=== PATIENT | female | born 1935 | race African-American/Black ===

== ENCOUNTER 2016-06-28 13:00 | Outpatient (RCR) | payer MEDICARE, OTHER ==
[~2016-06-28 13:00] MED LIST: AMOXIL250 MG ORAL; ARICEPT10 MG ORAL; ASPIRIN EC81 MG ORAL; ATORVASTATIN CA10 MG ORAL; CORDARONE200 M1 ORAL; COREG12.5 MG ORAL; COZAAR50 MG PO; GLUCOPHAGE500 MG ORAL; IMODIUM MS REL1 EAC1 PO; LANOXIN125 MCG ORAL; LOSARTAN POTAS100 MG ORAL; METFORMIN HCL1000 M1 ORAL; NORVASC10 MG ORAL; SIMVASTATIN40 MG ORAL
== END 2016-07-20 | disposition home or self-care (01) ==
LOC: WCC 13:00
DX: L89.152 Pressure ulcer of sacral region, stage 2 (principal); L89.312 Pressure ulcer of right buttock, stage 2; G81.00 Flaccid hemiplegia affecting unspecified side; G81.91 Hemiplegia, unspecified affecting right dominant side; E11.9 Type 2 diabetes mellitus without complications; I10 Essential (primary) hypertension; I25.2 Old myocardial infarction
CPT/HCPCS: G0463 ×2

== ENCOUNTER 2016-08-09 12:47 | Outpatient (RCR) | payer MEDICARE, OTHER ==
[~2016-08-09] VITALS: Ht 162.6 cm; Wt 52.6 kg
[2016-08-13] MEDS ORDERED: Neosporin Oint 15gm TOPIC ONE (11:45)
== END 2016-08-17 | disposition home or self-care (01) ==
LOC: WCC 12:47
DX: L89.152 Pressure ulcer of sacral region, stage 2 (principal); G81.00 Flaccid hemiplegia affecting unspecified side; L89.312 Pressure ulcer of right buttock, stage 2; L89.012 Pressure ulcer of right elbow, stage 2; L89.153 Pressure ulcer of sacral region, stage 3; Z86.73 Personal history of transient ischemic attack (TIA), and cerebral infarction without residual deficits; E11.9 Type 2 diabetes mellitus without complications; I25.2 Old myocardial infarction; I10 Essential (primary) hypertension
CPT/HCPCS: G0463

== ENCOUNTER 2016-08-23 11:00 | Outpatient (RCR) | payer MEDICARE, OTHER ==
[~2016-08-23] VITALS: Ht 162.6 cm; Wt 52.6 kg
[2016-09-08] MEDS ORDERED: Lidocaine HCl 2% Jelly 5ml Tube TOPIC ONE (12:30)
== END 2016-09-17 | disposition home or self-care (01) ==
LOC: WCC 11:00
DX: L89.153 Pressure ulcer of sacral region, stage 3 (principal); L89.013 Pressure ulcer of right elbow, stage 3; G81.00 Flaccid hemiplegia affecting unspecified side; E11.9 Type 2 diabetes mellitus without complications; I10 Essential (primary) hypertension; I25.2 Old myocardial infarction
CPT/HCPCS: 11042

== ENCOUNTER 2016-10-04 13:13 | Outpatient (RCR) | payer MEDICARE, OTHER | END 2016-10-17 | disposition home or self-care (01) | LOC: WCC 13:13 | DX: L89.153 Pressure ulcer of sacral region, stage 3 (principal); L89.013 Pressure ulcer of right elbow, stage 3; G81.00 Flaccid hemiplegia affecting unspecified side; L89.211 Pressure ulcer of right hip, stage 1; I10 Essential (primary) hypertension; E11.9 Type 2 diabetes mellitus without complications; I25.2 Old myocardial infarction | CPT/HCPCS: 11042 ==

== ENCOUNTER 2016-10-18 12:33 | Outpatient (RCR) | payer MEDICARE, OTHER ==
[~2016-10-18] VITALS: Ht 162.6 cm; Wt 52.6 kg
[2016-11-05] MEDS ORDERED: Lidocaine HCl 2% Jelly 5ml Tube TOPIC ONE (15:30)
== END 2016-11-17 | disposition home or self-care (01) ==
LOC: WCC 12:33
DX: L89.153 Pressure ulcer of sacral region, stage 3 (principal); L89.013 Pressure ulcer of right elbow, stage 3; G81.00 Flaccid hemiplegia affecting unspecified side; L89.211 Pressure ulcer of right hip, stage 1; E11.9 Type 2 diabetes mellitus without complications; I10 Essential (primary) hypertension; Z86.73 Personal history of transient ischemic attack (TIA), and cerebral infarction without residual deficits; I25.2 Old myocardial infarction
CPT/HCPCS: 11043

== ENCOUNTER 2016-10-18 13:30 | Outpatient (CLI) | payer MEDICARE, OTHER ==
[2016-10-18 14:31] LABS: ALANINE AMINOTRANSFERASE 31 U/L (3-33); ALBUMIN/GLOBULIN RATIO 1.4 (1.0-2.7); ANION GAP 28 (5-15); ASPARTATE AMINO TRANSFERASE 33 U/L (5-40); CALCIUM 9.2 mg/dL (8.6-10.2); CARBON DIOXIDE 11 mEQ/L (20-30); CHLORIDE 102 mEQ/L (98-107); CREATININE 0.8 mg/dL (0.5-0.9); HEMOLYSIS 47; POTASSIUM 4.4 mEQ/L (3.4-4.9); SODIUM 141 mEQ/L (135-145); TOTAL PROTEIN 6.5 g/dL (6.6-8.7)
== END 2016-10-18 15:00 | disposition home or self-care (01) ==
LOC: LAB 13:30
DX: E46 Unspecified protein-calorie malnutrition (principal)
CPT/HCPCS: 36415; 80053

== ENCOUNTER 2016-11-24 13:27 | Outpatient (RCR) | payer MEDICARE, OTHER ==
[~2016-11-24] VITALS: Ht 162.6 cm; Wt 52.6 kg
[2016-11-26] MEDS ORDERED: Lidocaine HCl 2% Jelly 5ml Tube TOPIC ONE (14:45)
[2016-11-26] MEDS ORDERED: MULTIVITAMINS1 EAC2 ORAL (17:23)
[2016-12-01] MEDS ORDERED: LASIX20 M1 ORAL (07:48)
[2016-12-01] MEDS ORDERED: ZITHROMAX250 MG ORAL (07:48)
[2016-12-01] MEDS ORDERED: DUONEB 0.5-3(2.53 ML HHN (07:48)
[2016-12-01] MEDS ORDERED: JANUVIA25 MG ORAL (07:48)
== END 2016-12-17 | disposition home or self-care (01) ==
LOC: WCC 13:27
DX: L89.153 Pressure ulcer of sacral region, stage 3 (principal); G81.00 Flaccid hemiplegia affecting unspecified side; Z87.891 Personal history of nicotine dependence; Z86.73 Personal history of transient ischemic attack (TIA), and cerebral infarction without residual deficits; E11.9 Type 2 diabetes mellitus without complications; I10 Essential (primary) hypertension; I25.2 Old myocardial infarction
CPT/HCPCS: 11043

== ENCOUNTER 2016-11-26 15:38 | Inpatient (IN) | payer MEDICARE, OTHER ==
[~2016-11-26] VITALS: Ht 165.1 cm; Wt 53.5 kg
[2016-11-26] MEDS ORDERED: Solu-MEDROL 125mg Inj IVP ONE (16:00)
[2016-11-26] MEDS ORDERED: Ipratropium 0.02% Inh Soln 2.5ml UD HHN ONE (16:00)
--- NOTE | 2016-11-26 16:00 | Emergency Room Report ---
History of Present Illness General Chief Complaint: To Be Triaged Source: Patient, Caregiver Present Illness HPI The patient presents with wheezing and congestion her lungs. This has gotten worse since Tuesday. She's had episodes in the past and had a nebulizer prescribed in 2012. She has used it less than once a year. Since Tuesday however it's not been helpful. The buncher machine denies any vomiting. She has a recent swallowing studies but the results are not available at this time. She' s had a stroke in the past. The patient also has green diarrhea. She has not had recent antibiotics. The patient denies pain at this time. No documented fevers. She's a very distant history of smoking. 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 She was recently in hospice however the buncher machine discharged her from hospice because they were not helping. No chest pain. No abdominal pain. No rashes. No depression. Allergies: Coded Allergies: No Known Allergies (Verified , 06/03/10) Patient History Past Medical History: see triage record Past Surgical History: pacemaker Social History: Denies: smoking - distant Social History Narrative daughter is buncher machine Reviewed Nursing Documentation: PMH: Agreed, PSxH: Agreed Nursing Documentation-PMH Hx Cardiac Problems: Yes Hx Hypertension: Yes Hx Pacemaker: Yes Hx Asthma: Yes Hx COPD: No Hx Diabetes: Yes Hx Cancer: No Hx Gastrointestinal Problems: Yes - gallstones Hx Dialysis: No Hx Neurological Problems: Yes Hx Cerebrovascular Accident: Yes Hx Dementia: Yes Hx Seizures: No Hx Peripheral Neuropathy: Yes Hx Concentration Difficulty: Yes Hx Speech Problem: Yes - garbled Hx Weakness: Yes - right sided Review of Systems All Other Systems: negative except mentioned in HPI Physical Exam Vital Signs Date Time Temp Pulse Resp B/P Pulse Ox O2 Delivery O2 Flow Rate FiO2 11/26/16 16:08 77 15 Room Air 11/26/16 16:09 99.7 110/63 100 11/26/16 20:00 2.0 11/26/16 21:30 32 Sp02 EP Interpretation: reviewed, normal General Appearance: no apparent distress, GCS 15, Chronically Ill Head: normocephalic Eyes: bilateral eye PERRL, bilateral eye normal inspection ENT: dry mucus membranes Neck: supple Respiratory: no respiratory distress, crackles, rales, wheezing, expiration Cardiovascular #1: regular rate, rhythm Cardiovascular #2: 2+ radial (R) Gastrointestinal: normal inspection, normal bowel sounds, non tender, no mass, non-distended Musculoskeletal: back normal, gait/station normal, normal range of motion Neurologic: alert, DTRs symmetric, motor weakness - R and facial assymmetry, oriented - X2 Psychiatric: mood/affect normal Skin: normal inspection, warm/dry Medical Decision Making Diagnostic Impression: Primary Impression: Pneumonia Qualified Codes: J18.1 - Lobar pneumonia, unspecified organism Additional Impressions: COPD exacerbation Dysphagia Qualified Codes: R13.10 - Dysphagia, unspecified Sepsis Qualified Codes: A41.9 - Sepsis, unspecified organism ER Course The patient presents with wheezing congestion. In addition to that she's had a normal swallowing and has decreased oral intake. Differential includes aspiration pneumonia, COPD exacerbation, acute myocardial infarction, dehydration, congestive heart failure amongst others. Dilation B. was EKG, labs and chest x-ray. In addition to that she will receive breathing treatments and sitting Medrol a. Will be evaluating her for the possibility of pneumonia with blood cultures and lactate. The fact she has problems with swallowing and is not eating is significant and might contribute to the respiratory problem possibly stemming from the prior stroke. White count is normal however lactate is 6. X-ray reveals a left lower lobe infiltrate and COPD. Antibiotics were ordered and also fluid bolus is ordered. She is improved with breathing treatments and fluids. The patient is admitted to medical floor under the care of Dr. Estrella. Laboratory Tests Test 11/26/16 16:36 11/26/16 17:35 White Blood Count 7.6 K/UL (4.8-10.8) Red Blood Count 4.38 M/UL (4.20-5.40) Hemoglobin 10.6 G/DL (12.0-16.0) L Hematocrit 33.7 % (37.0-47.0) L Mean Corpuscular Volume 77 FL (80-99) L Mean Corpuscular Hemoglobin 24.2 PG (27.0-31.0) L Mean Corpuscular Hemoglobin Concent 31.5 G/DL (32.0-36.0) L Red Cell Distribution Width 18.7 % (11.6-14.8) H Platelet Count 200 K/UL (150-450) Mean Platelet Volume 7.8 FL (6.5-10.1) Neutrophils (%) (Auto) 75.1 % (45.0-75.0) H Lymphocytes (%) (Auto) 15.8 % (20.0-45.0) L Monocytes (%) (Auto) 7.9 % (1.0-10.0) Eosinophils (%) (Auto) 0.3 % (0.0-3.0) Basophils (%) (Auto) 0.9 % (0.0-2.0) Prothrombin Time 10.4 SEC (9.30-11.50) Prothrombin Time INR 1.0 (0.9-1.1) PTT 26 SEC (23-33) Sodium Level 138 mEQ/L (135-145) Potassium Level 4.5 mEQ/L (3.4-4.9) Chloride Level 100 mEQ/L (98-107) Carbon Dioxide Level 14 mEQ/L (20-30) L Anion Gap 24 (5-15) H Blood Urea Nitrogen 17 mg/dL (7-23) Creatinine 0.8 mg/dL (0.5-0.9) Estimate Glomerular Filtration Rate mL/min (>60) Glucose Level 130 mg/dL (74-106) H Lactic Acid Level 6.00 mmol/L (0.66-2.22) H Calcium Level 9.0 mg/dL (8.6-10.2) Total Bilirubin 0.3 mg/dL (0.0-1.2) Aspartate Amino Transferase (AST) 101 U/L (5-40) H Alanine Aminotransferase (ALT) 131 U/L (3-33) H Alkaline Phosphatase 76 U/L (35-104) Troponin I < 0.30 ng/mL (<=0.30) Pro-B-Type Natriuretic Peptide 4041 pg/mL (0-450) H Total Protein 6.5 g/dL (6.6-8.7) L Albumin 3.1 g/dL (3.5-5.2) L Globulin 3.4 g/dL Albumin/Globulin Ratio 0.9 (1.0-2.7) L Urine Color Yellow Urine Appearance Clear Urine pH 5 (4.5-8.0) Urine Specific [place] 1.015 (1.005-1.035) Urine Protein 2+ (NEGATIVE) H Urine Glucose (UA) Negative (NEGATIVE) Urine Ketones Negative (NEGATIVE) Urine Occult Blood 4+ (NEGATIVE) H Urine Nitrite Negative (NEGATIVE) Urine Bilirubin Negative (NEGATIVE) Urine Urobilinogen Normal MG/DL (0.0-1.0) Urine Leukocyte Esterase 2+ (NEGATIVE) H Urine RBC Pending Urine WBC Pending Urine Squamous Epithelial Cells Pending Urine Bacteria Pending EKG Diagnostic Results Rate: normal Rhythm: NSR ST Segments: other - RBBB Rhythm Strip Diag. Results EP Interpretation: yes Rhythm: NSR, no PVC's, no ectopy Chest X-Ray Diagnostic Results Chest X-Ray Ordered: Yes # of Views/Limited/Complete: 1 View Interpretation: no effusion, no pneumothorax, other - copd, pacer, LLL infiltrate, possible paratracheal mass R, dilated bowels Indication: Shortness of Breath Impression: Other - see above Date Electronically Signed: Nov 26, 2016 Time Electronically Signed: 16:32 - ewa Last Vital Signs Date Time Temp Pulse Resp B/P Pulse Ox O2 Delivery O2 Flow Rate FiO2 11/26/16 23:47 78 16 99 Nasal Cannula 3.0 32 11/26/16 21:00 120/73 11/26/16 21:00 98.1 Status: improved Disposition: ADMITTED INPATIENT Condition: Serious Robert Singh M.D. Nov 26, 2016 16:00
[2016-11-26] MEDS: Albuterol ud Inhalation HHN SCH ×3 (16:10→16:26)
--- NOTE | 2016-11-26 16:48 | Diagnostic Imaging Report ---
Indication: DYSPNEA Technique: One view of the chest Comparison: 09/19/2015 Findings: Hemidiaphragm remains elevated, more so than on the prior exam. There is some consolidation at the left lung base. The bilateral pleural spaces, right lung are clear. Calcified granuloma remains in the left hilar region Right paratracheal density is unchanged from the previous as well as multiple earlier exams. Left chest AICD remains Impression: Left basilar infiltrate, likely pneumonia Other findings as noted
[2016-11-26 17:09] LABS: BASOPHILS % (AUTO) 0.9 % (0.0-2.0); EOSINOPHILS % (AUTO) 0.3 % (0.0-3.0); LYMPHOCYTES % (AUTO) 15.8 % (20.0-45.0); MEAN CORPUSCULAR HEMOGLOBIN 24.2 PG (27.0-31.0); MEAN CORPUSCULAR HGB CONC 31.5 G/DL (32.0-36.0); MEAN CORPUSCULAR VOLUME 77 FL (80-99); MEAN PLATELET VOLUME 7.8 FL (6.5-10.1); MONOCYTES % (AUTO) 7.9 % (1.0-10.0); NEUTROPHILS % (AUTO) 75.1 % (45.0-75.0); PLATELET COUNT 200 K/UL (150-450); RED BLOOD COUNT 4.38 M/UL (4.20-5.40); RED CELL DISTRIBUTION WIDTH 18.7 % (11.6-14.8); WHITE BLOOD COUNT 7.6 K/UL (4.8-10.8)
[2016-11-26 17:16] LABS: PROTHROMBIN TIME 10.4 SEC (9.30-11.50)
[2016-11-26] MEDS ORDERED: MULTIVITAMINS1 EAC2 ORAL (17:23)
[2016-11-26 17:31] LABS: TROPONIN I < 0.30 ng/mL (<=0.30)
[2016-11-26 17:34] LABS: ALANINE AMINOTRANSFERASE 131 U/L (3-33); ALBUMIN/GLOBULIN RATIO 0.9 (1.0-2.7); ANION GAP 24 (5-15); ASPARTATE AMINO TRANSFERASE 101 U/L (5-40); CARBON DIOXIDE 14 mEQ/L (20-30); CHLORIDE 100 mEQ/L (98-107); CREATININE 0.8 mg/dL (0.5-0.9); HEMOLYSIS 51; POTASSIUM 4.5 mEQ/L (3.4-4.9); SODIUM 138 mEQ/L (135-145); TOTAL PROTEIN 6.5 g/dL (6.6-8.7)
[2016-11-26 18:10] LABS: REFLEX LACTIC ACID YES OR NO YES
[2016-11-26 18:11] VITALS: BP 116/56
[2016-11-26 18:22] LABS: APPEARANCE,URINE CLEAR; KETONES,URINE NEGATIVE (NEGATIVE); LEUKOCYTE ESTERASE ,URINE 2+ (NEGATIVE); NITRITE,URINE NEGATIVE (NEGATIVE); PH,URINE 5 (4.5-8.0); PROTEIN,URINE 2+ (NEGATIVE); UROBILINOGEN,URINE NORMAL MG/DL (0.0-1.0)
[2016-11-26] MEDS ORDERED: cefTRIAXone 1 GM in NS 55 ML IVPB ONE (18:30)
[2016-11-26] MEDS ORDERED: Azithromycin 500 MG in D5W 275 ML IVPB ONE (18:30)
[2016-11-26 18:49] LABS: AMORPHOUS SEDIMENT,UR FEW /LPF; BACTERIA,URINE MANY /HPF; SQUAMOUS EPITHELIAL CELL,UR FEW /LPF (NONE/OCC)
[2016-11-26] MEDS ORDERED: NS 1000ml 1,600 ML IVLG ONE (19:00)
[2016-11-26 19:57] VITALS: BP 121/63
[2016-11-26 20:00] VITALS: BP 125/49
[2016-11-26] MEDS ORDERED: Azithromycin Inj IV ONE (20:16)
[2016-11-26 21:00] VITALS: BP 120/73
[2016-11-26] MEDS ORDERED: D5 1/2NS 1,000 ML IV SCH (22:00)
[2016-11-26] MEDS: DuoNeb 0.5-3(2.5)mg/3ml neb HHN SCH (23:38)
[2016-11-27] MEDS: DuoNeb 0.5-3(2.5)mg/3ml neb HHN SCH ×3 (07:11→19:44)
[2016-11-27 08:03] VITALS: BP 130/82
[2016-11-27] MEDS ORDERED: D5 1/2NS 1000ml IV ONE (09:08)
[2016-11-27 11:14] VITALS: BP 130/76
[2016-11-27 16:08] VITALS: BP 139/67
[2016-11-27 20:00] VITALS: BP 129/73
[2016-11-27] MEDS: cefTRIAXone 1 GM in D5W 55 ML IVPB SCH (20:48)
[2016-11-27] MEDS ORDERED: Solu-MEDROL 40mg Inj IVP STA (21:08)
--- NOTE | 2016-11-27 21:08 | History & Physical ---
History and Physical History & Physicial [id number] pna uti sepsis cva right sided weakness dysphagia expressive aphsia cough nonmabultion, deconditioning dm copd iv abx steroids bs control resume home meds o2 dvt prophylaxis is repeat cxr and labs in ELLIE Greene DO Nov 27, 2016 21:08
[2016-11-27] MEDS: Azithromycin 500 MG in D5W 275 ML IV SCH (21:37)
[2016-11-28] MEDS ORDERED: DuoNeb 0.5-3(2.5)mg/3ml neb HHN SCH (01:00)
--- NOTE | 2016-11-28 03:15 | History and Physical Report ---
DATE OF ADMISSION: 11/26/2016 REASON FOR ADMISSION: Pneumonia. HISTORY OF PRESENT ILLNESS: The patient is an elderly female known with cough, wheezing, and congestion and has been progressively worse over the last week. She says she coughs and she aspirates. She has had no episodes of nausea, vomiting, or diarrhea. She does live in a correction and does have a caregiver. She has had no known fevers or chills. She has lost some weight. She is nonambulatory. Apparently, she did have a recent swallow study, but these results are unavailable and she does have a stroke with significant amount of dysphagia. PAST MEDICAL HISTORY: Includes pacemaker, hypertension, asthma, diabetes, gall stones, CVA, dementia, gait dysfunction, and right-sided weakness. SOCIAL HISTORY: Positive for tobacco in the past. No alcohol or drugs. FAMILY HISTORY: Noncontributory. MEDICATIONS: Pre-hospital and present medications have been reviewed, reconciled and documented in the electronic medical record. PHYSICAL EXAMINATION: GENERAL: At the time of my exam, she is alert. She is oriented to person. She is in no acute respiratory distress. She is afebrile. VITAL SIGNS: Pulse is 82, respirations 18, and blood pressure 129/73. She is 98% on room air. HEENT: She is normocephalic and atraumatic. Neck is supple. Oropharynx is moist. Nasal mucosa is moist. Speech is slurred. LUNGS: Have bilateral rhonchi with scant wheezing. HEART: Regular rate and rhythm without murmur. ABDOMEN: Soft and nontender. Positive bowel sounds. EXTREMITIES: Findings of right-sided upper lower extremity weak and dysphagia. Expressive aphasia is noted. She is dysarthric when she does converse. LABORATORY AND DIAGNOSTIC DATA: Her white count is 7.6, her hemoglobin 10.6, and her platelets are 200,000. Her sodium is 138, potassium 4.5, chloride 100, bicarbonate 24, BUN 17, creatinine 0.8, and glucose is 130. She did have an initial lactic acid of 6, which is down to 5.5 and was not repeated. Her AST is 101. Her ALT is 131. Her MPA is 41. Troponin is negative. Urinalysis is positive for leukocyte esterase. Her chest x-ray shows a left lower lobe pneumonia. ASSESSMENT: 1. Urinary tract infection. 2. Pneumonia. 3. History of cerebrovascular accident with right-sided weakness. 4. Dysphagia and dysarthria, suspect aspiration. 5. Hypertension. 6. Diabetes. 7. Dementia. 8. Congestive heart failure. PLAN: Plan for the patient, we will continue her on intravenous antibiotics. She has been started nebulizer treatments at bedside swallow. We will also initiate intravenous steroids as she is needing. O2 to maintain sats greater than 90%. DVT prophylaxis. Wound care. Glycemic control. Resume her pre-hospital medications and we will repeat her laboratories, replace her lytes and consideration for a 2D echo and monitor her BNP. She is currently not receiving intravenous fluids and may actually benefit from mild diuresis as well. Alisia Farooq D.O. DR: OSCAR JOB#: [id number] CC:
[2016-11-28] MEDS: NovoLOG Insulin Flexpen SUBQ SCH ×4 (06:15→20:35)
[2016-11-28 07:46] LABS: REFLEX LACTIC ACID YES OR NO YES
[2016-11-28 07:50] LABS: MEAN CORPUSCULAR HEMOGLOBIN 22.8 PG (27.0-31.0); MEAN CORPUSCULAR HGB CONC 30.2 G/DL (32.0-36.0); MEAN CORPUSCULAR VOLUME 76 FL (80-99); MEAN PLATELET VOLUME 7.9 FL (6.5-10.1); PLATELET COUNT 253 K/UL (150-450); RED BLOOD COUNT 4.32 M/UL (4.20-5.40); RED CELL DISTRIBUTION WIDTH 18.3 % (11.6-14.8); WHITE BLOOD COUNT 7.9 K/UL (4.8-10.8)
[2016-11-28 07:51] LABS: ALANINE AMINOTRANSFERASE 85 U/L (3-33); ANION GAP 21 (5-15); ASPARTATE AMINO TRANSFERASE 41 U/L (5-40); BILIRUBIN,DIRECT 0.1 mg/dL (0.1-0.3); CALCIUM 8.4 mg/dL (8.6-10.2); CARBON DIOXIDE 19 mEQ/L (20-30); CHLORIDE 92 mEQ/L (98-107); CREATININE 0.6 mg/dL (0.5-0.9); HEMOLYSIS 2; LIPASE 12 U/L (< 60); POTASSIUM 3.8 mEQ/L (3.4-4.9); SODIUM 132 mEQ/L (135-145); TOTAL PROTEIN 6.1 g/dL (6.6-8.7)
[2016-11-28 08:00] VITALS: BP 134/54
[2016-11-28 08:06] LABS: TROPONIN I < 0.30 ng/mL (<=0.30)
[2016-11-28] MEDS: Carvedilol 12.5mg tab ORAL SCH ×2 (08:15→20:30)
[2016-11-28] MEDS: Amiodarone 200mg tab ORAL SCH (08:15)
[2016-11-28] MEDS: metFORMIN 500mg tab ORAL SCH ×2 (08:15→20:31)
[2016-11-28] MEDS: Aspirin EC 81mg tab ORAL SCH (08:15)
[2016-11-28 08:35] LABS: ANISOCYTOSIS 1+; BAND NEUTROPHILS % (MANUAL) 3 % (0-8); BASOPHILS % (MANUAL) 0 % (0-2); BURR CELLS OCCASIONAL; EOSINOPHILS % (MANUAL) 0 % (0-3); HYPOCHROMASIA 1+; LYMPHOCYTES % (MANUAL) 9 % (20-45); NEUTROPHILS % (MANUAL) 87 % (45-75); PLATELET ESTIMATE ADEQUATE; PLATELET MORPHOLOGY NORMAL; TOTAL CELLS COUNTED 100
--- NOTE | 2016-11-28 11:05 | Diagnostic Imaging Report ---
Indication: Dyspnea Comparison: 11/26/16 A single view chest radiograph was obtained. Findings: Interstitial opacities and prominent vascularity are noted. The heart is enlarged. Left hemidiaphragm is elevated. Pacemaker again noted. Impression: Interstitial edema/CHF suspected. Findings appear slightly worse compared to the last study. Please correlate clinically.
[2016-11-28] MEDS: DuoNeb 0.5-3(2.5)mg/3ml neb HHN SCH ×4 (11:16→23:14)
[2016-11-28 12:00] VITALS: BP 112/67
[2016-11-28 16:00] VITALS: BP 115/64
[2016-11-28] MEDS: Azithromycin 500 MG in D5W 275 ML IV SCH (18:20)
[2016-11-28] MEDS ORDERED: 1/2 NS 1000ml IV ONE (18:48)
[2016-11-28] MEDS ORDERED: Tubing IV Secondary IV ONE (18:48)
[2016-11-28] MEDS ORDERED: NS 550ML IV ONE (18:48)
--- NOTE | 2016-11-28 19:47 | Pulmonology Progress Note ---
Assessment/Plan Assessment/Plan 1. Urinary tract infection. 2. Pneumonia. 3. History of cerebrovascular accident with right-sided weakness. 4. Dysphagia and dysarthria, suspect aspiration. 5. Hypertension. 6. Diabetes. 7. Dementia. 8. Congestive heart failure. 9. bronchospasm Plan resume steroids 40 mg iv daily nebs supple o2 check echo continue abx fu swallow recommendations may need diuresis Subjective Respiratory: Reports: productive cough, wheezing Cardiovascular: Reports: no symptoms Gastrointestinal/Abdominal: Reports: no symptoms Genitourinary: Reports: no symptoms Allergies: Coded Allergies: No Known Allergies (Verified , 06/03/10) Subjective feeling better bur still wheezing steroids helped but only 1 dose given nebs helpful as well no cp nv or bleeding swallow eval is pending Objective Last 24 Hour Vital Signs Date Time Temp Pulse Resp B/P Pulse Ox O2 Delivery O2 Flow Rate FiO2 11/28/16 19:25 78 16 99 Room Air 11/28/16 19:07 88 16 99 Room Air 11/28/16 19:07 Room Air 11/28/16 19:07 99 Room Air 11/28/16 16:00 98.1 72 18 115/64 Room Air 11/28/16 14:37 76 16 99 Room Air 11/28/16 14:31 76 16 99 Room Air 11/28/16 12:00 96.1 73 19 112/67 90 Room Air 11/28/16 11:17 69 16 99 Room Air 11/28/16 11:13 60 16 99 Room Air 11/28/16 08:15 82 118/73 11/28/16 08:00 97.0 75 19 134/54 100 Room Air 11/28/16 07:05 74 16 99 Room Air 11/28/16 07:05 Room Air 11/28/16 07:05 99 Room Air 11/28/16 07:00 71 16 99 Room Air 11/28/16 01:50 75 16 99 Room Air 11/28/16 01:43 74 16 99 Room Air 21 11/27/16 20:00 97.9 78 20 129/73 97 Room Air 11/27/16 20:00 82 18 98 Room Air 21 11/27/16 19:47 Room Air 11/27/16 19:47 97 Room Air 11/27/16 19:47 80 18 97 Room Air 21 Intake and Output 11/27/16 11/28/16 19:00 07:00 Intake Total 1475 ml 330 ml Output Total 900 ml Balance 1475 ml -570 ml Intake Oral 1100 ml IV Total 375 ml 330 ml Output Urine Total 900 ml # Voids 3 # Bowel Movements 1 General Appearance: cachetic HEENT: atraumatic Respiratory/Chest: crackles/rales, rhonchi Cardiovascular: normal rate, regular rhythm, murmur systolic Abdomen: soft, non tender Extremities: no cyanosis Skin: no rash Neurologic/Psychiatric: alert Lymphatic: no neck adenopathy Musculoskeletal: normal muscle bulk Microbiology Date/Time Source Procedure Growth Status 11/26/16 16:39 Blood Blood Culture - Preliminary NO GROWTH AFTER 24 HOURS Resulted 11/26/16 16:26 Blood Blood Culture - Preliminary NO GROWTH AFTER 24 HOURS Resulted 11/26/16 17:35 Urine,Clean Catch Urine Culture - Preliminary Gram Negative Johny Resulted Laboratory Tests 11/28/16 04:50: White Blood Count 7.9, Red Blood Count 4.32, Hemoglobin 9.8L, Hematocrit 32.7L, Mean Corpuscular Volume 76L, Mean Corpuscular Hemoglobin 22.8L, Mean Corpuscular Hemoglobin Concent 30.2L, Red Cell Distribution Width 18.3H, Platelet Count 253, Mean Platelet Volume 7.9, Neutrophils (%) (Auto) , Lymphocytes (%) (Auto) , Monocytes (%) (Auto) , Eosinophils (%) (Auto) , Basophils (%) (Auto) , Differential Total Cells Counted 100, Neutrophils % ( Manual) 87H, Lymphocytes % (Manual) 9L, Monocytes % (Manual) 1, Eosinophils % ( Manual) 0, Basophils % (Manual) 0, Band Neutrophils 3, Platelet Estimate Adequate, Platelet Morphology Normal, Hypochromasia 1+, Anisocytosis 1+, Mary Cells Occasional, Sodium Level 132L, Potassium Level 3.8, Chloride Level 92L, Carbon Dioxide Level 19L, Anion Gap 21H, Blood Urea Nitrogen 7, Creatinine 0.6, Estimat Glomerular Filtration Rate , Glucose Level 222H, Lactic Acid Level 3.70H , Calcium Level 8.4L, Total Bilirubin 0.4, Direct Bilirubin 0.1, Aspartate Amino Transf (AST/SGOT) 41H, Alanine Aminotransferase (ALT/SGPT) 85H, Alkaline Phosphatase 73, Troponin I < 0.30, Pro-B-Type Natriuretic Peptide 5928H, Total Protein 6.1L, Albumin 3.0L, Lipase 12 11/28/16 12:35: Lactic Acid Level 6.10H Current Medications Medications (Trade) Dose Ordered Sig/Sam Route PRN Reason Start Time Stop Time Status Last Admin Dose Admin Albuterol/ Ipratropium (DuoNeb 0.5-3(2.5)mg/3ml) 3 ml Q4HRT HHN 11/28/16 08:00 12/03/16 00:59 11/28/16 19:07 Amiodarone HCl (Cordarone) 200 mg DAILY ORAL 11/28/16 09:00 12/28/16 08:59 11/28/16 08:15 Aspirin (Ecotrin) 81 mg DAILY ORAL 11/28/16 09:00 12/28/16 08:59 11/28/16 08:15 Atorvastatin Calcium (Lipitor) 10 mg DAILY ORAL 11/28/16 09:00 12/28/16 08:59 11/28/16 08:16 Azithromycin 500 mg/Dextrose 275 ml @ 275 mls/hr Q24HRS IV 11/27/16 19:00 12/03/16 19:59 11/28/16 18:20 Carvedilol (Coreg) 12.5 mg EVERY 12 HOURS ORAL 11/28/16 09:00 12/28/16 08:59 11/28/16 08:15 Ceftriaxone Sodium/Dextrose (Rocephin/D5W) 55 ml @ 110 mls/hr Q24H IVPB 11/27/16 21:00 12/04/16 20:59 11/27/16 20:48 Dextrose (Dextrose 50%) STAT PRN IV Hypoglycemia 11/27/16 21:15 12/27/16 21:14 Insulin Aspart (NovoLOG) BEFORE MEALS AND HS SUBQ 11/28/16 06:30 12/28/16 06:29 11/28/16 16:15 Metformin HCl (Glucophage) 1,000 mg Q12HR ORAL 11/28/16 09:00 12/28/16 08:59 11/28/16 08:15 ELLIE CORREA DO Nov 28, 2016 19:47
[2016-11-28 20:00] VITALS: BP 100/57
[2016-11-28] MEDS ORDERED: Solu-MEDROL 40mg Inj IVP ONE (20:00)
[2016-11-28] MEDS: cefTRIAXone 1 GM in D5W 55 ML IVPB SCH (20:32)
[2016-11-29] VITALS: BP 154/78
[2016-11-29 04:00] VITALS: BP 117/65
[2016-11-29] MEDS: NovoLOG Insulin Flexpen SUBQ SCH ×4 (06:02→21:41)
[2016-11-29 07:17] LABS: TROPONIN I < 0.30 ng/mL (<=0.30)
[2016-11-29 07:19] LABS: ANION GAP 21 (5-15); CALCIUM 8.4 mg/dL (8.6-10.2); CARBON DIOXIDE 20 mEQ/L (20-30); CHLORIDE 96 mEQ/L (98-107); CREATININE 0.7 mg/dL (0.5-0.9); HEMOLYSIS 6; POTASSIUM 4.1 mEQ/L (3.4-4.9); SODIUM 137 mEQ/L (135-145)
[2016-11-29 07:26] LABS: MEAN CORPUSCULAR HGB CONC 32.1 G/DL (32.0-36.0); MEAN CORPUSCULAR VOLUME 78 FL (80-99); MEAN PLATELET VOLUME 7.1 FL (6.5-10.1); PLATELET COUNT 220 K/UL (150-450); RED BLOOD COUNT 3.81 M/UL (4.20-5.40); RED CELL DISTRIBUTION WIDTH 18.2 % (11.6-14.8); WHITE BLOOD COUNT 6.1 K/UL (4.8-10.8)
[2016-11-29] MEDS: DuoNeb 0.5-3(2.5)mg/3ml neb HHN SCH ×6 (07:33→23:17)
[2016-11-29 08:03] VITALS: BP 127/66
[2016-11-29] MEDS ORDERED: Tubing IV Secondary IV ONE (08:18)
[2016-11-29] MEDS ORDERED: D5 1/2NS 1000ml IV ONE (08:18)
[2016-11-29] MEDS: Carvedilol 12.5mg tab ORAL SCH ×2 (08:45→21:30)
[2016-11-29] MEDS: metFORMIN 500mg tab ORAL SCH ×2 (08:45→21:00)
[2016-11-29] MEDS: Aspirin EC 81mg tab ORAL SCH (08:45)
[2016-11-29] MEDS: Amiodarone 200mg tab ORAL SCH (08:45)
[2016-11-29] MEDS ORDERED: Solu-MEDROL 40mg Inj IVP SCH (09:00)
[2016-11-29 10:08] LABS: ANISOCYTOSIS 1+; BAND NEUTROPHILS % (MANUAL) 0 % (0-8); BASOPHILS % (MANUAL) 0 % (0-2); BURR CELLS OCCASIONAL; EOSINOPHILS % (MANUAL) 0 % (0-3); HYPOCHROMASIA 1+; LYMPHOCYTES % (MANUAL) 10 % (20-45); MICROCYTES 1+; NEUTROPHILS % (MANUAL) 87 % (45-75); PLATELET ESTIMATE ADEQUATE; PLATELET MORPHOLOGY NORMAL; TOTAL CELLS COUNTED 100
--- NOTE | 2016-11-29 10:13 | Pulmonology Progress Note ---
Assessment/Plan Assessment/Plan 1. Urinary tract infection. 2. Pneumonia. 3. History of cerebrovascular accident with right-sided weakness. 4. Dysphagia and dysarthria, suspect aspiration. 5. Hypertension. 6. Diabetes. 7. Dementia. 8. Congestive heart failure. cont abx, O2, steriods, HHN called dtr Subjective Constitutional: Denies: fever Respiratory: Reports: dry cough, Denies: shortness of breath Cardiovascular: Denies: chest pain Allergies: Coded Allergies: No Known Allergies (Verified , 06/03/10) Objective Last 24 Hour Vital Signs Date Time Temp Pulse Resp B/P Pulse Ox O2 Delivery O2 Flow Rate FiO2 11/29/16 08:45 72 127/66 11/29/16 08:03 96.9 72 19 127/66 100 Room Air 11/29/16 07:42 74 16 99 Room Air 11/29/16 07:34 79 14 99 Room Air 11/29/16 07:34 Room Air 11/29/16 07:34 99 Room Air 11/29/16 04:00 97.2 74 18 117/65 97 Room Air 11/29/16 00:00 97.2 74 18 154/78 100 Room Air 11/28/16 23:31 77 16 99 Room Air 11/28/16 23:14 77 14 99 Room Air 11/28/16 20:30 78 100/57 11/28/16 20:00 97.5 18 100/57 97 Room Air 11/28/16 19:25 78 16 99 Room Air 11/28/16 19:07 88 16 99 Room Air 11/28/16 19:07 Room Air 11/28/16 19:07 99 Room Air 11/28/16 16:00 98.1 72 18 115/64 Room Air 11/28/16 14:37 76 16 99 Room Air 11/28/16 14:31 76 16 99 Room Air 11/28/16 12:00 96.1 73 19 112/67 90 Room Air 11/28/16 11:17 69 16 99 Room Air 11/28/16 11:13 60 16 99 Room Air 21 Intake and Output 11/28/16 11/29/16 19:00 07:00 Intake Total 330 ml Balance 330 ml IV Total 330 ml # Voids 3 General Appearance: no acute distress Respiratory/Chest: crackles/rales Cardiovascular: normal rate Abdomen: soft, non tender Microbiology Date/Time Source Procedure Growth Status 11/26/16 16:39 Blood Blood Culture - Preliminary NO GROWTH AFTER 24 HOURS Resulted 11/26/16 16:26 Blood Blood Culture - Preliminary NO GROWTH AFTER 24 HOURS Resulted 11/26/16 17:35 Urine,Clean Catch Urine Culture - Final Klebsiella Pneumoniae Complete Laboratory Tests 11/28/16 12:35: Lactic Acid Level 6.10H 11/29/16 05:05: White Blood Count 6.1, Red Blood Count 3.81L, Hemoglobin 9.5L, Hematocrit 29.6L , Mean Corpuscular Volume 78L, Mean Corpuscular Hemoglobin 25.0L, Mean Corpuscular Hemoglobin Concent 32.1, Red Cell Distribution Width 18.2H, Platelet Count 220, Mean Platelet Volume 7.1, Neutrophils (%) (Auto) , Lymphocytes (%) (Auto) , Monocytes (%) (Auto) , Eosinophils (%) (Auto) , Basophils (%) (Auto) , Differential Total Cells Counted 100, Neutrophils % ( Manual) 87H, Lymphocytes % (Manual) 10L, Monocytes % (Manual) 3, Eosinophils % ( Manual) 0, Basophils % (Manual) 0, Band Neutrophils 0, Platelet Estimate Adequate, Platelet Morphology Normal, Hypochromasia 1+, Anisocytosis 1+, Microcytosis 1+, Mary Cells Occasional, Sodium Level 137, Potassium Level 4.1, Chloride Level 96L, Carbon Dioxide Level 20, Anion Gap 21H, Blood Urea Nitrogen 8, Creatinine 0.7, Estimat Glomerular Filtration Rate , Glucose Level 200H, Calcium Level 8.4L, Troponin I < 0.30, Pro-B-Type Natriuretic Peptide 5202H Current Medications Medications (Trade) Dose Ordered Sig/Sam Route PRN Reason Start Time Stop Time Status Last Admin Dose Admin Albuterol/ Ipratropium (DuoNeb 0.5-3(2.5)mg/3ml) 3 ml Q4HRT HHN 11/28/16 08:00 12/03/16 00:59 11/29/16 07:34 Amiodarone HCl (Cordarone) 200 mg DAILY ORAL 11/28/16 09:00 12/28/16 08:59 11/29/16 08:45 Aspirin (Ecotrin) 81 mg DAILY ORAL 11/28/16 09:00 12/28/16 08:59 11/29/16 08:45 Atorvastatin Calcium (Lipitor) 10 mg DAILY ORAL 11/28/16 09:00 12/28/16 08:59 11/29/16 08:45 Azithromycin 500 mg/Dextrose 275 ml @ 275 mls/hr Q24HRS IV 11/27/16 19:00 12/03/16 19:59 11/28/16 18:20 Carvedilol (Coreg) 12.5 mg EVERY 12 HOURS ORAL 11/28/16 09:00 12/28/16 08:59 11/29/16 08:45 Ceftriaxone Sodium/Dextrose (Rocephin/D5W) 55 ml @ 110 mls/hr Q24H IVPB 11/27/16 21:00 12/04/16 20:59 11/28/16 20:32 Dextrose (Dextrose 50%) STAT PRN IV Hypoglycemia 11/27/16 21:15 12/27/16 21:14 Insulin Aspart (NovoLOG) BEFORE MEALS AND HS SUBQ 11/28/16 06:30 12/28/16 06:29 11/29/16 06:02 Metformin HCl (Glucophage) 1,000 mg Q12HR ORAL 11/28/16 09:00 12/28/16 08:59 11/29/16 08:45 Methylprednisolone Sodium Succinate (Solu-MEDROL) 40 mg DAILY IVP 11/29/16 09:00 12/29/16 08:59 11/29/16 09:37 EDWARDO HOOKS 12, 2017 10:13
--- NOTE | 2016-11-29 10:14 | Wound Care Consultation ---
Wound Assessment Wound Assessment #1: Wound Present on Admission: Yes New Wound: No Status Change of Wound: No Wound Location Body Site Modif: right Wound Location Body Site: elbow Wound Type: scar Bryce Test: Does not Bryce Wound Thickness: Full Thickness Wound Length: 1.0 Wound Width: 2.0 Wound Depth: utd Percent of Wound [place]/Red: 100 Wound Drainage Amount: None Wound Drainage Odor: None/Absent Tissue Surrounding Wound: Intact Wound General Appearance: Asymptomatic, Clean/Dry Wound Assessment #2: Wound Number: #2 Wound Present on Admission: Yes New Wound: No Status Change of Wound: No Wound Location Body Site Modif: right Wound Location Body Site: heel Wound Type: pressure ulcer Bryce Test: Does not Bryce Pressure Ulcer Stage: deep tissue injury Wound Thickness: Full Thickness Wound Length: 4.0 Wound Width: 2.0 Wound Depth: utd Percent of Wound Purple/Maroon: 50 Other Colors Identified: 50 gomez color Wound Drainage Amount: None Wound Drainage Odor: None/Absent Tissue Surrounding Wound: Intact Wound General Appearance: Reddened - maroon,gomez color Wound Assessment #3: Wound Number: #3 Wound Present on Admission: Yes New Wound: No Status Change of Wound: No Wound Location Body Site Modif: mid Wound Location Body Site: sacral Wound Type: pressure ulcer Bryce Test: Does not Bryce Pressure Ulcer Stage: IV/unstageable Wound Thickness: Full Thickness Wound Length: 4.0 Wound Width: 3.0 Wound Depth: utd Percent of Wound [place]/Red: 50 Percent of Wound Bed Yellow/Wh: 50 Wound Drainage Description: Serosanguineous Wound Drainage Amount: Moderate Wound Drainage Odor: None/Absent Tissue Surrounding Wound: Macerated Wound General Appearance: Reddened, Draining, Necrotic Wound Assessment #4: Wound Number: #4 Wound Present on Admission: Yes New Wound: No Status Change of Wound: No Wound Location Body Site Modif: left Wound Location Body Site: buttocks Wound Type: scar Bryce Test: Does not Bryce Wound Thickness: Full Thickness Wound Length: 3.0 Wound Width: 2.0 Wound Depth: utd Percent of Wound [place]/Red: 100 Wound Drainage Amount: None Wound Drainage Odor: None/Absent Tissue Surrounding Wound: Intact Wound General Appearance: Asymptomatic, Open to air, Clean/Dry Wound Assessment #5: Wound Number: #5 Wound Present on Admission: Yes New Wound: No Status Change of Wound: No Wound Location Body Site Modif: right Wound Location Body Site: buttocks Wound Type: scar Bryce Test: Does not Bryce Wound Thickness: Full Thickness Wound Length: 3.0 Wound Width: 2.0 Wound Depth: utd Percent of Wound [place]/Red: 100 Wound Drainage Amount: None Wound Drainage Odor: None/Absent Tissue Surrounding Wound: Intact Wound General Appearance: Asymptomatic, Open to air, Clean/Dry Wound Assessment #6: Wound Number: #6 Wound Present on Admission: Yes New Wound: No Status Change of Wound: No Wound Location Body Site Modif: right Wound Location Body Site: ischial tuberosity Wound Type: scar Bryce Test: Does not Bryce Wound Thickness: Full Thickness Wound Length: 3.0 Wound Width: 3.0 Wound Depth: utd Percent of Wound [place]/Red: 100 Wound Drainage Amount: None Wound Drainage Odor: None/Absent Tissue Surrounding Wound: Intact Wound General Appearance: Asymptomatic, Open to air, Clean/Dry Wound Assessment #7: Wound Number: #7 Wound Present on Admission: Yes New Wound: No Status Change of Wound: No Wound Location Body Site Modif: right, lateral Wound Location Body Site: knee Wound Type: scar Bryce Test: Does not Bryce Wound Thickness: Full Thickness Wound Length: 1.0 Wound Width: 1.0 Wound Depth: utd Percent of Wound [place]/Red: 100 Wound Drainage Amount: None Wound Drainage Odor: None/Absent Tissue Surrounding Wound: Intact Wound General Appearance: Asymptomatic, Open to air, Clean/Dry Wound Comment #1 right elbow full thickness scar tissue. #2 left buttocks full thickness scar tissue. #3 right buttocks full thickness scar tissue. #4 right ischial tuberosity full thickness scar tissue. #5 right lateral knee full thickness scar tissue. #6 right heel deep tisssue injury. #7 sacral pressure ulcer stage IV/Unstageable. Recommendation. -Local wound care as ordered. -Apply pressure reducing mattress SPR. -keep clean and dry. -Turn and reposition. -Optimize nutrition. -Avoid shear and friction. -Heel protectors. -Offload both heels and feet. -Assess and notify MD for any changes of condition noted to skin. DION GROVER Nov 29, 2016 10:14
[2016-11-29 11:52] VITALS: BP 123/73
[2016-11-29 15:41] VITALS: BP 126/68
--- NOTE | 2016-11-29 17:59 | Consultation ---
History of Present Illness General Date patient seen: Nov 29, 2016 Time patient seen: 17:52 Chief Complaint: Upper Respiratory Illness Referring physician: Dr. Estrella Reason for Consultation: Pressure ulcer coccyx Present Illness HPI Patient is an 81 yof known to me from the wound care center. She was admitted on 11/26/16 for wheezing and pulmonary congestion. She was being seen at the wound center for a stage 3 pressure ulcer of the coccyx. She has a h/o CVA with right sided weakness. She has had this wound 2 separate times in the last year which have been healed. Allergies: Coded Allergies: No Known Allergies (Verified , 06/03/10) Medication History Scheduled Amiodarone Hcl* (Cordarone*), 200 MG ORAL DAILY, (Reported) Aspirin Ec* (Aspirin Ec*), 81 MG ORAL DAILY, (Reported) Atorvastatin Calcium* (Lipitor*), 10 MG ORAL DAILY, (Reported) Carvedilol (Coreg), 12.5 MG ORAL EVERY 12 HOURS, (Reported) Digoxin* (Lanoxin*), 125 MCG ORAL DAILY, (Reported) Donepezil Hcl* (Aricept*), 10 MG ORAL DAILY, (Reported) Losartan Potassium (Losartan Potassium), 100 MG ORAL DAILY, (Reported) Metformin Hcl* (Metformin Hcl*), 1,000 MG ORAL BIDAC, (Reported) Multivitamins* (Multivitamins*), 1 TAB ORAL DAILY, (Reported) Discontinued Medications Amlodipine Besylate (Norvasc), 10 MG ORAL DAILY, (Reported) Discontinued Reason: MD discontinued med Amoxicillin* (Amoxil*), 250 MG ORAL EVERY 8 HOURS Discontinued Reason: Therapy completed Patient History Limited by: medical condition History Provided By: Medical Record Healthcare decision maker Resuscitation status Advanced Directive on File Review of Systems Constitutional: Reports: no symptoms Eye: Reports: no symptoms Skin: Reports: see HPI Physical Exam General Appearance: no apparent distress, alert Lines, tubes and drains: peripheral Skin Exam: other - Pressure ulcer of the coccyx with clean base and evidence of sherwin-epithelial tissue in periphery. No maceration present. Periskin with no erythema or warmth. Musculoskeletal: atrophy Last 24 Hour Vital Signs Date Time Temp Pulse Resp B/P Pulse Ox O2 Delivery O2 Flow Rate FiO2 11/29/16 15:41 98.1 66 19 126/68 100 Room Air 11/29/16 15:19 77 16 100 Room Air 11/29/16 11:52 97.2 65 19 123/73 99 Room Air 11/29/16 11:15 76 16 99 Room Air 21 11/29/16 11:07 76 16 100 Room Air 21 11/29/16 08:45 72 127/66 11/29/16 08:03 96.9 72 19 127/66 100 Room Air 11/29/16 07:42 74 16 99 Room Air 21 11/29/16 07:34 79 14 99 Room Air 21 11/29/16 07:34 Room Air 11/29/16 07:34 99 Room Air 21 11/29/16 04:00 97.2 74 18 117/65 97 Room Air 11/29/16 00:00 97.2 74 18 154/78 100 Room Air 11/28/16 23:31 77 16 99 Room Air 21 11/28/16 23:14 77 14 99 Room Air 21 11/28/16 20:30 78 100/57 11/28/16 20:00 97.5 18 100/57 97 Room Air 11/28/16 19:25 78 16 99 Room Air 21 11/28/16 19:07 88 16 99 Room Air 21 11/28/16 19:07 Room Air 11/28/16 19:07 99 Room Air 21 Intake and Output 11/28/16 11/29/16 19:00 07:00 Intake Total 330 ml Balance 330 ml IV Total 330 ml # Voids 3 Laboratory Tests Test 11/29/16 05:05 White Blood Count 6.1 K/UL (4.8-10.8) Red Blood Count 3.81 M/UL (4.20-5.40) L Hemoglobin 9.5 G/DL (12.0-16.0) L Hematocrit 29.6 % (37.0-47.0) L Mean Corpuscular Volume 78 FL (80-99) L Mean Corpuscular Hemoglobin 25.0 PG (27.0-31.0) L Mean Corpuscular Hemoglobin Concent 32.1 G/DL (32.0-36.0) Red Cell Distribution Width 18.2 % (11.6-14.8) H Platelet Count 220 K/UL (150-450) Mean Platelet Volume 7.1 FL (6.5-10.1) Neutrophils (%) (Auto) % (45.0-75.0) Lymphocytes (%) (Auto) % (20.0-45.0) Monocytes (%) (Auto) % (1.0-10.0) Eosinophils (%) (Auto) % (0.0-3.0) Basophils (%) (Auto) % (0.0-2.0) Differential Total Cells Counted 100 Neutrophils % (Manual) 87 % (45-75) H Lymphocytes % (Manual) 10 % (20-45) L Monocytes % (Manual) 3 % (1-10) Eosinophils % (Manual) 0 % (0-3) Basophils % (Manual) 0 % (0-2) Band Neutrophils 0 % (0-8) Platelet Estimate Adequate Platelet Morphology Normal Hypochromasia 1+ Anisocytosis 1+ Microcytosis 1+ Lancing Cells Occasional Sodium Level 137 mEQ/L (135-145) Potassium Level 4.1 mEQ/L (3.4-4.9) Chloride Level 96 mEQ/L (98-107) L Carbon Dioxide Level 20 mEQ/L (20-30) Anion Gap 21 (5-15) H Blood Urea Nitrogen 8 mg/dL (7-23) Creatinine 0.7 mg/dL (0.5-0.9) Estimat Glomerular Filtration Rate mL/min (>60) Glucose Level 200 mg/dL (74-106) H Calcium Level 8.4 mg/dL (8.6-10.2) L Troponin I < 0.30 ng/mL (<=0.30) Pro-B-Type Natriuretic Peptide 5202 pg/mL (0-450) H Height (Feet): 5 Height (Inches): 5.00 Weight (Pounds): 118 Medications Current Medications Medications (Trade) Dose Ordered Sig/Sam Route PRN Reason Start Time Stop Time Status Last Admin Dose Admin Albuterol/ Ipratropium (DuoNeb 0.5-3(2.5)mg/3ml) 3 ml Q4HRT HHN 11/28/16 08:00 12/03/16 00:59 11/29/16 15:19 Amiodarone HCl (Cordarone) 200 mg DAILY ORAL 11/28/16 09:00 12/28/16 08:59 11/29/16 08:45 Aspirin (Ecotrin) 81 mg DAILY ORAL 11/28/16 09:00 12/28/16 08:59 11/29/16 08:45 Atorvastatin Calcium (Lipitor) 10 mg DAILY ORAL 11/28/16 09:00 12/28/16 08:59 11/29/16 08:45 Azithromycin 500 mg/Dextrose 275 ml @ 275 mls/hr Q24HRS IV 11/27/16 19:00 12/03/16 19:59 11/28/16 18:20 Carvedilol (Coreg) 12.5 mg EVERY 12 HOURS ORAL 11/28/16 09:00 12/28/16 08:59 11/29/16 08:45 Ceftriaxone Sodium/Dextrose (Rocephin/D5W) 55 ml @ 110 mls/hr Q24H IVPB 11/27/16 21:00 12/04/16 20:59 11/28/16 20:32 Dextrose (Dextrose 50%) STAT PRN IV Hypoglycemia 11/27/16 21:15 12/27/16 21:14 Insulin Aspart (NovoLOG) BEFORE MEALS AND HS SUBQ 11/28/16 06:30 12/28/16 06:29 11/29/16 17:03 Metformin HCl (Glucophage) 1,000 mg Q12HR ORAL 11/28/16 09:00 12/28/16 08:59 11/29/16 08:45 Methylprednisolone Sodium Succinate (Solu-MEDROL) 40 mg DAILY IVP 11/29/16 09:00 12/29/16 08:59 11/29/16 09:37 Vitamin A/Vitamin D (A & D Oint) 1 applic EVERY 12 HOURS TOPIC 11/29/16 21:00 12/29/16 20:59 Assessment/Plan Status: stable Assessment/Plan Patient with pressure ulcer of coccyx. Recommend the followin) offload by keeping her more on her sides and changing position every several hours. 2) Apply silvadene to the wound base and change daily, 3) Ensure that the area of the wound is kept as moisture free as possible. No surgical intervention needed at this time. Will coordinate follow up at wound center if she is discharged to home. Thank you. STEFANY HEATON Nov 29, 2016 17:59
[2016-11-29] MEDS: Azithromycin 500 MG in D5W 275 ML IV SCH (18:50)
[2016-11-29 20:00] VITALS: BP 106/73
[2016-11-29] MEDS: Vitamin A&D Oint 2oz Tube TOPIC SCH (21:33)
[2016-11-29] MEDS: cefTRIAXone 1 GM in D5W 55 ML IVPB SCH (21:33)
[2016-11-30] VITALS: BP 118/67
[2016-11-30] MEDS: DuoNeb 0.5-3(2.5)mg/3ml neb HHN SCH ×6 (02:05→23:00)
[2016-11-30 04:00] VITALS: BP 109/62
[2016-11-30] MEDS: NovoLOG Insulin Flexpen SUBQ SCH ×4 (06:18→21:41)
[2016-11-30 06:58] LABS: BASOPHILS % (AUTO) 0.9 % (0.0-2.0); LYMPHOCYTES % (AUTO) 17.1 % (20.0-45.0); MEAN CORPUSCULAR HEMOGLOBIN 23.8 PG (27.0-31.0); MEAN CORPUSCULAR HGB CONC 31.7 G/DL (32.0-36.0); MEAN CORPUSCULAR VOLUME 75 FL (80-99); MEAN PLATELET VOLUME 7.9 FL (6.5-10.1); MONOCYTES % (AUTO) 4.4 % (1.0-10.0); NEUTROPHILS % (AUTO) 77.6 % (45.0-75.0); PLATELET COUNT 292 K/UL (150-450); RED CELL DISTRIBUTION WIDTH 18.6 % (11.6-14.8); WHITE BLOOD COUNT 8.3 K/UL (4.8-10.8)
[2016-11-30 07:30] VITALS: BP 133/69
--- NOTE | 2016-11-30 08:13 | Cardiology Report ---
APPROVED REPORT EXAM: Two-dimensional and M-mode echocardiogram with Doppler and color Doppler. INDICATION Atherosclerosis M-Mode DIMENSIONS IVSd1.7 (0.7-1.1cm)Left Atrium (MM)5.2 (1.6-4.0cm) LVDd3.9 (3.5-5.6cm)Aortic Root2.8 (2.0-3.7cm) PWd0.9 (0.7-1.1cm)Aortic Cusp Exc.1.9 (1.5-2.0cm) LVDs2.9 (2.5-4.0cm) PWs1.0 cm Normal left ventricular chamber size, systolic function and wall motion. Left ventricular ejection fraction estimated to be 45%. There is basal to mid lateral wall and septal wall, mid inferior wall and posterior wall hypokinesia. Ischemic cardiomyopathy cannot be excluded. Mild left ventricular hypertrophy. No evidence of pericardial fat or effusion. Mild left atrial enlargement. Right cardiac chamber sizes are within normal limits. Mild focal aortic valve sclerosis with adequate cusp excursion. Mildly thickened mitral valve leaflets with normal excursion. Mild mitral annulus and aortic root calcification. Normal pulmonic valve structure. Normal tricuspid valve structure. IVC dilated at 2.2 cm with physiologic collapse. Pacemaker presented in right cardic chambers. A color flow and spectral Doppler study was performed and revealed: Mild aortic regurgitation. Mild mitral regurgitation. Mitral inflow indicat increased left atrial pressure, suggestive restrictive pattern (Grade III). Mild to moderate tricuspid regurgitation. Tricuspid systolic velocities suggests peak right ventricular systolic pressure of 74 mmHg, consistent with severe pulmonary hypertension. No pulmonic regurgitation present.
--- NOTE | 2016-11-30 08:55 | Pulmonology Progress Note ---
Assessment/Plan Assessment/Plan 1. Urinary tract infection. 2. Pneumonia. 3. History of cerebrovascular accident with right-sided weakness. 4. Dysphagia and dysarthria, suspect aspiration. 5. Hypertension. 6. Diabetes. 7. Dementia. 8. Congestive heart failure, EF 45%, LVH, systolic and diastolic 9. Severe pulmonary hypertension cont abx, O2 dc steroids lasix prob snf tomorrow Subjective Constitutional: Denies: fever Respiratory: Reports: productive cough, Denies: shortness of breath Allergies: Coded Allergies: No Known Allergies (Verified , 06/03/10) Objective Last 24 Hour Vital Signs Date Time Temp Pulse Resp B/P Pulse Ox O2 Delivery O2 Flow Rate FiO2 11/30/16 07:33 69 16 98 Room Air 11/30/16 07:33 98 Room Air 11/30/16 07:33 Room Air 11/30/16 07:30 97.7 76 16 133/69 94 Room Air 11/30/16 04:00 97.7 70 20 109/62 94 Room Air 11/30/16 02:07 69 16 98 Room Air 11/30/16 02:07 69 16 99 Room Air 21 11/30/16 00:00 97.7 64 20 118/67 99 Room Air 11/29/16 23:18 65 16 95 Room Air 11/29/16 23:18 66 16 99 Room Air 21 11/29/16 21:30 75 106/73 11/29/16 20:00 98.4 75 20 106/73 98 Room Air 11/29/16 19:33 71 16 99 Room Air 21 11/29/16 19:32 72 16 98 Room Air 11/29/16 19:31 Room Air 11/29/16 19:31 98 Room Air 21 11/29/16 15:41 98.1 66 19 126/68 100 Room Air 11/29/16 15:19 77 16 100 Room Air 11/29/16 11:52 97.2 65 19 123/73 99 Room Air 11/29/16 11:15 76 16 99 Room Air 21 11/29/16 11:07 76 16 100 Room Air 21 Intake and Output 11/29/16 11/30/16 19:00 07:00 Intake Total 480 ml 330 ml Balance 480 ml 330 ml Intake Oral 480 ml IV Total 330 ml # Voids 2 6 General Appearance: no acute distress Respiratory/Chest: rhonchi Cardiovascular: normal rate Abdomen: soft, non tender Laboratory Tests 11/30/16 05:40: White Blood Count 8.3, Red Blood Count 4.60, Hemoglobin 11.0L, Hematocrit 34.6L , Mean Corpuscular Volume 75L, Mean Corpuscular Hemoglobin 23.8L, Mean Corpuscular Hemoglobin Concent 31.7L, Red Cell Distribution Width 18.6H, Platelet Count 292, Mean Platelet Volume 7.9, Neutrophils (%) (Auto) 77.6H, Lymphocytes (%) (Auto) 17.1L, Monocytes (%) (Auto) 4.4, Eosinophils (%) (Auto) 0.0, Basophils (%) (Auto) 0.9 Current Medications Medications (Trade) Dose Ordered Sig/Sam Route PRN Reason Start Time Stop Time Status Last Admin Dose Admin Albuterol/ Ipratropium (DuoNeb 0.5-3(2.5)mg/3ml) 3 ml Q4HRT HHN 11/28/16 08:00 12/03/16 00:59 11/30/16 07:33 Amiodarone HCl (Cordarone) 200 mg DAILY ORAL 11/28/16 09:00 12/28/16 08:59 11/29/16 08:45 Aspirin (Ecotrin) 81 mg DAILY ORAL 11/28/16 09:00 12/28/16 08:59 11/29/16 08:45 Atorvastatin Calcium (Lipitor) 10 mg DAILY ORAL 11/28/16 09:00 12/28/16 08:59 11/29/16 08:45 Azithromycin 500 mg/Dextrose 275 ml @ 275 mls/hr Q24HRS IV 11/27/16 19:00 12/03/16 19:59 11/29/16 18:50 Carvedilol (Coreg) 12.5 mg EVERY 12 HOURS ORAL 11/28/16 09:00 12/28/16 08:59 11/29/16 21:30 Ceftriaxone Sodium/Dextrose (Rocephin/D5W) 55 ml @ 110 mls/hr Q24H IVPB 11/27/16 21:00 12/04/16 20:59 11/29/16 21:33 Dextrose (Dextrose 50%) STAT PRN IV Hypoglycemia 11/27/16 21:15 12/27/16 21:14 Insulin Aspart (NovoLOG) BEFORE MEALS AND HS SUBQ 11/28/16 06:30 12/28/16 06:29 11/29/16 21:41 Metformin HCl (Glucophage) 1,000 mg Q12HR ORAL 11/28/16 09:00 12/28/16 08:59 11/29/16 08:45 Methylprednisolone Sodium Succinate (Solu-MEDROL) 40 mg DAILY IVP 11/29/16 09:00 12/29/16 08:59 11/29/16 09:37 Vitamin A/Vitamin D (A & D Oint) 1 applic EVERY 12 HOURS TOPIC 11/29/16 21:00 12/29/16 20:59 11/29/16 21:33 EDWARDO HOOKS Nov 30, 2016 08:55
[2016-11-30 09:47] LABS: REFLEX LACTIC ACID YES OR NO YES
[2016-11-30] MEDS: Amiodarone 200mg tab ORAL SCH (10:14)
[2016-11-30] MEDS: Carvedilol 12.5mg tab ORAL SCH ×2 (10:14→21:00)
[2016-11-30] MEDS: Aspirin EC 81mg tab ORAL SCH (10:14)
[2016-11-30] MEDS: Azithromycin 250mg tab ORAL SCH (10:15)
[2016-11-30] MEDS: metFORMIN 500mg tab ORAL SCH ×2 (10:15→21:36)
[2016-11-30] MEDS: Vitamin A&D Oint 2oz Tube TOPIC SCH ×2 (10:17→21:36)
--- NOTE | 2016-11-30 11:08 | Diagnostic Imaging Report ---
Indication: COPD shortness of breath Technique: One view of the chest Comparison: 11/28/2016 Findings: Left chest AICD remains. Persistent elevation left hemidiaphragm. Granulomatous calcifications in the left pulmonary hilum persist. Diffuse bilateral interstitial disease is unchanged. Right paratracheal opacity persists. Impression: Unchanged, over one day, findings as above.
[2016-11-30 11:34] VITALS: BP 131/77
[2016-11-30 15:40] VITALS: BP 102/55
--- NOTE | 2016-11-30 18:24 | Cardiology Report ---
APPROVED REPORT EKG Measurement Heart [id number] Normal sinus rhythm Right bundle branch block Abnormal ECG
[2016-11-30 20:00] VITALS: BP 103/63
[2016-11-30] MEDS: cefTRIAXone 1 GM in D5W 55 ML IVPB SCH (21:37)
[2016-12-01] VITALS: BP 102/74
[2016-12-01] MEDS: DuoNeb 0.5-3(2.5)mg/3ml neb HHN SCH ×2 (03:19→08:09)
[2016-12-01 04:00] VITALS: BP 102/67
[2016-12-01] MEDS: NovoLOG Insulin Flexpen SUBQ SCH (06:30)
[2016-12-01 06:39] LABS: BASOPHILS % (AUTO) 1.3 % (0.0-2.0); EOSINOPHILS % (AUTO) 0.7 % (0.0-3.0); LYMPHOCYTES % (AUTO) 19.9 % (20.0-45.0); MEAN CORPUSCULAR HGB CONC 31.9 G/DL (32.0-36.0); MEAN CORPUSCULAR VOLUME 75 FL (80-99); MONOCYTES % (AUTO) 5.3 % (1.0-10.0); NEUTROPHILS % (AUTO) 72.8 % (45.0-75.0); PLATELET COUNT 240 K/UL (150-450); RED BLOOD COUNT 4.16 M/UL (4.20-5.40); RED CELL DISTRIBUTION WIDTH 17.2 % (11.6-14.8)
[2016-12-01 06:47] LABS: ANION GAP 13 (5-15); CARBON DIOXIDE 25 mEQ/L (20-30); CHLORIDE 98 mEQ/L (98-107); CREATININE 0.8 mg/dL (0.5-0.9); HEMOLYSIS 1; POTASSIUM 3.6 mEQ/L (3.4-4.9); SODIUM 136 mEQ/L (135-145)
[2016-12-01] MEDS ORDERED: JANUVIA25 MG ORAL (07:48)
[2016-12-01] MEDS ORDERED: LASIX20 M1 ORAL (07:48)
[2016-12-01] MEDS ORDERED: DUONEB 0.5-3(2.53 ML HHN (07:48)
[2016-12-01] MEDS ORDERED: ZITHROMAX250 MG ORAL (07:48)
[2016-12-01 08:00] VITALS: BP 101/36
[2016-12-01 09:00] VITALS: BP 101/50
[2016-12-01] MEDS: metFORMIN 500mg tab ORAL SCH (09:00)
[2016-12-01] MEDS: Carvedilol 12.5mg tab ORAL SCH (09:00)
[2016-12-01] MEDS: Azithromycin 250mg tab ORAL SCH (09:03)
[2016-12-01] MEDS: Vitamin A&D Oint 2oz Tube TOPIC SCH (09:03)
[2016-12-01] MEDS: Amiodarone 200mg tab ORAL SCH (09:03)
[2016-12-01] MEDS: Aspirin EC 81mg tab ORAL SCH (09:03)
--- NOTE | 2016-12-01 10:55 | Diagnostic Imaging Report ---
Indication: SOB Technique: One view of the chest Comparison: 11/29/2016 Findings: Granulomatous ossifications are seen in the left aorta pulmonary window and in the left upper lobe. There is persistent marked elevation of left hemidiaphragm with basilar atelectatic change. Lungs and pleural spaces are otherwise grossly clear. Left chest AICD remains. Contrast is seen this in the colon, probably related to earlier video swallowing study Impression: New finding of colon contrast. Otherwise unchanged, over one day, findings as above.
--- NOTE | 2016-12-02 09:20 | Discharge Summary ---
Discharge Summary Hospital Course Date of Admission Nov 26, 2016 at 16:40 Date of Discharge Dec 01, 2016 at 11:30 Admitting Diagnosis copd exacebration HPI Liya Zuluaga is a 81 year old female who was admitted on Nov 26, 2016 at 16:40 for Chronic Obstructive Pulmonary Disease Exacerbation Hospital Course [id number] Discharge Discharge Disposition Patient was discharged to SNF/Subacute Facility(03) Discharge Diagnoses: Jaylin Mann NP Dec 02, 2016 09:20
--- NOTE | 2016-12-02 16:12 | Diagnostic Imaging Report ---
Indications: Dysphagia Technique: Multiphasic barium dysphagia study was performed under fluoroscopic control with Elsa Lau speech pathologist. Cinegraphic images were obtained. Total fluoroscopy time: 318.4 sec Dose-area product: 0.31 mGy-m2 Findings: Comparison: None Oral and pharyngeal phases of swallowing demonstrate multiple mechanical abnormalities, as enumerated on speech pathology evaluation form. The patient demonstrates superficial laryngeal penetration of thin and nectar thickness barium without aspiration, ejected. There is moderate barium coating of pharyngeal structures after swallowing.. Esophageal phase of swallowing demonstrates no barium pooling. IMPRESSION: Abnormal oropharyngeal mechanics with laryngeal penetration of thin and nectar thickness barium, no aspiration Moderate post swallow pharyngeal residue No obvious esophageal dysmotility. Recommendation per speech pathology evaluation form.
--- NOTE | 2016-12-02 22:15 | Discharge Summary 2 SIG ---
DATE OF ADMISSION: 11/26/2016 DATE OF DISCHARGE: 12/01/2016 CONSULTANTS: Antwan Goode M.D. HOSPITAL COURSE: The patient is an 81-year-old female, with cough, wheezing, and congestion that has been progressively worsen over the past week. She presented to ED. On evaluation, was wheezing and had congestion. White count was normal, however, lactate was elevated. Chest x-ray showed left lower lobe infiltrate and chronic obstructive pulmonary disease. She was admitted to medical floor. Urinalysis showed infection. She was admitted to medical floor and was given nebulizer treatments and was started on steroid. Echocardiogram done showed normal left ventricular size, function, and wall motion. Estimated ejection fraction of 45% and severe pulmonary hypertension. She was started on IV ceftriaxone. Urine culture showed growth of Klebsiella. She underwent video fluoroscopic swallow evaluation and showed risk for chronic aspiration secondary to poor pharyngeal sensation. She was recommended pureed with nectar thick liquids and strict aspiration precaution. She was also evaluated by Dr. Goode. The patient was being seen at the wound center for her stage III pressure ulcer at the coccyx. Wound care was done. No surgical intervention needed. Steroids was discontinued. She underwent physical therapy evaluation. She was eventually discharged to a SNF. DISCHARGE DISPOSITION: The patient was discharged to SNF to continue Zithromax for six more days. Continue furosemide, Januvia, and DuoNeb. FINAL DIAGNOSES: 1. Urinary tract infection with Klebsiella. 2. Pneumonia. 3. 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 4. Dysphagia and dysarthria, suspect aspiration. 5. Hypertension. 6. Diabetes mellitus type 2. 7. Dementia. 8. Acute on chronic diastolic and systolic heart failure. 9. Severe pulmonary hypertension. 10. Stage III pressure ulcer on coccyx present on admission. Oswald Estrella M.D. I have been assigned to dictate discharge summary on this account and I was not involved in the patient's management. Jaylin Mann N.P. DR: LATIA JOB#: [id number] CC: ILANA
== END 2016-12-01 11:30 | DRG 193 ==
LOC: EMR 16:30 → 4E 16:40 → EDBEDREQ 17:23
DX: J18.9 Pneumonia, unspecified organism (principal); L89.153 Pressure ulcer of sacral region, stage 3; I50.43 Acute on chronic combined systolic (congestive) and diastolic (congestive) heart failure; R13.10 Dysphagia, unspecified; F03.90 Unspecified dementia, unspecified severity, without behavioral disturbance, psychotic disturbance, mood disturbance, and anxiety; I69.351 Hemiplegia and hemiparesis following cerebral infarction affecting right dominant side; I27.2 Other secondary pulmonary hypertension; N39.0 Urinary tract infection, site not specified; I10 Essential (primary) hypertension; J45.909 Unspecified asthma, uncomplicated; Z95.0 Presence of cardiac pacemaker; E11.9 Type 2 diabetes mellitus without complications; R47.1 Dysarthria and anarthria; B96.1 Klebsiella pneumoniae [K. pneumoniae] as the cause of diseases classified elsewhere; Z87.891 Personal history of nicotine dependence; J44.9 Chronic obstructive pulmonary disease, unspecified
CPT/HCPCS: 36415; 71010; 74230; 80048; 80053; 80076; 81003; 82962; 83605; 83690; 83880; 84484; 85007; 85025; 85610; 85730; 87040; 87086; 87181; 93005; 93306; 94640; 94664; 94760; J1815; J7620

== ENCOUNTER 2016-12-29 13:10 | Outpatient (RCR) | payer MEDICARE, OTHER ==
[~2016-12-29] VITALS: Ht 162.6 cm; Wt 52.6 kg
[~2016-12-29 13:10] MED LIST changes: +DUONEB 0.5-3(2.53 ML HHN; +JANUVIA25 MG ORAL; +LASIX20 M1 ORAL; +MULTIVITAMINS1 EAC2 ORAL; +ZITHROMAX250 MG ORAL
[2016-12-31] MEDS ORDERED: Lidocaine HCl 2% Jelly 5ml Tube TOPIC ONE (09:45)
== END 2017-01-17 | disposition home or self-care (01) ==
LOC: WCC 13:10
DX: L89.153 Pressure ulcer of sacral region, stage 3 (principal); G81.00 Flaccid hemiplegia affecting unspecified side
CPT/HCPCS: 11043; G0463

== ENCOUNTER 2017-02-14 15:36 | Inpatient (IN) | payer MEDICARE, OTHER ==
[~2017-02-14] VITALS: Ht 157.5 cm; Wt 45.4 kg
--- NOTE | 2017-02-14 16:18 | Emergency Room Report ---
History of Present Illness General Chief Complaint: Diarrhea Present Illness HPI 81-year-old female presents to the emergency department brought by daughter for profuse watery diarrhea times one week denies abdominal pain denies nausea or vomiting denies fevers or chills. Daughter states that mother was recently treated with antibiotics for pneumonia was hospitalized in addition to senior care care facility. Reports recent travel to [place] but did not get off the boat. Denies ill contacts. She has cardiac history, history of diabetes and history of defibrillator placement. Denies CP, Palpitations, LOC, AMS, dizziness , Changes in Vision, Sensation, paresthesias, or a sudden severe headache. Allergies: Coded Allergies: No Known Allergies (Verified , 06/03/10) Patient History Past Medical History: see triage record Past Surgical History: none Pertinent Family History: none Now: No Reviewed Nursing Documentation: PMH: Agreed, PSxH: Agreed Nursing Documentation-PMH Hx Cardiac Problems: Yes - Cardiac arrest Hx Hypertension: Yes Hx Pacemaker: No - Defubrillator Hx Asthma: Yes Hx COPD: No Hx Diabetes: Yes Hx Cancer: No Hx Gastrointestinal Problems: Yes - gallstones Hx Dialysis: No Hx Neurological Problems: Yes Hx Cerebrovascular Accident: Yes Hx Dementia: Yes Hx Seizures: No Hx Peripheral Neuropathy: Yes Hx Concentration Difficulty: Yes Hx Speech Problem: Yes - garbled Hx Weakness: Yes Review of Systems All Other Systems: negative except mentioned in HPI Physical Exam Vital Signs Date Time Temp Pulse Resp B/P (MAP) Pulse Ox O2 Delivery O2 Flow Rate FiO2 02/14/17 15:38 97.3 70 18 95/51 99 Room Air Sp02 EP Interpretation: reviewed, normal General Appearance: no apparent distress, alert, GCS 15, non-toxic, thin Head: normocephalic, atraumatic Eyes: bilateral eye normal inspection, bilateral eye PERRL ENT: hearing grossly normal, normal voice Neck: full range of motion Respiratory: lungs clear, normal breath sounds, speaking full sentences Cardiovascular #1: regular rate, rhythm, no edema Gastrointestinal: normal bowel sounds - hyperactive bowelsounds in all 4 quadrants, non tender, soft, non-distended, no guarding, no rebound Rectal: deferred Genitourinary: normal inspection Musculoskeletal: back normal, gait/station normal, normal range of motion, non- tender Neurologic: alert, oriented x3, responsive, motor strength/tone normal, sensory intact, speech normal Psychiatric: judgement/insight normal, memory normal, mood/affect normal Skin: normal color, no rash, warm/dry, other - delayed skin turgor response Medical Decision Making PA Attestation Dr. Ahmadi is my supervising Physician whom patient management has been discussed with. Diagnostic Impression: Primary Impression: Dehydration Additional Impressions: Hypokalemia, gastrointestinal losses Yeast UTI ER Course 81-year-old female presents to the emergency department brought by daughter for profuse watery diarrhea times one week denies abdominal pain denies nausea or vomiting denies fevers or chills. Daughter states that mother was recently treated with antibiotics for pneumonia was hospitalized in addition to senior care care facility. Reports recent travel to [place] but did not get off the boat. denies blood in the stool or dark tarry stools. Denies ill contacts. She has cardiac history, history of diabetes and history of defibrillator placement. Denies CP, Palpitations, LOC, AMS, dizziness, Changes in Vision, Sensation, paresthesias, or a sudden severe headache. Ddx considered but are not limited to GE, colitis, C.Diff, Gi bleed just to name a few. Vital signs: pt. is afebrile, BP is Low however has hx of diastolic HF, non tachycardic. NAD. H&PE are most consistent with Dehydration and possible C.diff or infectious diarrhea. ORDERS: -CBC: unremarkable -CMP: elevated Cr 1.3, Hypokalemia potassium is 2.7 -Lactic Acid: elevated 5.7 -Blood Cultures: Pending -C-Diff Toxin: Pending -UA : few yeast - CT Abdomen and Pelvis with Contrast: diverticulosis, bibasilar pulmonary atelectasis, left lower lobe infiltrate, cholecystolithiasis, no hydronephrosis , 2.2 cm right adrenal mass which is of indeterminate etiology. no evidence of bowel obstruction or pneumoperitoneum. mild apparent rectal wall thickening which may due to incomplete distention or possible proctitis. --PER OFFICIAL RADIOLOGY REPORT> ED INTERVENTIONS: -1000cc NS Bolus -40Meq KCl- for low potassium DISPOSITION: at this time pt. will be admitted to Dr. Estrella for Dehydration and hypokalemia. Dr. Estrella agreed to admit the pt. and to continue pt. care management. Labs Test 02/14/17 16:10 02/14/17 17:30 White Blood Count 5.6 K/UL (4.8-10.8) Red Blood Count 4.23 M/UL (4.20-5.40) Hemoglobin 10.3 G/DL (12.0-16.0) Hematocrit 34.4 % (37.0-47.0) Mean Corpuscular Volume 81 FL (80-99) Mean Corpuscular Hemoglobin 24.4 PG (27.0-31.0) Mean Corpuscular Hemoglobin Concent 30.1 G/DL (32.0-36.0) Red Cell Distribution Width 15.1 % (11.6-14.8) Platelet Count 145 K/UL (150-450) Mean Platelet Volume 6.8 FL (6.5-10.1) Neutrophils (%) (Auto) 69.1 % (45.0-75.0) Lymphocytes (%) (Auto) 24.0 % (20.0-45.0) Monocytes (%) (Auto) 5.3 % (1.0-10.0) Eosinophils (%) (Auto) 0.6 % (0.0-3.0) Basophils (%) (Auto) 0.9 % (0.0-2.0) Urine Color Pale yellow Urine Appearance Clear Urine pH 5 (4.5-8.0) Urine Specific [place] 1.010 (1.005-1.035) Urine Protein Negative (NEGATIVE) Urine Glucose (UA) Negative (NEGATIVE) Urine Ketones Negative (NEGATIVE) Urine Occult Blood Negative (NEGATIVE) Urine Nitrite Negative (NEGATIVE) Urine Bilirubin Negative (NEGATIVE) Urine Urobilinogen Normal MG/DL (0.0-1.0) Urine Leukocyte Esterase 1+ (NEGATIVE) Urine RBC 0-2 /HPF (0 - 2) Urine WBC 2-4 /HPF (0 - 2) Urine Squamous Epithelial Cells Few /LPF (NONE/OCC) Urine Amorphous Sediment Few /LPF (NONE) Urine Bacteria Few /HPF (NONE) Urine Yeast Few /HPF (NONE) Sodium Level 149 mEQ/L (135-145) Potassium Level 2.5 mEQ/L (3.4-4.9) Chloride Level 110 mEQ/L (98-107) Carbon Dioxide Level 19 mEQ/L (20-30) Anion Gap 20 (5-15) Blood Urea Nitrogen 22 mg/dL (7-23) Creatinine 1.3 mg/dL (0.5-0.9) Estimat Glomerular Filtration Rate mL/min (>60) Glucose Level 127 mg/dL (74-106) Calcium Level 8.6 mg/dL (8.6-10.2) Total Bilirubin 0.2 mg/dL (0.0-1.2) Aspartate Amino Transf (AST/SGOT) 16 U/L (5-40) Alanine Aminotransferase (ALT/SGPT) 14 U/L (3-33) Alkaline Phosphatase 63 U/L (35-104) Total Protein 6.1 g/dL (6.6-8.7) Albumin 3.3 g/dL (3.5-5.2) Globulin 2.8 g/dL Albumin/Globulin Ratio 1.1 (1.0-2.7) Lipase 26 U/L (< 60) Lactic Acid Level 4.80 mmol/L (0.66-2.22) Last Vital Signs Date Time Temp Pulse Resp B/P (MAP) Pulse Ox O2 Delivery O2 Flow Rate FiO2 02/14/17 15:38 97.3 70 18 95/51 99 Room Air Disposition: ADMITTED INPATIENT Condition: Serious Beti Solorzano Feb 14, 2017 16:18
[2017-02-14 16:24] VITALS: BP 95/51
[2017-02-14 16:28] LABS: APPEARANCE,URINE CLEAR; KETONES,URINE NEGATIVE (NEGATIVE); LEUKOCYTE ESTERASE ,URINE 1+ (NEGATIVE); NITRITE,URINE NEGATIVE (NEGATIVE); PH,URINE 5 (4.5-8.0); PROTEIN,URINE NEGATIVE (NEGATIVE); UROBILINOGEN,URINE NORMAL MG/DL (0.0-1.0)
[2017-02-14 16:31] LABS: BASOPHILS % (AUTO) 0.9 % (0.0-2.0); EOSINOPHILS % (AUTO) 0.6 % (0.0-3.0); MEAN CORPUSCULAR HEMOGLOBIN 24.4 PG (27.0-31.0); MEAN CORPUSCULAR HGB CONC 30.1 G/DL (32.0-36.0); MEAN CORPUSCULAR VOLUME 81 FL (80-99); MEAN PLATELET VOLUME 6.8 FL (6.5-10.1); MONOCYTES % (AUTO) 5.3 % (1.0-10.0); NEUTROPHILS % (AUTO) 69.1 % (45.0-75.0); PLATELET COUNT 145 K/UL (150-450); RED BLOOD COUNT 4.23 M/UL (4.20-5.40); RED CELL DISTRIBUTION WIDTH 15.1 % (11.6-14.8); WHITE BLOOD COUNT 5.6 K/UL (4.8-10.8)
[2017-02-14 16:40] LABS: ALANINE AMINOTRANSFERASE 14 U/L (3-33); ALBUMIN/GLOBULIN RATIO 1.1 (1.0-2.7); ASPARTATE AMINO TRANSFERASE 16 U/L (5-40); CALCIUM 8.6 mg/dL (8.6-10.2); CARBON DIOXIDE 19 mEQ/L (20-30); CHLORIDE 110 mEQ/L (98-107); CREATININE 1.3 mg/dL (0.5-0.9); HEMOLYSIS 8; LIPASE 26 U/L (< 60); SODIUM 149 mEQ/L (135-145); TOTAL PROTEIN 6.1 g/dL (6.6-8.7)
[2017-02-14 16:41] VITALS: BP 95/46
[2017-02-14 16:45] LABS: ANION GAP 20 (5-15)
[2017-02-14 17:03] LABS: REFLEX LACTIC ACID YES OR NO YES
[2017-02-14 17:06] LABS: AMORPHOUS SEDIMENT,UR FEW /LPF; BACTERIA,URINE FEW /HPF; RBC,URINE 0-2 /HPF (0 - 2); SQUAMOUS EPITHELIAL CELL,UR FEW /LPF (NONE/OCC); YEAST,URINE FEW /HPF
[2017-02-14 17:11] LABS: POTASSIUM 2.5 mEQ/L (3.4-4.9)
[2017-02-14] MEDS ORDERED: KCl 10% 40mEq/30ml liquid ORAL ONE (17:15)
[2017-02-14 17:30] VITALS: BP 104/61
[2017-02-14 18:27] VITALS: BP 103/56
[2017-02-14] MEDS: D5NS 1,000 ML IV SCH (18:27)
[2017-02-14 20:00] VITALS: BP 105/59
[2017-02-14] MEDS ORDERED: metroNIDAZOLE 500mg 100 ML IVPB SCH (22:00)
[2017-02-14] MEDS: metroNIDAZOLE 500mg 100 ML IVPB SCH (22:05)
[2017-02-14] MEDS: NovoLOG Insulin Flexpen SUBQ SCH (22:29)
[2017-02-15] MEDS: D5NS 1,000 ML IV SCH (03:43)
[2017-02-15 04:00] VITALS: BP 109/60
[2017-02-15] MEDS: metroNIDAZOLE 500mg 100 ML IVPB SCH ×3 (05:35→23:59)
[2017-02-15] MEDS: NovoLOG Insulin Flexpen SUBQ SCH ×4 (05:37→21:42)
[2017-02-15] MEDS ORDERED: sitaGLIPtin 50mg tab ORAL SCH (06:30)
[2017-02-15 08:39] VITALS: BP 103/62
[2017-02-15] MEDS ORDERED: Amiodarone 200mg tab ORAL SCH (09:00)
[2017-02-15] MEDS: sitaGLIPtin 50mg tab ORAL SCH (09:05)
[2017-02-15] MEDS: Amiodarone 200mg tab ORAL SCH (09:05)
--- NOTE | 2017-02-15 09:25 | Diagnostic Imaging Report ---
Indication: Abdominal pain Technique: Continuous helical transaxial imaging of the abdomen and pelvis was obtained from the lung bases to the pubic symphysis during intravenous contrast administration. Coronal 2-D reformats were also obtained. Study obtained in a Siemens sensation [address] Total Dose length Product (DLP): [address] Dose Index Volume (CTDIvol): 14.12, 0.15 mGy Comparison: None Findings: Patchy basilar reticular densities are present. Some ground glass aspiration also noted. The heart is enlarged. Aorta is calcified. Pacemaker noted. Trace pericardial fluid is present. Gallstone noted. Suspected cyst in the lower pole the left kidney. No bowel obstruction or evidence of free fluid or free air. Diverticula noted in the colon. Calcified uterine fibroids are present. Bladder is mildly distended. Bones are osteopenic. There is loss of subcutaneous fatty tissue on the right side [place] to the right hip with some subcutaneous reticulation. Findings probably represent some degree of decubitus pressure injury. Please correlate clinically. Impression: Cholelithiasis. Basilar reticular densities likely atelectasis. Cardiomegaly and atherosclerotic disease. Trace pericardial effusion Suspected left renal cyst Osteoporosis Calcified uterine fibroids Extensive diverticulosis of the colon. Decubitus changes in the right side. The CT scanner at [facility] is accredited by the [employer] and the scans are performed using dose optimization techniques as appropriate to a performed exam including Automatic Exposure control.
--- NOTE | 2017-02-15 09:44 | History & Physical ---
History and Physical History & Physicial History & Physicial DATE OF ADMISSION: 02/14/2017 HISTORY OF PRESENT ILLNESS: This elderly woman was admitted from home due to weakness and diarrhea. She had a normal WBC but low K (I was not informed) and elevated lactate. Admission was arranged. PAST MEDICAL HISTORY: Cardiac arrest in April 2012 with placement of a defibrillator and pacemaker. 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 Admitted for pneumonia recently. She has dysphagia. ALLERGIES: NESHA INHIBITOR CAUSES COUGH. VACCINES. SHE HAD PNEUMOCOCCAL VACCINE IN 2008 AND FLU VACCINE ANNUALLY. MEDICATIONS: Reviewed and reconciled. PAST SURGICAL HISTORY: Pacemaker, defibrillator and cholecystectomy. SOCIAL HISTORY: She lives at home with the daughter. She does not smoke. She has a high school education and is retired. REVIEW OF SYSTEMS: Cannot be obtained. The patient is aphasic. PHYSICAL EXAMINATION: GENERAL: The patient is alert and responsive. VITAL SIGNS: The vital signs are stable. There is no high fever. HEENT: The head is normocephalic. NECK: No jugular vein distention or lymphadenopathy. CHEST: Clear. CARDIAC: Rhythm is regular. ABDOMEN: Soft and nontender. Liver and spleen are not enlarged. EXTREMITIES: No clubbing, cyanosis, or edema. CHEST: An implanted defibrillator is noted in the left anterior axillary region. LABORATORY DATA: Reviewed. K 2.7 CT w sigmoid inflammation IMPRESSIONS: 1. Diarrhea w severe hypokalemia 2. Hypertensive heart disease with chronic systolic and diastolic heart failure. 3. Hyperlipidemia 4. History of stroke with right hemiparesis and aphasia. 5. Diabetes. PLAN: The patient will be admitted to inpatient. She will be given Flagyl and IVF. We await the results of c diff toxin. EDWARDO HOOKS Feb 15, 2017 09:44
[2017-02-15 11:31] LABS: MEAN CORPUSCULAR HEMOGLOBIN 24.1 PG (27.0-31.0); MEAN CORPUSCULAR HGB CONC 29.7 G/DL (32.0-36.0); MEAN CORPUSCULAR VOLUME 81 FL (80-99); PLATELET COUNT 89 K/UL (150-450); RED BLOOD COUNT 4.92 M/UL (4.20-5.40); RED CELL DISTRIBUTION WIDTH 15.3 % (11.6-14.8); WHITE BLOOD COUNT 6.6 K/UL (4.8-10.8)
[2017-02-15 11:50] LABS: ALANINE AMINOTRANSFERASE 16 U/L (3-33); ALBUMIN/GLOBULIN RATIO 1.2 (1.0-2.7); ANION GAP 17 (5-15); ASPARTATE AMINO TRANSFERASE 19 U/L (5-40); CALCIUM 8.9 mg/dL (8.6-10.2); CARBON DIOXIDE 22 mEQ/L (20-30); CHLORIDE 111 mEQ/L (98-107); CREATININE 0.9 mg/dL (0.5-0.9); HEMOLYSIS 18; POTASSIUM 2.8 mEQ/L (3.4-4.9); SODIUM 150 mEQ/L (135-145); TOTAL PROTEIN 6.6 g/dL (6.6-8.7)
[2017-02-15 11:56] LABS: BAND NEUTROPHILS % (MANUAL) 3 % (0-8); BASOPHILS % (MANUAL) 0 % (0-2); EOSINOPHILS % (MANUAL) 0 % (0-3); LYMPHOCYTES % (MANUAL) 16 % (20-45); NEUTROPHILS % (MANUAL) 74 % (45-75); PLATELET ESTIMATE DECREASED; TOTAL CELLS COUNTED 100
[2017-02-15 11:57] LABS: ANISOCYTOSIS 1+; HYPOCHROMASIA 2+; PLATELET MORPHOLOGY NORMAL
[2017-02-15 12:59] VITALS: BP 109/54
[2017-02-15 16:51] VITALS: BP 116/64
[2017-02-15 20:00] VITALS: BP 117/75
[2017-02-16 00:05] VITALS: BP 117/51
[2017-02-16 04:00] VITALS: BP 114/62
[2017-02-16] MEDS: metroNIDAZOLE 500mg 100 ML IVPB SCH ×3 (05:40→21:21)
[2017-02-16] MEDS: sitaGLIPtin 50mg tab ORAL SCH (05:59)
[2017-02-16] MEDS: NovoLOG Insulin Flexpen SUBQ SCH ×4 (05:59→21:21)
[2017-02-16 07:04] LABS: EOSINOPHILS % (AUTO) 0.9 % (0.0-3.0); LYMPHOCYTES % (AUTO) 33.3 % (20.0-45.0); MEAN CORPUSCULAR HEMOGLOBIN 24.9 PG (27.0-31.0); MEAN CORPUSCULAR VOLUME 80 FL (80-99); MEAN PLATELET VOLUME 8.7 FL (6.5-10.1); NEUTROPHILS % (AUTO) 58.8 % (45.0-75.0); PLATELET COUNT 157 K/UL (150-450); RED BLOOD COUNT 4.43 M/UL (4.20-5.40); RED CELL DISTRIBUTION WIDTH 15.7 % (11.6-14.8); WHITE BLOOD COUNT 6.8 K/UL (4.8-10.8)
[2017-02-16 07:16] LABS: ANION GAP 16 (5-15); CALCIUM 8.6 mg/dL (8.6-10.2); CARBON DIOXIDE 21 mEQ/L (20-30); CHLORIDE 110 mEQ/L (98-107); CREATININE 0.8 mg/dL (0.5-0.9); HEMOLYSIS 13; POTASSIUM 3.2 mEQ/L (3.4-4.9); SODIUM 147 mEQ/L (135-145)
[2017-02-16 07:58] VITALS: BP 115/56
[2017-02-16] MEDS: Amiodarone 200mg tab ORAL SCH (09:12)
[2017-02-16] MEDS: 1/2NS w/KCl 20mEq 1000ml 1,000 ML IV SCH ×2 (09:16→21:21)
[2017-02-16 12:00] VITALS: BP 117/55
[2017-02-16 16:03] VITALS: BP 113/66
[2017-02-16] MEDS ORDERED: Tubing IV Secondary IV ONE (16:59)
[2017-02-16] MEDS ORDERED: Sodium Chloride 10ml vial INJ ONE (16:59)
[2017-02-16 20:00] VITALS: BP 112/66
[2017-02-16] MEDS: DuoNeb 0.5-3(2.5)mg/3ml neb HHN SCH ×2 (20:00→23:38)
[2017-02-17] VITALS: BP 116/68
[2017-02-17] MEDS: DuoNeb 0.5-3(2.5)mg/3ml neb HHN SCH ×6 (03:44→23:51)
[2017-02-17 05:03] VITALS: BP 110/65
[2017-02-17] MEDS: 1/2NS w/KCl 20mEq 1000ml 1,000 ML IV SCH (06:03)
[2017-02-17] MEDS: metroNIDAZOLE 500mg 100 ML IVPB SCH ×2 (06:03→14:06)
[2017-02-17] MEDS: NovoLOG Insulin Flexpen SUBQ SCH ×4 (06:03→21:52)
[2017-02-17] MEDS: sitaGLIPtin 50mg tab ORAL SCH (06:03)
[2017-02-17 06:30] LABS: EOSINOPHILS % (AUTO) 1.2 % (0.0-3.0); LYMPHOCYTES % (AUTO) 28.9 % (20.0-45.0); MEAN CORPUSCULAR HEMOGLOBIN 24.7 PG (27.0-31.0); MEAN CORPUSCULAR VOLUME 80 FL (80-99); MONOCYTES % (AUTO) 5.4 % (1.0-10.0); NEUTROPHILS % (AUTO) 63.5 % (45.0-75.0); PLATELET COUNT 146 K/UL (150-450); RED CELL DISTRIBUTION WIDTH 15.3 % (11.6-14.8); WHITE BLOOD COUNT 6.1 K/UL (4.8-10.8)
[2017-02-17 06:45] LABS: ANION GAP 12 (5-15); CALCIUM 8.1 mg/dL (8.6-10.2); CARBON DIOXIDE 18 mEQ/L (20-30); CHLORIDE 112 mEQ/L (98-107); CREATININE 0.7 mg/dL (0.5-0.9); HEMOLYSIS 0; SODIUM 142 mEQ/L (135-145)
[2017-02-17 08:00] VITALS: BP 101/54
--- NOTE | 2017-02-17 08:29 | Wound Care Consultation ---
Wound Assessment Wound Assessment #1: Wound Number: 1 Wound Present on Admission: Yes New Wound: No Status Change of Wound: No Wound Location Body Site Modif: right, medial Wound Location Body Site: malleolus/ankle Wound Type: scab Bryce Test: Does not Bryce Wound Thickness: Full Thickness Wound Length: 1.0 Wound Width: 1.0 Wound Depth: utd Percent of Wound Vanduser/Red: 20 Percent of Wound Bed Yellow/Wh: 80 - dry scab Wound Drainage Amount: None Wound Drainage Odor: None/Absent Tissue Surrounding Wound: Intact Wound General Appearance: Clean/Dry Wound Assessment #2: Wound Number: 2 Wound Present on Admission: Yes New Wound: No Status Change of Wound: No Wound Location Body Site Modif: mid Wound Location Body Site: sacral Wound Type: scar Bryce Test: Does not Bryce Wound Thickness: Full Thickness Wound Length: 3.0 Wound Width: 3.0 Wound Depth: utd Percent of Wound Vanduser/Red: 100 Other Colors Identified: noted hyperpigmentation color surrounding scar tissue brown/gomez color Wound Drainage Amount: None Wound Drainage Odor: None/Absent Tissue Surrounding Wound: Intact Wound Assessment #3: Wound Number: 3 Wound Present on Admission: Yes New Wound: No Status Change of Wound: No Wound Location Body Site Modif: left Wound Location Body Site: sacral Wound Type: scar Bryce Test: Does not Bryce Wound Thickness: Full Thickness Wound Length: 3.0 Wound Width: 3.0 Wound Depth: utd Percent of Wound Vanduser/Red: 100 Wound Drainage Amount: None Wound Drainage Odor: None/Absent Tissue Surrounding Wound: Intact Wound Assessment #4: Wound Number: 4 Wound Present on Admission: Yes New Wound: No Status Change of Wound: No Wound Location Body Site Modif: right Wound Location Body Site: sacral Wound Type: scar Bryce Test: Does not Bryce Wound Thickness: Full Thickness Wound Length: 3.0 Wound Width: 3.0 Wound Depth: utd Percent of Wound Vanduser/Red: 100 Wound Drainage Amount: None Wound Drainage Odor: None/Absent Tissue Surrounding Wound: Intact Wound Assessment #5: Wound Number: 5 Wound Present on Admission: Yes New Wound: No Status Change of Wound: No Wound Location Body Site Modif: right Wound Location Body Site: ischial tuberosity Wound Type: scar Bryce Test: Does not Bryce Wound Thickness: Full Thickness Wound Length: 3.0 Wound Width: 3.0 Wound Depth: utd Percent of Wound Vanduser/Red: 100 Wound Drainage Amount: None Wound Drainage Odor: None/Absent Tissue Surrounding Wound: Intact Wound Assessment #6: Wound Number: 6 Wound Present on Admission: Yes New Wound: No Status Change of Wound: No Wound Location Body Site Modif: left Wound Location Body Site: ischial tuberosity Wound Type: scar Bryce Test: Does not Bryce Wound Thickness: Full Thickness Wound Length: 3.0 Wound Width: 3.0 Wound Depth: utd Percent of Wound Vanduser/Red: 100 Wound Drainage Amount: None Wound Drainage Odor: None/Absent Tissue Surrounding Wound: Intact Wound Assessment #7: Wound Number: 7 Wound Present on Admission: Yes New Wound: No Status Change of Wound: No Wound Location Body Site Modif: left Wound Location Body Site: toe - 2nd toe Wound Type: other - callous Bryce Test: Does not Bryce Wound Length: 1.0 Wound Width: 1.0 Wound Depth: utd Percent of Wound Black/Brown: 100 - dry callus Wound Drainage Amount: None Wound Drainage Odor: None/Absent Tissue Surrounding Wound: Intact Wound General Appearance: Asymptomatic Wound Assessment #8: Wound Number: 8 Wound Present on Admission: Yes New Wound: No Status Change of Wound: No Wound Location Body Site Modif: right Wound Location Body Site: elbow Wound Type: scar Bryce Test: Does not Bryce Wound Thickness: Full Thickness Wound Length: 3.0 Wound Width: 3.0 Wound Depth: utd Percent of Wound Vanduser/Red: 100 Wound Drainage Amount: None Wound Drainage Odor: None/Absent Tissue Surrounding Wound: Intact Wound Comment #1 Right medial malleolus thick dry scab noted scar tissue to surrounding skin. #2 Mid sacral full thickness scar tissue. #3 left aspect of sacral full thickness scar tissue. #4 right aspect of sacral full thickness scar tissue. #5 left ischial tuberosity full thickness scar tissue. #6 right ischial tuberosity full thickness scar tissue. #7 right elbow full thick ness scar tissue. #8 left 2nd toe callus. Recommendation. -Local wound care as ordered. -Apply SPR mattress for skin management. -Turn and reposition. -Keep clean and dry. -Optimize nutrition. -Heel protectors. -Avoid shear and friction. - Monitor scar tissue notify MD for any changes of condition to skin. -Assess and notify MD for any changes of condition to skin. DION GROVER Feb 17, 2017 08:29
[2017-02-17] MEDS: Amiodarone 200mg tab ORAL SCH (08:42)
[2017-02-17 11:53] VITALS: BP 104/55
[2017-02-17 16:00] VITALS: BP 116/62
[2017-02-17] MEDS ORDERED: FLAGYL500 MG ORAL (16:27)
--- NOTE | 2017-02-17 16:29 | General Progress Note ---
Assessment/Plan Assessment/Plan 1. Diarrhea w severe hypokalemia 2. Hypertensive heart disease with chronic systolic and diastolic heart failure. 3. Hyperlipidemia 4. History of stroke with right hemiparesis and aphasia. 5. Diabetes. no diarrhea c diff neg K rx dc home in AM Subjective ROS Limited/Unobtainable: Yes Gastrointestinal/Abdominal: Denies: diarrhea Allergies: Coded Allergies: No Known Allergies (Verified , 06/03/10) Objective Last 24 Hour Vital Signs Date Time Temp Pulse Resp B/P (MAP) Pulse Ox O2 Delivery O2 Flow Rate FiO2 02/17/17 15:35 72 18 100 Room Air 21 02/17/17 15:27 21 02/17/17 15:26 90 18 100 Room Air 02/17/17 11:53 97.7 66 20 104/55 97 Room Air 02/17/17 11:40 62 16 100 Room Air 02/17/17 11:31 67 16 100 Room Air 02/17/17 11:31 21 02/17/17 08:00 97.2 70 18 101/54 99 Room Air 02/17/17 07:50 69 18 99 Room Air 02/17/17 07:42 21 02/17/17 07:39 69 16 99 Room Air 02/17/17 05:03 97.2 68 19 110/65 99 Room Air 02/17/17 03:54 70 18 99 Room Air 2.0 02/17/17 03:46 21 02/17/17 03:45 67 18 98 Room Air 02/17/17 00:00 97.1 72 18 116/68 98 Room Air 02/16/17 23:50 68 18 98 Room Air 02/16/17 23:40 21 02/16/17 23:40 66 18 96 Room Air 02/16/17 20:00 97.6 65 16 112/66 99 Nasal Cannula 2.0 02/16/17 19:59 82 18 98 Room Air 02/16/17 19:59 86 20 Room Air 02/16/17 19:48 21 02/16/17 19:48 86 20 96 Room Air 21 Intake and Output 02/17/17 02/18/17 19:00 07:00 Intake Total 500 ml Balance 500 ml IV Total 500 ml Laboratory Tests 02/17/17 05:10: White Blood Count 6.1, Red Blood Count 3.80L, Hemoglobin 9.4L, Hematocrit 30.3L , Mean Corpuscular Volume 80, Mean Corpuscular Hemoglobin 24.7L, Mean Corpuscular Hemoglobin Concent 31.0L, Red Cell Distribution Width 15.3H, Platelet Count 146L, Mean Platelet Volume 9.0, Neutrophils (%) (Auto) 63.5, Lymphocytes (%) (Auto) 28.9, Monocytes (%) (Auto) 5.4, Eosinophils (%) (Auto) 1.2, Basophils (%) (Auto) 1.0, Sodium Level 142, Potassium Level 4.0, Chloride Level 112H, Carbon Dioxide Level 18L, Anion Gap 12, Blood Urea Nitrogen 11, Creatinine 0.7, Estimat Glomerular Filtration Rate , Glucose Level 94, Lactic Acid Level 1.10, Calcium Level 8.1L Height (Feet): 5 Height (Inches): 2.00 Weight (Pounds): 100 General Appearance: no apparent distress Neck: supple Cardiovascular: regular rhythm Respiratory/Chest: lungs clear Abdomen: non tender, soft EDWARDO HOOKS Feb 17, 2017 16:29
[2017-02-17 20:00] VITALS: BP 123/62
[2017-02-17] MEDS: metroNIDAZOLE 500mg tab ORAL SCH (21:47)
[2017-02-18] VITALS: BP 106/58
[2017-02-18] MEDS: DuoNeb 0.5-3(2.5)mg/3ml neb HHN SCH ×2 (03:10→07:42)
[2017-02-18 04:00] VITALS: BP 124/74
[2017-02-18 05:36] LABS: BASOPHILS % (AUTO) 0.9 % (0.0-2.0); EOSINOPHILS % (AUTO) 0.9 % (0.0-3.0); LYMPHOCYTES % (AUTO) 37.5 % (20.0-45.0); MEAN CORPUSCULAR HEMOGLOBIN 24.9 PG (27.0-31.0); MEAN CORPUSCULAR HGB CONC 31.7 G/DL (32.0-36.0); MEAN CORPUSCULAR VOLUME 79 FL (80-99); MEAN PLATELET VOLUME 7.3 FL (6.5-10.1); MONOCYTES % (AUTO) 5.8 % (1.0-10.0); NEUTROPHILS % (AUTO) 54.8 % (45.0-75.0); PLATELET COUNT 129 K/UL (150-450); RED BLOOD COUNT 3.81 M/UL (4.20-5.40); RED CELL DISTRIBUTION WIDTH 15.6 % (11.6-14.8); WHITE BLOOD COUNT 5.7 K/UL (4.8-10.8)
[2017-02-18 05:49] LABS: ANION GAP 10 (5-15); CALCIUM 8.5 mg/dL (8.6-10.2); CARBON DIOXIDE 21 mEQ/L (20-30); CHLORIDE 110 mEQ/L (98-107); CREATININE 0.9 mg/dL (0.5-0.9); HEMOLYSIS 2; POTASSIUM 4.9 mEQ/L (3.4-4.9); SODIUM 141 mEQ/L (135-145)
[2017-02-18] MEDS: metroNIDAZOLE 500mg tab ORAL SCH (06:14)
[2017-02-18] MEDS: NovoLOG Insulin Flexpen SUBQ SCH (06:15)
[2017-02-18] MEDS: sitaGLIPtin 50mg tab ORAL SCH (06:16)
[2017-02-18 08:00] VITALS: BP 123/65
[2017-02-18] MEDS: Amiodarone 200mg tab ORAL SCH (08:29)
--- NOTE | 2017-02-21 19:59 | Discharge Summary ---
Discharge Summary Hospital Course Date of Admission Feb 14, 2017 at 17:07 Date of Discharge Feb 18, 2017 at 11:07 Admitting Diagnosis Dehydration and possible C.Diff HPI Liya Zuluaga is a 82 year old female who was admitted on Feb 14, 2017 at 17:07 for Dehydration And Possible C-Diff Hospital Course dc summary #[id number] Discharge Medications New Medications: Metronidazole* (Flagyl*) 500 Mg Tablet 500 MG ORAL Q8HR, #12 TAB Continued Medications: Amiodarone Hcl* (Cordarone*) 200 Mg Tablet 200 MG ORAL DAILY Aspirin Ec* (Aspirin Ec*) 81 Mg Tablet.dr 81 MG ORAL DAILY, TAB Atorvastatin Calcium* (Lipitor*) 10 Mg Tablet 10 MG ORAL DAILY, TAB Carvedilol (Coreg) 12.5 Mg Tab 12.5 MG ORAL EVERY 12 HOURS, TAB Donepezil Hcl* (Aricept*) 10 Mg Tablet 10 MG ORAL DAILY, TAB Ipratropium/Albuterol Sulfate (DuoNeb 0.5-3(2.5)mg/3ml) 3 Ml Ampul.neb 3 ML HHN Q4HRT, #1 EA Losartan Potassium (Losartan Potassium) 100 Mg Tablet 100 MG ORAL DAILY, TAB Multivitamins* (Multivitamins*) 1 Each Tablet 1 TAB ORAL DAILY, TAB 0 Refills Sitagliptin* (Januvia*) 25 Mg Tablet 50 MG ORAL DAILY, #30 TAB Discontinued Medications: Azithromycin* (Zithromax*) 250 Mg Tablet 500 MG ORAL DAILY, #6 TAB Furosemide* (Lasix*) 20 Mg Tablet 20 MG ORAL DAILY, #30 TAB Discharge Condition Upon Discharge: stable Discharge Disposition Patient was discharged to Home with home health services Discharge Diagnoses: Discharge Instructions Discharge Instructions Special Instructions I have been assigned to complete a D/C Summary on this account. I was not involved in the patient management Hiwot Goldberg NP (Vanchtein) Feb 21, 2017 19:59
--- NOTE | 2017-02-22 10:31 | Discharge Summary 2 SIG ---
DATE OF ADMISSION: 02/14/2017 DATE OF DISCHARGE: 02/18/2017 The patient is admitted under Dr. Estrella. REASON FOR ADMISSION: An 82-year-old female who presented to the emergency room from home with weakness and diarrhea. Upon presentation, potassium was 2.8, no leukocytosis, and elevated lipase. The patient with a past medical history of cardiac arrest with placement of defibrillator and history of CHF. The patient has a history of diabetes, neuropathy, hyperlipidemia, chronic anemia, dementia, stroke with right hemiparesis and aphasia, depression, hypertension, congestive heart failure with escalating heart dysfunction, gallstone pancreatitis, and recent admission for pneumonia. The patient also had dysphagia. ADMITTING DIAGNOSES: 1. Severe hypokalemia. 2. Diarrhea. 3. Hypertensive heart disease with chronic systolic and diastolic heart failure. 4. Hyperlipidemia 5. History of cerebrovascular accident with right hemiparesis and aphasia. 6. Diabetes mellitus. HOSPITAL STAY: The patient was admitted. The patient was started on IV fluids. Potassium was replaced. The patient was started on empiric Flagyl. Stool for C. difficile was negative. Blood culture was negative. The patient had no leukocytosis and no fever. CT of the abdomen and pelvis revealed evidence of cholelithiasis, atelectasis, cardiomegaly, atherosclerotic disease, trace pericardial effusion, osteoporosis, suspected left renal cyst with diverticulosis of the colon. Diarrhea resolved. Potassium prior to discharge was 4.9. The patient was afebrile. The patient was stable for discharge home. Continue home medications. DISCHARGE DIAGNOSES: 1. Hypokalemia, resolved. 2. Diarrhea. 3. Hypertensive heart disease with chronic systolic and diastolic heart failure. 4. Hyperlipidemia. 5. History of cerebrovascular accident with right hemiparesis. 6. Diabetes mellitus. . DISCHARGE MEDICATIONS: See medication reconciliation list. DISCHARGE INSTRUCTIONS: The patient is discharged home with home health services and follow up with primary medical doctor. Oswald Estrella M.D. I have been assigned to dictate discharge summary on this account and I was not involved in the patient's management. Hiwot Goldberg N.P. (vanchtein) DR: MARLY JOB#: [id number] CC:
== END 2017-02-18 11:07 | disposition home or self-care (01) | DRG 641 ==
LOC: EMR 17:05 → 4E 17:07 → EDBEDREQ 17:34 → 4E 22:38 → 4W 02-15 18:44
DX: E87.6 Hypokalemia (principal); E86.0 Dehydration; E11.40 Type 2 diabetes mellitus with diabetic neuropathy, unspecified; I11.0 Hypertensive heart disease with heart failure; I50.42 Chronic combined systolic (congestive) and diastolic (congestive) heart failure; R13.10 Dysphagia, unspecified; B37.49 Other urogenital candidiasis; I69.351 Hemiplegia and hemiparesis following cerebral infarction affecting right dominant side; I50.32 Chronic diastolic (congestive) heart failure; E11.9 Type 2 diabetes mellitus without complications; R19.7 Diarrhea, unspecified; I69.320 Aphasia following cerebral infarction; Z86.74 Personal history of sudden cardiac arrest; Z95.0 Presence of cardiac pacemaker; E78.5 Hyperlipidemia, unspecified; Z88.8 Allergy status to other drugs, medicaments and biological substances; Z95.810 Presence of automatic (implantable) cardiac defibrillator
CPT/HCPCS: 36415; 74177; 80048; 80053; 81003; 82962; 83605; 83690; 84443; 85007; 85025; 87040; 87086; 87181; 87324; 94640; 94664; 99285; J1815; J7620; J8499

== ENCOUNTER 2017-02-28 10:00 | Outpatient (RCR) | payer MEDICARE, OTHER ==
[~2017-02-28] VITALS: Ht 157.5 cm; Wt 52.2 kg
[~2017-02-28 10:00] MED LIST changes: +FLAGYL500 MG ORAL
[2017-03-04] MEDS ORDERED: Lidocaine HCl 2% Jelly 5ml Tube TOPIC ONE (14:30)
== END 2017-03-19 | disposition home or self-care (01) ==
LOC: WCC 10:00
DX: L89.152 Pressure ulcer of sacral region, stage 2 (principal); L89.892 Pressure ulcer of other site, stage 2; I10 Essential (primary) hypertension; E11.9 Type 2 diabetes mellitus without complications; Z86.73 Personal history of transient ischemic attack (TIA), and cerebral infarction without residual deficits; Z85.9 Personal history of malignant neoplasm, unspecified; Z79.84 Long term (current) use of oral hypoglycemic drugs
CPT/HCPCS: 11042; 11043; G0463

== ENCOUNTER 2017-03-30 13:13 | Inpatient (IN) | payer MEDICARE, OTHER ==
[~2017-03-30] VITALS: Ht 160 cm; Wt 47.6 kg
[2017-03-30 13:25] VITALS: BP 96/48
--- NOTE | 2017-03-30 13:41 | Emergency Room Report ---
History of Present Illness General Chief Complaint: Generalized Weakness Source: Family Member, Medical Record (Zaira Rangel M.D.) Present Illness HPI 82-year-old female history of diabetes, CHF, cardiac arrest with defibrillator, CVA with right-sided hemiparesis, mostly bedbound, presenting with generalized weakness and decreased by mouth intake for 3 days. Patient lives at home and is being taken care of by her daughter. Daughter states that her baseline mental status is confused however can say certain phrases like "I love you", however patient has been more confused than her normal, also has not been able to eat or drink much for 3 days. Also has had dry cough and shortness of breath. Daughter also reports that patient cannot walk however can usually stand up however patient has been too weak to even stand Patient was last admitted to the hospital for hypokalemia and diarrhea one month ago (Zaira Rangel M.D.) Allergies: Coded Allergies: No Known Allergies (Verified , 06/03/10) Patient History Past Medical History: see triage record Past Surgical History: none Pertinent Family History: none Reviewed Nursing Documentation: PMH: Agreed, PSxH: Agreed (Zaira Rangel M.D. ) Nursing Documentation-PMH Past Medical History: No History, Except For Hx Cardiac Problems: Yes - Cardiac arrest Hx Hypertension: Yes Hx Pacemaker: No - Defubrillator Hx Asthma: Yes Hx COPD: No Hx Diabetes: Yes Hx Cancer: No Hx Gastrointestinal Problems: Yes - gallstones Hx Dialysis: No Hx Neurological Problems: Yes Hx Cerebrovascular Accident: Yes Hx Dementia: Yes Hx Seizures: No Hx Peripheral Neuropathy: Yes Hx Concentration Difficulty: Yes Hx Speech Problem: Yes - garbled Hx Weakness: Yes (Zaira Rangel M.D.) Review of Systems All Other Systems: negative except mentioned in HPI (Zaira Rangel M.D.) Physical Exam Vital Signs Date Time Temp Pulse Resp B/P (MAP) Pulse Ox O2 Delivery O2 Flow Rate FiO2 03/30/17 13:29 99.3 83 26 96/48 93 Room Air Sp02 EP Interpretation: reviewed, abnormal - Satting 90-93 on room air General Appearance: other - Very thin, fragile, chronically ill-appearing elderly female, awake however very confused mumbling words Head: normocephalic, atraumatic Eyes: bilateral eye normal inspection, bilateral eye PERRL, bilateral eye EOMI ENT: normal ENT inspection, normal pharynx, dry mucus membranes Neck: normal inspection, full range of motion, supple Respiratory: other - poor inspiratory effort however no crackles auscultated, chest symmetrical Cardiovascular #1: normal inspection, regular rate, rhythm, normal capillary refill Cardiovascular #2: 2+ radial (R), 2+ radial (L) Gastrointestinal: normal inspection, non tender, soft, non-distended, no guarding Musculoskeletal: other - R hemiparesis/contracted, nontender Neurologic: other - mumbled speech, follows commands with L side, R hemiparesis Psychiatric: other - confused Skin: normal inspection, normal color, no rash, warm/dry, well hydrated, normal turgor (Zaira Rangel M.D.) Procedures Critical Care Time Critical Care Time 40 minutes of CC time 82-year-old female with generalized weakness VS: Hypoxic, borderline hypotensive Airway patent. PLAN: IV access, labs, lactate, Blood/Urine Cx, Abx Anticipate admission to Tele vs. GUNNAR CC time also includes review of labs, review of EMR, discussion with family and paperwork from SNF, d/w hospitalist CC could include dosing of pressors, additional Abx CC time does not include procedures (Zaira Rangel M.D.) Medical Decision Making Diagnostic Impression: Primary Impression: Hypoxia Additional Impressions: Weakness Decreased oral intake Hypernatremia Renal insufficiency ER Course 82-year-old female with generalized weakness DDX: Dehydration, electrolyte disturbance Sepsis 2/2 UTI, PNA, bacteremia Plan: O2 via nasal cannula Will hold IV fluids for now as patient has CHF Obtain labs including cbc, bmp, blood culture, blood gas, lactate, ua, ucx CXR EKG Broad spectrum ABX ER course: Pt's airway remains patent, supplemental O2 provided by NC Given broad spectrum abx - vancomycin and zosyn Disposition: Patient will admitted to telemetry Signed out patient to Dr. Montgomery 82-year-old female with generalized weakness Pending remaining labs Pending x-ray Admit to telemetry Please note that this Emergency Department Report was dictated using [employer] pathologist technology software, occasionally this can lead to erroneous entry secondary to interpretation by the dictation equipment. (Zaira Rangel M.D.) ER Course Patient was discussed with Dr. Oswald Estrella for inpatient management due to primary care physician. The patient was noted to be hypernatremic. Labs Test 03/30/17 13:54 03/30/17 14:30 03/30/17 18:25 White Blood Count 11.1 K/UL (4.8-10.8) Red Blood Count 4.15 M/UL (4.20-5.40) Hemoglobin 10.1 G/DL (12.0-16.0) Hematocrit 33.2 % (37.0-47.0) Mean Corpuscular Volume 80 FL (80-99) Mean Corpuscular Hemoglobin 24.3 PG (27.0-31.0) Mean Corpuscular Hemoglobin Concent 30.4 G/DL (32.0-36.0) Red Cell Distribution Width 17.1 % (11.6-14.8) Platelet Count 82 K/UL (150-450) Mean Platelet Volume 10.6 FL (6.5-10.1) Neutrophils (%) (Auto) % (45.0-75.0) Lymphocytes (%) (Auto) % (20.0-45.0) Monocytes (%) (Auto) % (1.0-10.0) Eosinophils (%) (Auto) % (0.0-3.0) Basophils (%) (Auto) % (0.0-2.0) Differential Total Cells Counted 100 Neutrophils % (Manual) 93 % (45-75) Lymphocytes % (Manual) 6 % (20-45) Monocytes % (Manual) 1 % (1-10) Eosinophils % (Manual) 0 % (0-3) Basophils % (Manual) 0 % (0-2) Band Neutrophils 0 % (0-8) Platelet Estimate Decreased Platelet Morphology Normal Polychromasia 1+ Hypochromasia 1+ Anisocytosis 1+ Microcytosis 1+ Sodium Level 164 MMOL/L (136-145) Potassium Level 3.4 MMOL/L (3.5-5.1) Chloride Level 132 MMOL/L (98-107) Carbon Dioxide Level 18 MMOL/L (21-32) Anion Gap 14 (5-15) Blood Urea Nitrogen 32 mg/dL (7-18) Creatinine 1.6 MG/DL (0.55-1.30) Estimat Glomerular Filtration Rate mL/min (>60) Glucose Level 331 MG/DL (74-106) Calcium Level 9.3 MG/DL (8.5-10.1) Total Bilirubin 0.3 MG/DL (0.2-1.0) Aspartate Amino Transf (AST/SGOT) 26 U/L (15-37) Alanine Aminotransferase (ALT/SGPT) 19 U/L (12-78) Alkaline Phosphatase 82 U/L (46-116) Total Creatine Kinase 352 U/L (26-308) Creatine Kinase MB 1.0 NG/ML (0.0-3.6) Creatine Kinase MB Relative Index 0.2 Troponin I 0.050 ng/mL (0.000-0.056) Pro-B-Type Natriuretic Peptide 6660 (0-125) Total Protein 6.3 G/DL (6.4-8.2) Albumin 2.1 G/DL (3.4-5.0) Globulin 4.2 g/dL Albumin/Globulin Ratio 0.5 (1.0-2.7) Urine Color Yellow Urine Appearance Slightly cloudy Urine pH 5 (4.5-8.0) Urine Specific [place] 1.015 (1.005-1.035) Urine Protein 2+ (NEGATIVE) Urine Glucose (UA) Negative (NEGATIVE) Urine Ketones Negative (NEGATIVE) Urine Occult Blood Negative (NEGATIVE) Urine Nitrite Negative (NEGATIVE) Urine Bilirubin Negative (NEGATIVE) Urine Urobilinogen Normal MG/DL (0.0-1.0) Urine Leukocyte Esterase 1+ (NEGATIVE) Urine RBC 2-4 /HPF (0 - 2) Urine WBC 2-4 /HPF (0 - 2) Urine Squamous Epithelial Cells Occasional /LPF Urine Amorphous Sediment Moderate /LPF (NONE) Urine Bacteria Many /HPF (NONE) Urine Yeast Moderate /HPF (NONE) (Nestor Montgomery) EKG Diagnostic Results Rate: normal Rhythm: NSR ST Segments: other - RBBB (present on previous EKGs), T wave flattening lateral leads ASA given to the pt in ED: No (Zaira Rangel M.D.) Rhythm Strip Diag. Results EP Interpretation: yes Rate: 74 Rhythm: NSR, no PVC's, no ectopy (Zaira Rangel M.D.) Chest X-Ray Diagnostic Results Chest X-Ray Diagnostic Results : Chest X-Ray Ordered: Yes # of Views/Limited/Complete: 1 View Indication: Shortness of Breath EP Interpretation: Yes Interpretation: other - b/l pulm vasc congestion, defib on L chest, possible L sided infitlrate Impression: Other - chf, possible L sided pneumonia Electronically Signed by: Electronically signed by Zaira Rangel MD (Zaira Rangel M.D.) Last Vital Signs Date Time Temp Pulse Resp B/P (MAP) Pulse Ox O2 Delivery O2 Flow Rate FiO2 03/30/17 13:29 99.3 83 26 96/48 93 Room Air (Zaira Rangel M.D.) Status: unchanged (Nestor Montgomery) Disposition: ADMITTED INPATIENT Condition: Serious Referrals: OSWALD ESTRELLA (PCP) Zaira Rangel M.D. Mar 30, 2017 13:41 Nestor Montgomery Mar 30, 2017 17:52
[2017-03-30] MEDS ORDERED: Vancomycin 1 GM in NS 275 ML IVPB ONE (14:00)
[2017-03-30] MEDS ORDERED: Piperacillin/Tazobactam 3.375 GM in NS 110 ML IVPB ONE (14:00)
[2017-03-30 14:09] LABS: MEAN CORPUSCULAR HEMOGLOBIN 24.3 PG (27.0-31.0); MEAN CORPUSCULAR HGB CONC 30.4 G/DL (32.0-36.0); MEAN CORPUSCULAR VOLUME 80 FL (80-99); MEAN PLATELET VOLUME 10.6 FL (6.5-10.1); PLATELET COUNT 82 K/UL (150-450); RED BLOOD COUNT 4.15 M/UL (4.20-5.40); RED CELL DISTRIBUTION WIDTH 17.1 % (11.6-14.8); WHITE BLOOD COUNT 11.1 K/UL (4.8-10.8)
--- NOTE | 2017-03-30 14:26 | Diagnostic Imaging Report ---
Indication: Shortness of breath Technique: One view of the chest Comparison: 12/01/2016 Findings: Left chest bifocal AICD is again demonstrated. There is elevation left hemidiaphragm. Granulomatous calcifications are again demonstrated in the left aortopulmonary window and left upper lobe. Atelectatic changes are seen at the left lung base, decreased from the previous study. The lungs and pleural spaces otherwise clear. Heart size is probably upper limits of normal. Previously demonstrated colonic contrast is no longer evident. Otherwise, no significant interim change Impression: Elevated left hemidiaphragm with resultant basilar atelectatic change No definite acute process Evidence of old granulomatous disease Other findings as noted
[2017-03-30 14:41] LABS: ALANINE AMINOTRANSFERASE 19 U/L (12-78); ALBUMIN/GLOBULIN RATIO 0.5 (1.0-2.7); ANION GAP 14 (5-15); ASPARTATE AMINO TRANSFERASE 26 U/L (15-37); CALCIUM 9.3 MG/DL (8.5-10.1); CARBON DIOXIDE 18 MMOL/L (21-32); CHLORIDE 132 MMOL/L (98-107); CREATININE 1.6 MG/DL (0.55-1.30); POTASSIUM 3.4 MMOL/L (3.5-5.1); TOTAL PROTEIN 6.3 G/DL (6.4-8.2)
[2017-03-30] MEDS ORDERED: Zosyn 3.375gm inj ONE (14:41)
[2017-03-30 14:46] LABS: SODIUM 164 MMOL/L (136-145)
[2017-03-30 14:46] LABS: APPEARANCE,URINE SLIGHTLY CLOUDY; KETONES,URINE NEGATIVE (NEGATIVE); LEUKOCYTE ESTERASE ,URINE 1+ (NEGATIVE); NITRITE,URINE NEGATIVE (NEGATIVE); PH,URINE 5 (4.5-8.0); PROTEIN,URINE 2+ (NEGATIVE); UROBILINOGEN,URINE NORMAL MG/DL (0.0-1.0)
[2017-03-30 15:02] LABS: BACTERIA,URINE MANY /HPF; SQUAMOUS EPITHELIAL CELL,UR OCCASIONAL /LPF (NONE/OCC)
[2017-03-30 15:03] LABS: AMORPHOUS SEDIMENT,UR MODERATE /LPF; YEAST,URINE MODERATE /HPF
[2017-03-30] MEDS ORDERED: Vancomycin 1gm inj IVPB ONE (15:26)
[2017-03-30 16:22] LABS: REFLEX LACTIC ACID YES OR NO YES
[2017-03-30] MEDS ORDERED: POTASSIUM20 MEQ/15 PO (16:24)
[2017-03-30] MEDS ORDERED: LIPITOR10 MG ORAL (16:24)
[2017-03-30] MEDS ORDERED: METFORMIN HCL500 M1 ORAL (16:26)
[2017-03-30] MEDS ORDERED: METFORMIN HCL850 M1 ORAL (16:27)
[2017-03-30] MEDS ORDERED: JANUVIA50 MG ORAL (16:27)
[2017-03-30 16:35] VITALS: BP 149/37
[2017-03-30 16:37] VITALS: BP 149/37
[2017-03-30 17:02] LABS: BAND NEUTROPHILS % (MANUAL) 0 % (0-8); BASOPHILS % (MANUAL) 0 % (0-2); EOSINOPHILS % (MANUAL) 0 % (0-3); LYMPHOCYTES % (MANUAL) 6 % (20-45); NEUTROPHILS % (MANUAL) 93 % (45-75); PLATELET ESTIMATE DECREASED; TOTAL CELLS COUNTED 100
[2017-03-30 17:03] LABS: ANISOCYTOSIS 1+; HYPOCHROMASIA 1+; MICROCYTES 1+; PLATELET MORPHOLOGY NORMAL; POLYCHROMASIA 1+
[2017-03-30 17:38] VITALS: BP 139/58
[2017-03-30] MEDS: D5W w/KCl 20mEq 1,000 ML IV SCH (18:15)
--- NOTE | 2017-03-30 18:24 | History & Physical ---
History and Physical History & Physicial HISTORY OF PRESENT ILLNESS: This elderly woman was admitted from home due to weakness and poor intake. he has pulmonary infiltrate and high Na with elevated lactate. Admission was arranged. PAST MEDICAL HISTORY: Cardiac arrest in April 2012 with placement of a defibrillator and pacemaker. 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 Admitted for pneumonia recently. She has dysphagia. ALLERGIES: NESHA INHIBITOR CAUSES COUGH. VACCINES. SHE HAD PNEUMOCOCCAL VACCINE IN 2008 AND FLU VACCINE ANNUALLY. MEDICATIONS: Reviewed and reconciled. PAST SURGICAL HISTORY: Pacemaker, defibrillator and cholecystectomy. SOCIAL HISTORY: She lives at home with the daughter. She does not smoke. She has a high school education and is retired. REVIEW OF SYSTEMS: Cannot be obtained. The patient is aphasic. PHYSICAL EXAMINATION: GENERAL: The patient is alert and responsive, smiling at me VITAL SIGNS: The vital signs are stable. There is no high fever. HEENT: The head is normocephalic. NECK: No jugular vein distention or lymphadenopathy. CHEST: Few rales CARDIAC: Rhythm is regular. ABDOMEN: Soft and nontender. Liver and spleen are not enlarged. EXTREMITIES: No clubbing, cyanosis, or edema. CHEST: An implanted defibrillator is noted in the left anterior axillary region. LABORATORY DATA: Reviewed. Na 164 IMPRESSIONS: 1. Dehydration w severe hypernatremia 2. Pneumonia w sepsis 3. Hyperlipidemia 4. History of stroke with right hemiparesis and aphasia. 5. Diabetes. 6. Hypertensive heart disease with chronic systolic and diastolic heart failure. PLAN: The patient will be admitted to inpatient. We will give abx and IVF. Nephrology was notified. She will be DNR per discussion with the daughter at the bedside. EDWARDO HOOKS Mar 30, 2017 18:24
[2017-03-30] MEDS: Albuterol/Ipratropium 3ml neb HHN SCH ×2 (19:00→23:31)
[2017-03-30 20:18] VITALS: BP 86/52
[2017-03-30 20:25] VITALS: BP 102/61
[2017-03-30] MEDS: Carvedilol 12.5mg tab ORAL SCH (21:00)
[2017-03-30] MEDS: NovoLOG Insulin Flexpen SUBQ SCH (21:32)
[2017-03-31 00:29] VITALS: BP 129/84
[2017-03-31] MEDS: Albuterol/Ipratropium 3ml neb HHN SCH ×6 (03:00→22:58)
[2017-03-31 04:16] VITALS: BP 97/55
[2017-03-31] MEDS: D5W w/KCl 20mEq 1,000 ML IV SCH ×2 (04:40→14:00)
[2017-03-31] MEDS: NovoLOG Insulin Flexpen SUBQ SCH ×4 (06:26→22:09)
[2017-03-31 07:14] LABS: MEAN CORPUSCULAR HEMOGLOBIN 23.7 PG (27.0-31.0); MEAN CORPUSCULAR HGB CONC 29.6 G/DL (32.0-36.0); MEAN CORPUSCULAR VOLUME 80 FL (80-99); MEAN PLATELET VOLUME 14.3 FL (6.5-10.1); PLATELET COUNT 89 K/UL (150-450); RED CELL DISTRIBUTION WIDTH 16.8 % (11.6-14.8); WHITE BLOOD COUNT 11.3 K/UL (4.8-10.8)
[2017-03-31 07:50] LABS: REFLEX LACTIC ACID YES OR NO YES
[2017-03-31 08:00] VITALS: BP 97/58
[2017-03-31] MEDS ORDERED: Azithromycin 250 MG in D5W 275 ML IV SCH (09:00)
[2017-03-31] MEDS ORDERED: Amiodarone 200mg tab ORAL SCH (09:00)
[2017-03-31] MEDS ORDERED: Losartan 50mg tab ORAL SCH (09:00)
[2017-03-31] MEDS ORDERED: sitaGLIPtin 25mg tab ORAL SCH (09:00)
[2017-03-31] MEDS ORDERED: Aspirin EC 81mg tab ORAL SCH (09:00)
[2017-03-31] MEDS ORDERED: Donepezil 10mg tab ORAL SCH (09:00)
[2017-03-31] MEDS: Carvedilol 12.5mg tab ORAL SCH ×2 (09:56→21:00)
[2017-03-31] MEDS: cefTRIAXone 1 GM in NS 55 ML IVPB SCH (09:58)
[2017-03-31 10:02] LABS: ANISOCYTOSIS 1+; BAND NEUTROPHILS % (MANUAL) 0 % (0-8); BASOPHILS % (MANUAL) 0 % (0-2); EOSINOPHILS % (MANUAL) 1 % (0-3); HYPOCHROMASIA 1+; LYMPHOCYTES % (MANUAL) 8 % (20-45); MICROCYTES 1+; NEUTROPHILS % (MANUAL) 87 % (45-75); PLATELET ESTIMATE DECREASED; PLATELET MORPHOLOGY NORMAL; TOTAL CELLS COUNTED 100
[2017-03-31 10:03] LABS: SCHISTOCYTES OCCASIONAL; TARGET CELLS OCCASIONAL
[2017-03-31 12:00] VITALS: BP 105/54
--- NOTE | 2017-03-31 12:46 | Wound Care Consultation ---
Wound Assessment Wound Assessment #1: Wound Number: 1 Wound Present on Admission: Yes New Wound: No Status Change of Wound: No Wound Location Body Site Modif: left Wound Location Body Site: ear Wound Type: pressure ulcer Bryce Test: Does not Bryce Pressure Ulcer Stage: Unstageable - dry yellowish Wound Thickness: Full Thickness Wound Length: 2.0 Wound Width: 1.8 Wound Depth: utd Percent of Wound Bed Yellow/Wh: 100 Wound Drainage Amount: None Wound Drainage Odor: None/Absent Tissue Surrounding Wound: Intact Wound Assessment #2: Wound Number: 2 Wound Present on Admission: Yes New Wound: No Status Change of Wound: No Wound Location Body Site Modif: mid Wound Location Body Site: sacral Wound Type: pressure ulcer Bryce Test: Does not Bryce Pressure Ulcer Stage: III Wound Thickness: Full Thickness Wound Length: 2.5 Wound Width: 2.5 Wound Depth: 0.2 Percent of Wound Kappa/Red: 100 Wound Drainage Description: Serosanguineous Wound Drainage Amount: Scant Wound Drainage Odor: None/Absent Tissue Surrounding Wound: scattered scar tissue Wound General Appearance: Reddened, Draining Wound Assessment #3: Wound Number: 3 Wound Present on Admission: Yes New Wound: No Status Change of Wound: No Wound Location Body Site Modif: right, lateral Wound Location Body Site: malleolus/ankle Wound Type: pressure ulcer Bryce Test: Does not Bryce Pressure Ulcer Stage: Unstageable Wound Thickness: Full Thickness Wound Length: 1.8 Wound Width: 1.0 Wound Depth: utd Percent of Wound Bed Yellow/Wh: 100 - dry Wound Drainage Amount: None Wound Drainage Odor: None/Absent Tissue Surrounding Wound: Intact Wound Comment #1 Mid sacral stage III pressure ulcer #2 Right lateral malleolus unstageable pressure ulcer with yellowish dry scab adhered to the wound bed #3 Left ear unstageable pressure ulcer with yellowish dry scab adhered to the wound bed #4 Left and right ischial tuberosity noted with scar tissue Recommendation -Local wound care per protocol -Keep clean and dry -Turn and reposition -Optimize nutrition -Heel protector on both heels -Offload both heels -Low air loss mattress -Assess and f/u accordingly for any changes CHRISTINE RDZ RN Mar 31, 2017 12:46
--- NOTE | 2017-03-31 14:44 | Consultation ---
Consult Note Consult Note Full nephrology consult to follow #[id number] ERLIN SANCHES Mar 31, 2017 14:43
--- NOTE | 2017-03-31 15:27 | Pulmonology Progress Note ---
Assessment/Plan Assessment/Plan 1. Dehydration w severe hypernatremia 2. Pneumonia w sepsis 3. Hyperlipidemia 4. History of stroke with right hemiparesis and aphasia. 5. Diabetes. 6. Hypertensive heart disease with chronic systolic and diastolic heart failure. labs pdg cont D5W cont abx disc w dtr, RN nephrology following Subjective ROS Limited/Unobtainable: Yes Allergies: Coded Allergies: No Known Allergies (Verified , 06/03/10) Objective Last 24 Hour Vital Signs Date Time Temp Pulse Resp B/P (MAP) Pulse Ox O2 Delivery O2 Flow Rate FiO2 03/31/17 15:22 70 16 99 Room Air 03/31/17 14:48 75 17 96 Room Air 03/31/17 12:00 97.7 68 20 105/54 98 Room Air 03/31/17 11:55 71 16 99 Room Air 03/31/17 11:45 65 17 97 Room Air 03/31/17 09:56 71 97/58 03/31/17 09:55 97/58 03/31/17 09:00 73 03/31/17 08:00 97.0 71 21 97/58 97 Room Air 03/31/17 07:39 69 16 99 Room Air 03/31/17 07:32 71 17 Room Air 03/31/17 07:32 71 17 97 Room Air 03/31/17 04:16 97.9 69 20 97/55 99 Room Air 03/31/17 04:00 61 03/31/17 03:00 Room Air 21 03/31/17 03:00 Room Air 21 03/31/17 00:29 96.8 65 16 129/84 95 Room Air 03/31/17 00:00 63 03/30/17 23:27 86 16 99 Room Air 21 03/30/17 23:20 87 16 97 Room Air 21 03/30/17 23:20 35 03/30/17 21:00 66 102/61 03/30/17 20:25 66 102/61 03/30/17 20:18 96.6 71 16 86/52 94 Room Air 03/30/17 20:00 72 03/30/17 19:05 84 18 Room Air 21 03/30/17 19:05 21 03/30/17 19:05 86 16 96 Room Air 21 03/30/17 17:38 97.7 66 139/58 94 Room Air 03/30/17 17:04 99.3 65 22 149/37 99 Room Air 03/30/17 16:37 65 22 149/37 99 Room Air 03/30/17 16:35 66 21 149/37 94 Room Air Intake and Output 03/31/17 04/01/17 19:00 07:00 Intake Total 350 ml Balance 350 ml Intake IV Total 350 ml General Appearance: no acute distress Respiratory/Chest: lungs clear Cardiovascular: normal rate Abdomen: soft, non tender Microbiology Date/Time Source Procedure Growth Status 03/30/17 14:30 Urine,Clean Catch Urine Culture - Preliminary Resulted 03/30/17 23:30 Sacral Wound Gram Stain - Final Resulted 03/30/17 23:30 Sacral Wound Wound Culture Pending Resulted Laboratory Tests 03/30/17 18:25: Lactic Acid Level 4.50H 03/31/17 06:50: Lactic Acid Level 2.40H, White Blood Count 11.3H, Red Blood Count 4.10L, Hemoglobin 9.7L, Hematocrit 32.9L, Mean Corpuscular Volume 80, Mean Corpuscular Hemoglobin 23.7L, Mean Corpuscular Hemoglobin Concent 29.6L, Red Cell Distribution Width 16.8H, Platelet Count 89L, Mean Platelet Volume 14.3H, Neutrophils (%) (Auto) , Lymphocytes (%) (Auto) , Monocytes (%) (Auto) , Eosinophils (%) (Auto) , Basophils (%) (Auto) , Differential Total Cells Counted 100, Neutrophils % (Manual) 87H, Lymphocytes % (Manual) 8L, Monocytes % (Manual) 4, Eosinophils % (Manual) 1, Basophils % (Manual) 0, Band Neutrophils 0 , Platelet Estimate DecreasedL, Platelet Morphology Normal, Hypochromasia 1+, Anisocytosis 1+, Microcytosis 1+, Target Cells Occasional, Schistocytes Occasional 03/31/17 09:00: Lactic Acid Level 3.10H Current Medications Medications (Trade) Dose Ordered Sig/Sam Route PRN Reason Start Time Stop Time Status Last Admin Dose Admin Albuterol/ Ipratropium (DuoNeb 0.5-3(2.5)mg/3ml) 3 ml Q4HRT HHN 03/30/17 19:00 04/04/17 18:59 03/31/17 14:48 Amiodarone HCl (Cordarone) 200 mg DAILY ORAL 03/31/17 09:00 04/30/17 08:59 03/31/17 09:55 Aspirin (Ecotrin) 81 mg DAILY ORAL 03/31/17 09:00 04/30/17 08:59 03/31/17 09:56 Atorvastatin Calcium (Lipitor) 10 mg QHS ORAL 03/30/17 21:00 04/29/17 20:59 03/30/17 21:30 Azithromycin 250 mg/Dextrose 275 ml @ 275 mls/hr DAILY IV 03/31/17 09:00 04/06/17 09:59 03/31/17 09:57 Carvedilol (Coreg) 12.5 mg EVERY 12 HOURS ORAL 03/30/17 21:00 04/29/17 20:59 03/31/17 09:56 Ceftriaxone Sodium 1 gm/ Sodium Chloride 55 ml @ 110 mls/hr DAILY IVPB 03/31/17 09:00 04/07/17 08:59 03/31/17 09:58 Dextrose (Dextrose 50%) STAT PRN IV Hypoglycemia 03/30/17 20:30 04/29/17 20:29 Dextrose/ Electrolytes 1,000 ml @ 100 mls/hr Q10H IV 03/30/17 18:00 04/29/17 17:59 03/31/17 14:00 Donepezil HCl (Aricept) 10 mg DAILY ORAL 03/31/17 09:00 04/30/17 08:59 03/31/17 09:57 Insulin Aspart (NovoLOG) BEFORE MEALS AND HS SUBQ 03/30/17 21:00 04/29/17 20:59 03/31/17 12:58 Sitagliptin Phosphate (Januvia) 25 mg DAILY ORAL 03/31/17 09:00 04/30/17 08:59 03/31/17 09:56 EDWARDO HOOKS Mar 31, 2017 15:27
[2017-03-31 16:00] VITALS: BP 96/58
[2017-03-31 20:00] VITALS: BP 105/48
--- NOTE | 2017-03-31 21:00 | Consultation ---
DATE OF CONSULTATION: 03/31/2017 NEPHROLOGY CONSULTATION REFERRING PHYSICIAN: Oswald Estrella M.D. REASON FOR CONSULTATION: Hyponatremia and acute kidney injury. HISTORY OF PRESENT ILLNESS: This is a very pleasant 82-year-old female, who apparently has been brought from home due to weakness and poor p.o. intake. She was found to have some pulmonary infiltrates and has been started on IV antibiotics. She is found to have a serum sodium of 164 and serum creatinine 1.6. Her baseline serum creatinine being in the range of 0.7 to 0.9 milligram/deciliter. She also has had some elevated lactate. She has had previous strokes and has some aphasia, is not able to give me a very fruitful history. PAST MEDICAL HISTORY: Significant for cardiac arrest in 04/2012 with the placement of the defibrillator and a pacemaker, has had longstanding diabetes mellitus, neuropathy hyperlipidemia, chronic anemia, dementia, has had multiple strokes in the past with right hemiparesis and aphasia, depression, congestive heart failure with diastolic dysfunction and gallstone pancreatitis. PAST SURGICAL HISTORY: Status post pacemaker and defibrillator placement as well as cholecystectomy. MEDICATIONS: Prior to admission has been amiodarone 200 mg p.o. daily, aspirin 81 mg p.o. daily, Atorvastatin 10 mg p.o. daily, Carvedilol 12.5 mg p.o. b.i.d., Aricept 10 mg p.o. daily, losartan 100 mg p.o. daily, metformin 500 mg p.o. b.i.d., metronidazole 500 mg p.o. b.i.d., potassium chloride 20 mEq p.o. daily as well as Januvia 50 mg p.o. daily. SOCIAL HISTORY: She lives at home with her daughter. Does not smoke. Does not drink alcohol. She has retired and has a high school diploma. REVIEW OF SYSTEMS: Impossible since she is not able to give me much history. PHYSICAL EXAMINATION: GENERAL: She is a very cachectic-looking lady, does not seem to be in much acute distress, lying down in bed. VITAL SIGNS: Blood pressure is 105/54, pulse 68, respirations 18, and temperature 97.7 degrees. HEENT: Head is atraumatic. Eyes, pupils reactive to light. No evidence of papilledema. Ears canals are clear. Tympanic membranes are intact. Nose, nares are patent without any nasal discharge. Throat without inflammation or exudate. NECK: Supple. Jugular venous distention is somewhat low. No cervical adenopathies. No thyromegaly. HEART: Regular rhythm. Distant sounds. LUNGS: Few rhonchi in both bases. ABDOMEN: Supple. Bowel sounds positive. No hepatosplenomegaly. EXTREMITIES: Lower extremity shows no cyanosis or clubbing. No pedal edema. NEUROLOGICAL: She has a right-sided hemiparesis and she has some degree of aphasia. LABORATORY AND DIAGNOSTIC DATA: Laboratory data shows a sodium 164, potassium 3.4, chloride 132, BUN is 32, and creatinine 1.6, and glucose 331. Calcium is 9.3. ProBNP 6660. Albumin is 2.1. WBC of 11.3, hemoglobin is 9.7, hematocrit 32.9, and platelets of 89. Urinalysis is showing 2 to 4 RBCs, 2 to 4 WBCs, and 2+ protein. IMPRESSION: 1. She has evidence of hypernatremia with water deficit calculated at about 4.88 liter. 2. Acute kidney injury due to prerenal state, caused by dehydration. 3. Underlying pneumonia and possible sepsis with elevated lactate. PLAN: She has been admitted. I agree with D5W starting at 100 mL/hour. I agree with IV antibiotics. She has been started on vancomycin and in the presence of acute kidney injury, I would stop her losartan. At the end, I would like to thank you, Dr. Estrella for letting me be involved in the care of this very nice lady and please do not hesitate to contact me if you have any question. Alin James M.D. DR: TJ JOB#: [id number] CC:
--- NOTE | 2017-03-31 23:03 | Cardiology Report ---
APPROVED REPORT EKG Measurement Heart [id number] Sinus rhythm with occasional premature ventricular complexes Right bundle branch block Possible Lateral infarct, age undetermined Abnormal ECG
[2017-03-31 23:20] LABS: ANION GAP 12 (5-15); CALCIUM 8.6 MG/DL (8.5-10.1); CARBON DIOXIDE 19 MMOL/L (21-32); CHLORIDE 123 MMOL/L (98-107); CREATININE 1.3 MG/DL (0.55-1.30); POTASSIUM 3.5 MMOL/L (3.5-5.1); SODIUM 154 MMOL/L (136-145)
[2017-04-01] VITALS (8 sets, daily range): BP systolic 82–129; BP diastolic 46–79
[2017-04-01] MEDS: D5W w/KCl 20mEq 1,000 ML IV SCH ×2 (01:40→11:02)
[2017-04-01] MEDS: Albuterol/Ipratropium 3ml neb HHN SCH ×6 (02:40→23:00)
[2017-04-01] MEDS: NovoLOG Insulin Flexpen SUBQ SCH ×4 (06:14→21:16)
[2017-04-01 07:55] LABS: MEAN CORPUSCULAR HEMOGLOBIN 23.8 PG (27.0-31.0); MEAN CORPUSCULAR VOLUME 79 FL (80-99); MEAN PLATELET VOLUME 13.9 FL (6.5-10.1); PLATELET COUNT 84 K/UL (150-450); RED BLOOD COUNT 3.74 M/UL (4.20-5.40)
[2017-04-01 08:07] LABS: ANION GAP 9 (5-15); CALCIUM 8.4 MG/DL (8.5-10.1); CARBON DIOXIDE 20 MMOL/L (21-32); CHLORIDE 116 MMOL/L (98-107); CREATININE 1.1 MG/DL (0.55-1.30); POTASSIUM 3.3 MMOL/L (3.5-5.1); SODIUM 145 MMOL/L (136-145)
[2017-04-01] MEDS: cefTRIAXone 1 GM in NS 55 ML IVPB SCH ×2 (09:00→09:58)
[2017-04-01] MEDS: Amiodarone 200mg tab ORAL SCH (09:57)
[2017-04-01] MEDS: Aspirin EC 81mg tab ORAL SCH (09:57)
[2017-04-01] MEDS: Carvedilol 12.5mg tab ORAL SCH ×2 (09:57→21:00)
[2017-04-01] MEDS: Donepezil 10mg tab ORAL SCH (09:57)
[2017-04-01] MEDS ORDERED: D5W w/KCl 20mEq 1,000 ML IV SCH (10:00)
[2017-04-01 10:21] LABS: BAND NEUTROPHILS % (MANUAL) 0 % (0-8); BASOPHILS % (MANUAL) 0 % (0-2); BURR CELLS 1+; EOSINOPHILS % (MANUAL) 2 % (0-3); HYPOCHROMASIA 1+; LYMPHOCYTES % (MANUAL) 14 % (20-45); NEUTROPHILS % (MANUAL) 83 % (45-75); PLATELET ESTIMATE DECREASED; PLATELET MORPHOLOGY NORMAL; TARGET CELLS 1+; TOTAL CELLS COUNTED 100
[2017-04-01 10:22] LABS: ANISOCYTOSIS 1+; SCHISTOCYTES 1+; TEAR DROP CELLS 1+
[2017-04-01] MEDS: Azithromycin 250 MG in D5W 275 ML IV SCH (11:01)
--- NOTE | 2017-04-01 11:50 | Pulmonology Progress Note ---
Assessment/Plan Assessment/Plan Assessment/Plan 1. Dehydration w severe hypernatremia 2. Pneumonia w sepsis 3. Hyperlipidemia 4. History of stroke with right hemiparesis and aphasia. 5. Diabetes. 6. Hypertensive heart disease with chronic systolic and diastolic heart failure. labs pdg cont D5W cont abx disc w dtr, RN nephrology following Subjective Interval Events: none Constitutional: Reports: no symptoms HEENT: Repors: no symptoms Respiratory: Reports: no symptoms Cardiovascular: Reports: no symptoms Allergies: Coded Allergies: No Known Allergies (Verified , 06/03/10) Objective Last 24 Hour Vital Signs Date Time Temp Pulse Resp B/P (MAP) Pulse Ox O2 Delivery O2 Flow Rate FiO2 04/01/17 09:57 75 125/79 04/01/17 08:00 97.8 75 19 125/79 97 Nasal Cannula 2.0 04/01/17 07:46 65 20 100 Nasal Cannula 2.0 28 04/01/17 07:36 66 20 100 Nasal Cannula 2.0 28 04/01/17 07:35 66 20 Nasal Cannula 2.0 04/01/17 07:34 Nasal Cannula 2.0 04/01/17 07:33 98 Nasal Cannula 2.0 04/01/17 04:00 98.6 71 18 117/71 97 Nasal Cannula 2.0 04/01/17 04:00 60 04/01/17 02:40 Nasal Cannula 2.0 28 04/01/17 02:40 Nasal Cannula 2.0 28 04/01/17 00:00 97.5 70 106/46 Room Air 04/01/17 00:00 66 03/31/17 23:06 71 16 98 Room Air 21 03/31/17 22:58 71 16 96 Room Air 21 03/31/17 22:58 21 03/31/17 21:00 69 105/48 03/31/17 20:00 71 03/31/17 20:00 97.7 69 20 105/48 91 Room Air 03/31/17 19:00 66 16 98 Room Air 21 03/31/17 18:53 64 16 Room Air 03/31/17 18:53 21 03/31/17 18:53 64 16 95 Room Air 21 03/31/17 16:00 97.0 70 20 96/58 95 Room Air 03/31/17 16:00 68 03/31/17 15:22 70 16 99 Room Air 03/31/17 14:48 75 17 96 Room Air 03/31/17 12:00 97.7 68 20 105/54 98 Room Air 03/31/17 12:00 61 03/31/17 11:55 71 16 99 Room Air Intake and Output 04/01/17 04/02/17 19:00 07:00 Intake Total 155 ml Balance 155 ml Intake IV Total 155 ml General Appearance: no acute distress HEENT: normocephalic Respiratory/Chest: chest wall non-tender, lungs clear Cardiovascular: normal peripheral pulses Microbiology Date/Time Source Procedure Growth Status 03/30/17 13:54 Blood Blood Culture - Preliminary NO GROWTH AFTER 24 HOURS Resulted 03/30/17 13:44 Blood Blood Culture - Preliminary NO GROWTH AFTER 24 HOURS Resulted 03/30/17 14:30 Urine,Clean Catch Urine Culture - Preliminary Streptococcus Species Resulted 03/30/17 23:30 Sacral Wound Gram Stain - Final Resulted 03/30/17 23:30 Wound Culture - Preliminary Gram Negative Bacillus 1 Gram Negative Bacillus 2 Resulted Laboratory Tests 03/31/17 21:50: Sodium Level 154H, Potassium Level 3.5, Chloride Level 123H, Carbon Dioxide Level 19L, Anion Gap 12, Blood Urea Nitrogen 27H, Creatinine 1.3, Estimat Glomerular Filtration Rate , Glucose Level 205#H, Calcium Level 8.6 04/01/17 07:00: Sodium Level 145, Potassium Level 3.3L, Chloride Level 116H, Carbon Dioxide Level 20L, Anion Gap 9, Blood Urea Nitrogen 20H, Creatinine 1.1, Estimat Glomerular Filtration Rate , Glucose Level 180H, Calcium Level 8.4L, White Blood Count 10.0, Red Blood Count 3.74L, Hemoglobin 8.9L, Hematocrit 29.7L, Mean Corpuscular Volume 79L, Mean Corpuscular Hemoglobin 23.8L, Mean Corpuscular Hemoglobin Concent 30.0L, Red Cell Distribution Width 16.0H, Platelet Count 84L, Mean Platelet Volume 13.9H, Neutrophils (%) (Auto) , Lymphocytes (%) (Auto) , Monocytes (%) (Auto) , Eosinophils (%) (Auto) , Basophils (%) (Auto) , Differential Total Cells Counted 100, Neutrophils % ( Manual) 83H, Lymphocytes % (Manual) 14L, Monocytes % (Manual) 1, Eosinophils % ( Manual) 2, Basophils % (Manual) 0, Band Neutrophils 0, Platelet Estimate DecreasedL, Platelet Morphology Normal, Hypochromasia 1+, Anisocytosis 1+, Target Cells 1+, Tear Drop Cells 1+, [place] Cells 1+, Schistocytes 1+ Current Medications Medications (Trade) Dose Ordered Sig/Sam Route PRN Reason Start Time Stop Time Status Last Admin Dose Admin Albuterol/ Ipratropium (DuoNeb 0.5-3(2.5)mg/3ml) 3 ml Q4HRT HHN 04/01/17 11:00 04/04/17 18:59 04/01/17 11:27 Amiodarone HCl (Cordarone) 200 mg DAILY ORAL 04/01/17 10:00 04/30/17 09:59 04/01/17 09:57 Aspirin (Ecotrin) 81 mg DAILY ORAL 04/01/17 10:00 04/30/17 09:59 04/01/17 09:57 Atorvastatin Calcium (Lipitor) 10 mg QHS ORAL 04/01/17 21:00 04/29/17 20:59 Azithromycin 250 mg/Dextrose 275 ml @ 275 mls/hr Q24H IV 04/01/17 10:00 04/06/17 10:01 04/01/17 11:01 Carvedilol (Coreg) 12.5 mg EVERY 12 HOURS ORAL 04/01/17 10:00 04/29/17 09:59 04/01/17 09:57 Ceftriaxone Sodium 1 gm/ Sodium Chloride 55 ml @ 110 mls/hr DAILY IVPB 04/01/17 09:30 04/07/17 08:59 04/01/17 09:58 Dextrose (Dextrose 50%) STAT PRN IV Hypoglycemia 04/01/17 09:30 05/01/17 09:29 Dextrose/ Electrolytes 1,000 ml @ 100 mls/hr Q10H IV 04/01/17 10:00 04/29/17 09:59 04/01/17 11:00 Donepezil HCl (Aricept) 10 mg DAILY ORAL 04/01/17 10:00 04/30/17 09:59 04/01/17 09:57 Insulin Aspart (NovoLOG) BEFORE MEALS AND HS SUBQ 04/01/17 11:30 04/29/17 20:59 Sitagliptin Phosphate (Januvia) 25 mg DAILY ORAL 04/01/17 10:00 04/30/17 09:59 Quinten Kent MD Apr 01, 2017 11:50
[2017-04-01] MEDS: sitaGLIPtin 25mg tab ORAL SCH (12:15)
--- NOTE | 2017-04-01 14:09 | Diagnostic Imaging Report ---
Indication: Dyspnea Comparison: 03/30/17 A single view chest radiograph was obtained. Findings: Patchy infiltrates suspected at the left lung base with silhouetting of the left hemidiaphragm. In addition pulmonary vascularity and interstitium appear diffusely increased in prominent. The heart is mildly enlarged. Impression: No significant change. CHF. Suspected pneumonia left lung base
--- NOTE | 2017-04-01 19:20 | Nephrology Progress Note ---
Assessment/Plan Assessment 1) MARÍA better 2) hypernatremia recovered Plan: Stop IV fluid Subjective Subjective She is looking more perky, creat is down to 1.1, NA is down to 145 Objective Objective Last 24 Hour Vital Signs Date Time Temp Pulse Resp B/P (MAP) Pulse Ox O2 Delivery O2 Flow Rate FiO2 04/01/17 16:05 77 20 98 Nasal Cannula 2.0 28 04/01/17 16:00 97.6 66 20 111/59 95 Nasal Cannula 2.0 04/01/17 15:55 68 20 98 Nasal Cannula 2.0 28 04/01/17 12:15 98/61 04/01/17 12:00 97.7 61 19 82/50 90 Nasal Cannula 2.0 04/01/17 11:38 68 20 100 Nasal Cannula 2.0 28 04/01/17 11:27 72 18 100 Nasal Cannula 2.0 28 04/01/17 09:57 75 125/79 04/01/17 08:00 97.8 75 19 125/79 97 Nasal Cannula 2.0 04/01/17 07:46 65 20 100 Nasal Cannula 2.0 28 04/01/17 07:36 66 20 100 Nasal Cannula 2.0 28 04/01/17 07:35 66 20 Nasal Cannula 2.0 04/01/17 07:34 Nasal Cannula 2.0 04/01/17 07:33 98 Nasal Cannula 2.0 04/01/17 04:00 98.6 71 18 117/71 97 Nasal Cannula 2.0 04/01/17 04:00 60 04/01/17 02:40 Nasal Cannula 2.0 28 04/01/17 02:40 Nasal Cannula 2.0 28 04/01/17 00:00 97.5 70 106/46 Room Air 04/01/17 00:00 66 03/31/17 23:06 71 16 98 Room Air 21 03/31/17 22:58 71 16 96 Room Air 21 03/31/17 22:58 21 03/31/17 21:00 69 105/48 03/31/17 20:00 71 03/31/17 20:00 97.7 69 20 105/48 91 Room Air Intake and Output 04/01/17 04/02/17 18:59 06:59 Intake Total 1720 ml 100 ml Balance 1720 ml 100 ml Intake Oral 590 ml IV Total 1130 ml 100 ml # Voids 3 # Bowel Movements 3 Laboratory Tests 03/31/17 21:50: Sodium Level 154H, Potassium Level 3.5, Chloride Level 123H, Carbon Dioxide Level 19L, Anion Gap 12, Blood Urea Nitrogen 27H, Creatinine 1.3, Estimat Glomerular Filtration Rate , Glucose Level 205#H, Calcium Level 8.6 04/01/17 07:00: Sodium Level 145, Potassium Level 3.3L, Chloride Level 116H, Carbon Dioxide Level 20L, Anion Gap 9, Blood Urea Nitrogen 20H, Creatinine 1.1, Estimat Glomerular Filtration Rate , Glucose Level 180H, Calcium Level 8.4L, White Blood Count 10.0, Red Blood Count 3.74L, Hemoglobin 8.9L, Hematocrit 29.7L, Mean Corpuscular Volume 79L, Mean Corpuscular Hemoglobin 23.8L, Mean Corpuscular Hemoglobin Concent 30.0L, Red Cell Distribution Width 16.0H, Platelet Count 84L, Mean Platelet Volume 13.9H, Neutrophils (%) (Auto) , Lymphocytes (%) (Auto) , Monocytes (%) (Auto) , Eosinophils (%) (Auto) , Basophils (%) (Auto) , Differential Total Cells Counted 100, Neutrophils % ( Manual) 83H, Lymphocytes % (Manual) 14L, Monocytes % (Manual) 1, Eosinophils % ( Manual) 2, Basophils % (Manual) 0, Band Neutrophils 0, Platelet Estimate DecreasedL, Platelet Morphology Normal, Hypochromasia 1+, Anisocytosis 1+, Target Cells 1+, Tear Drop Cells 1+, Mary Cells 1+, Schistocytes 1+ Height (Feet): 5 Height (Inches): 3.00 Weight (Pounds): 105 General Appearance: WD/WN, no apparent distress EENT: PERRL/EOMI Neck: non-tender, normal alignment Cardiovascular: normal rate, regular rhythm, no JVD Respiratory/Chest: lungs clear Abdomen: non tender 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
[2017-04-02] MEDS: Albuterol/Ipratropium 3ml neb HHN SCH ×6 (03:00→23:24)
[2017-04-02 03:44] VITALS: BP_SYST 133; BP_SYST 94; BP_DIAS 53; BP_DIAS 59
[2017-04-02] MEDS: NovoLOG Insulin Flexpen SUBQ SCH ×4 (06:10→21:00)
[2017-04-02 08:00] VITALS: BP 114/57
[2017-04-02] MEDS: Amiodarone 200mg tab ORAL SCH (08:30)
[2017-04-02] MEDS: sitaGLIPtin 25mg tab ORAL SCH (08:31)
[2017-04-02] MEDS: Carvedilol 12.5mg tab ORAL SCH ×2 (08:31→21:35)
[2017-04-02] MEDS: Donepezil 10mg tab ORAL SCH (08:31)
[2017-04-02] MEDS: Aspirin EC 81mg tab ORAL SCH (08:31)
[2017-04-02] MEDS: cefTRIAXone 1 GM in NS 55 ML IVPB SCH (08:32)
[2017-04-02 08:46] LABS: MEAN CORPUSCULAR HEMOGLOBIN 23.6 PG (27.0-31.0); MEAN CORPUSCULAR HGB CONC 29.7 G/DL (32.0-36.0); MEAN CORPUSCULAR VOLUME 79 FL (80-99); MEAN PLATELET VOLUME 10.8 FL (6.5-10.1); PLATELET COUNT 89 K/UL (150-450); RED BLOOD COUNT 4.12 M/UL (4.20-5.40); RED CELL DISTRIBUTION WIDTH 16.5 % (11.6-14.8); WHITE BLOOD COUNT 12.8 K/UL (4.8-10.8)
[2017-04-02 09:02] LABS: ANION GAP 10 (5-15); CALCIUM 8.7 MG/DL (8.5-10.1); CARBON DIOXIDE 20 MMOL/L (21-32); CHLORIDE 111 MMOL/L (98-107); POTASSIUM 4.5 MMOL/L (3.5-5.1); SODIUM 140 MMOL/L (136-145)
[2017-04-02 09:32] LABS: LYMPHOCYTES % (MANUAL) 21 % (20-45); NEUTROPHILS % (MANUAL) 75 % (45-75); PLATELET MORPHOLOGY NORMAL; TOTAL CELLS COUNTED 100
[2017-04-02 09:33] LABS: ACANTHOCYTES 1+; ANISOCYTOSIS 1+; BAND NEUTROPHILS % (MANUAL) 0 % (0-8); BASOPHILS % (MANUAL) 0 % (0-2); BURR CELLS 1+; EOSINOPHILS % (MANUAL) 0 % (0-3); HYPOCHROMASIA 1+; PLATELET ESTIMATE DECREASED; SCHISTOCYTES 1+; TEAR DROP CELLS 1+
--- NOTE | 2017-04-02 10:38 | Nephrology Progress Note ---
Assessment/Plan Assessment 1) MARÍA better 2) hyperatremia recovered Plan: continue current measures Subjective Subjective She is looking more perky, creat is down to 1.1, NA is down to 140 Objective Objective Last 24 Hour Vital Signs Date Time Temp Pulse Resp B/P (MAP) Pulse Ox O2 Delivery O2 Flow Rate FiO2 04/02/17 08:31 75 114/57 04/02/17 08:16 69 18 93 Nasal Cannula 2.0 28 04/02/17 08:07 64 16 92 Nasal Cannula 2.0 04/02/17 08:07 Nasal Cannula 2.0 28 04/02/17 08:07 92 Nasal Cannula 2.0 04/02/17 08:00 97.9 75 18 114/57 100 Nasal Cannula 2.0 04/02/17 03:44 99.7 67 20 94/53 92 Nasal Cannula 04/02/17 03:08 Nasal Cannula 2.0 04/02/17 03:08 Nasal Cannula 2.0 04/01/17 23:45 99.3 78 18 129/49 93 Nasal Cannula 5.0 04/01/17 23:12 Nasal Cannula 2.0 04/01/17 23:12 Nasal Cannula 2.0 04/01/17 21:00 71 110/56 04/01/17 19:35 71 20 96 Nasal Cannula 2.0 04/01/17 19:29 Nasal Cannula 2.0 04/01/17 19:29 95 Nasal Cannula 2.0 04/01/17 19:29 67 20 95 Nasal Cannula 2.0 04/01/17 19:28 98.2 79 18 110/56 94 Nasal Cannula 5.0 04/01/17 16:05 77 20 98 Nasal Cannula 2.0 04/01/17 16:00 97.6 66 20 111/59 95 Nasal Cannula 2.0 04/01/17 15:55 68 20 98 Nasal Cannula 2.0 28 04/01/17 12:15 98/61 04/01/17 12:00 97.7 61 19 82/50 90 Nasal Cannula 2.0 04/01/17 11:38 68 20 100 Nasal Cannula 2.0 28 04/01/17 11:27 72 18 100 Nasal Cannula 2.0 28 Laboratory Tests 04/02/17 07:00: White Blood Count 12.8H, Red Blood Count 4.12L, Hemoglobin 9.7L, Hematocrit 32.8L, Mean Corpuscular Volume 79L, Mean Corpuscular Hemoglobin 23.6L, Mean Corpuscular Hemoglobin Concent 29.7L, Red Cell Distribution Width 16.5H, Platelet Count 89L, Mean Platelet Volume 10.8H, Neutrophils (%) (Auto) , Lymphocytes (%) (Auto) , Monocytes (%) (Auto) , Eosinophils (%) (Auto) , Basophils (%) (Auto) , Differential Total Cells Counted 100, Neutrophils % ( Manual) 75, Lymphocytes % (Manual) 21, Monocytes % (Manual) 4, Eosinophils % ( Manual) 0, Basophils % (Manual) 0, Band Neutrophils 0, Platelet Estimate DecreasedL, Platelet Morphology Normal, Hypochromasia 1+, Anisocytosis 1+, Tear Drop Cells 1+, Pine Cells 1+, Acanthocytes 1+, Schistocytes 1+, Sodium Level 140 , Potassium Level 4.5, Chloride Level 111H, Carbon Dioxide Level 20L, Anion Gap 10, Blood Urea Nitrogen 16, Creatinine 1.0, Estimat Glomerular Filtration Rate , Glucose Level 87, Calcium Level 8.7 Height (Feet): 5 Height (Inches): 3.00 Weight (Pounds): 105 General Appearance: WD/WN, no apparent distress EENT: PERRL/EOMI, TMs normal Cardiovascular: normal rate, regular rhythm Respiratory/Chest: chest wall non-tender, lungs clear Abdomen: normal bowel sounds, non tender, soft Genitourinary/Rectal: normal genital exam, normal rectal exam Extremities: non-tender 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
[2017-04-02] MEDS: Azithromycin 250 MG in D5W 275 ML IV SCH (11:37)
[2017-04-02 11:47] VITALS: BP 112/69
[2017-04-02 15:34] VITALS: BP 96/53
--- NOTE | 2017-04-02 17:44 | Pulmonology Progress Note ---
Assessment/Plan Assessment/Plan 1. Dehydration w severe hypernatremia 2. Pneumonia w sepsis 3. Hyperlipidemia 4. History of stroke with right hemiparesis and aphasia. 5. Diabetes. 6. Hypertensive heart disease with chronic systolic and diastolic heart failure. cont abx disc w dtr, RN nephrology following negative io as tolerate BS control dc planning Subjective ROS Limited/Unobtainable: Yes Allergies: Coded Allergies: No Known Allergies (Verified , 06/03/10) Subjective awake no distress toelrating po with assistance does not get out of bed remains on FM at this time no fever noted Objective Last 24 Hour Vital Signs Date Time Temp Pulse Resp B/P (MAP) Pulse Ox O2 Delivery O2 Flow Rate FiO2 04/02/17 15:50 65 18 98 Nasal Cannula 2.0 04/02/17 15:41 67 18 99 Nasal Cannula 2.0 28 04/02/17 15:34 98.1 63 18 96/53 97 Nasal Cannula 2.0 04/02/17 11:47 97.9 68 19 112/69 91 Nasal Cannula 2.0 04/02/17 11:42 67 18 96 Nasal Cannula 2.0 04/02/17 11:35 65 16 97 Nasal Cannula 2.0 28 04/02/17 08:31 75 114/57 04/02/17 08:16 69 18 93 Nasal Cannula 2.0 28 04/02/17 08:07 64 16 92 Nasal Cannula 2.0 04/02/17 08:07 Nasal Cannula 2.0 28 04/02/17 08:07 92 Nasal Cannula 2.0 04/02/17 08:00 97.9 75 18 114/57 100 Nasal Cannula 2.0 04/02/17 03:44 99.7 67 20 94/53 92 Nasal Cannula 04/02/17 03:08 Nasal Cannula 2.0 04/02/17 03:08 Nasal Cannula 2.0 04/01/17 23:45 99.3 78 18 129/49 93 Nasal Cannula 5.0 04/01/17 23:12 Nasal Cannula 2.0 04/01/17 23:12 Nasal Cannula 2.0 04/01/17 21:00 71 110/56 04/01/17 19:35 71 20 96 Nasal Cannula 2.0 04/01/17 19:29 Nasal Cannula 2.0 04/01/17 19:29 95 Nasal Cannula 2.0 04/01/17 19:29 67 20 95 Nasal Cannula 2.0 28 04/01/17 19:28 98.2 79 18 110/56 94 Nasal Cannula 5.0 Intake and Output 04/02/17 04/03/17 19:00 07:00 Intake Total 240 ml Balance 240 ml Intake Oral 240 ml # Bowel Movements 1 General Appearance: WD/WN Respiratory/Chest: crackles/rales, rhonchi Cardiovascular: normal rate, regular rhythm Abdomen: soft, non tender, no organomegaly Extremities: other - edema Skin: no rash Neurologic/Psychiatric: alert, disoriented Microbiology Date/Time Source Procedure Growth Status 03/30/17 23:30 Nasal Nares Left MRSA Culture - Final NO METHICILLIN RESISTANT STAPH AUREUS... Complete 03/30/17 23:30 Sacral Wound Gram Stain - Final Complete 03/30/17 23:30 Wound Culture - Final Pseudomonas Aeruginosa Klebsiella Pneumoniae Complete Laboratory Tests 04/02/17 07:00: White Blood Count 12.8H, Red Blood Count 4.12L, Hemoglobin 9.7L, Hematocrit 32.8L, Mean Corpuscular Volume 79L, Mean Corpuscular Hemoglobin 23.6L, Mean Corpuscular Hemoglobin Concent 29.7L, Red Cell Distribution Width 16.5H, Platelet Count 89L, Mean Platelet Volume 10.8H, Neutrophils (%) (Auto) , Lymphocytes (%) (Auto) , Monocytes (%) (Auto) , Eosinophils (%) (Auto) , Basophils (%) (Auto) , Differential Total Cells Counted 100, Neutrophils % ( Manual) 75, Lymphocytes % (Manual) 21, Monocytes % (Manual) 4, Eosinophils % ( Manual) 0, Basophils % (Manual) 0, Band Neutrophils 0, Platelet Estimate DecreasedL, Platelet Morphology Normal, Hypochromasia 1+, Anisocytosis 1+, Tear Drop Cells 1+, Mary Cells 1+, Acanthocytes 1+, Schistocytes 1+, Sodium Level 140 , Potassium Level 4.5, Chloride Level 111H, Carbon Dioxide Level 20L, Anion Gap 10, Blood Urea Nitrogen 16, Creatinine 1.0, Estimat Glomerular Filtration Rate , Glucose Level 87, Calcium Level 8.7 Current Medications Medications (Trade) Dose Ordered Sig/Sam Route PRN Reason Start Time Stop Time Status Last Admin Dose Admin Albuterol/ Ipratropium (DuoNeb 0.5-3(2.5)mg/3ml) 3 ml Q4HRT HHN 04/01/17 11:00 04/04/17 18:59 04/02/17 15:41 Amiodarone HCl (Cordarone) 200 mg DAILY ORAL 04/01/17 10:00 04/30/17 09:59 04/02/17 08:30 Aspirin (Ecotrin) 81 mg DAILY ORAL 04/01/17 10:00 04/30/17 09:59 04/02/17 08:31 Atorvastatin Calcium (Lipitor) 10 mg QHS ORAL 04/01/17 21:00 04/29/17 20:59 04/01/17 21:15 Azithromycin 250 mg/Dextrose 275 ml @ 275 mls/hr Q24H IV 04/01/17 10:00 04/06/17 10:01 04/02/17 11:37 Carvedilol (Coreg) 12.5 mg EVERY 12 HOURS ORAL 04/01/17 10:00 04/29/17 09:59 04/02/17 08:31 Ceftriaxone Sodium 1 gm/ Sodium Chloride 55 ml @ 110 mls/hr DAILY IVPB 04/01/17 09:30 04/07/17 08:59 04/02/17 08:32 Dextrose (Dextrose 50%) STAT PRN IV Hypoglycemia 04/01/17 09:30 05/01/17 09:29 Donepezil HCl (Aricept) 10 mg DAILY ORAL 04/01/17 10:00 04/30/17 09:59 04/02/17 08:31 Insulin Aspart (NovoLOG) BEFORE MEALS AND HS SUBQ 04/01/17 11:30 04/29/17 20:59 04/02/17 16:57 Sitagliptin Phosphate (Januvia) 25 mg DAILY ORAL 04/01/17 10:00 04/30/17 09:59 04/02/17 08:31 ELLIE CORREA DO Apr 02, 2017 17:44
[2017-04-02 20:00] VITALS: BP 107/65
[2017-04-03] VITALS: BP 108/65
[2017-04-03] MEDS: Albuterol/Ipratropium 3ml neb HHN SCH ×6 (03:13→23:26)
[2017-04-03 04:00] VITALS: BP 130/70
[2017-04-03] MEDS: NovoLOG Insulin Flexpen SUBQ SCH ×4 (06:04→21:11)
--- NOTE | 2017-04-03 06:57 | Pulmonology Progress Note ---
Assessment/Plan Assessment/Plan 1. Dehydration w severe hypernatremia 2. Pneumonia w sepsis 3. Hyperlipidemia 4. History of stroke with right hemiparesis and aphasia. 5. Diabetes. 6. Hypertensive heart disease with chronic systolic and diastolic heart failure. cont abx disc w dtr, RN nephrology following negative io as tolerate BS control check am labs titrate o2 as tolerate cxr in am dc planning Subjective Constitutional: Reports: no symptoms HEENT: Repors: no symptoms Respiratory: Reports: no symptoms Cardiovascular: Reports: no symptoms Allergies: Coded Allergies: No Known Allergies (Verified , 06/03/10) Subjective awake, slept well last night no distress tolerating po with assistance does not get out of bed remains on FM at this time no fever noted Objective Last 24 Hour Vital Signs Date Time Temp Pulse Resp B/P (MAP) Pulse Ox O2 Delivery O2 Flow Rate FiO2 04/03/17 04:00 97.7 79 20 130/70 97 Room Air 04/03/17 03:20 62 16 98 Nasal Cannula 2.0 28 04/03/17 03:11 61 16 94 Nasal Cannula 2.0 28 04/03/17 00:00 97.9 64 18 108/65 97 Nasal Cannula 2.0 04/02/17 23:30 65 16 98 Nasal Cannula 2.0 28 04/02/17 23:22 64 16 96 Nasal Cannula 2.0 28 04/02/17 21:35 63 107/65 04/02/17 20:00 97.7 63 18 107/65 97 Room Air 04/02/17 19:25 68 18 97 Nasal Cannula 2.0 28 04/02/17 19:15 Nasal Cannula 2.0 28 04/02/17 19:15 68 16 98 Nasal Cannula 2.0 28 04/02/17 19:15 98 Nasal Cannula 2.0 28 04/02/17 15:50 65 18 98 Nasal Cannula 2.0 28 04/02/17 15:41 67 18 99 Nasal Cannula 2.0 28 04/02/17 15:34 98.1 63 18 96/53 97 Nasal Cannula 2.0 04/02/17 11:47 97.9 68 19 112/69 91 Nasal Cannula 2.0 04/02/17 11:42 67 18 96 Nasal Cannula 2.0 28 04/02/17 11:35 65 16 97 Nasal Cannula 2.0 28 04/02/17 08:31 75 114/57 04/02/17 08:16 69 18 93 Nasal Cannula 2.0 28 04/02/17 08:07 64 16 92 Nasal Cannula 2.0 28 04/02/17 08:07 Nasal Cannula 2.0 28 04/02/17 08:07 92 Nasal Cannula 2.0 04/02/17 08:00 97.9 75 18 114/57 100 Nasal Cannula 2.0 General Appearance: cachetic HEENT: atraumatic, anicteric Respiratory/Chest: rhonchi Cardiovascular: normal rate, regular rhythm Abdomen: soft, non tender, no organomegaly Extremities: no cyanosis Neurologic/Psychiatric: alert Lymphatic: no neck adenopathy Musculoskeletal: normal muscle bulk Laboratory Tests 04/02/17 07:00: White Blood Count 12.8H, Red Blood Count 4.12L, Hemoglobin 9.7L, Hematocrit 32.8L, Mean Corpuscular Volume 79L, Mean Corpuscular Hemoglobin 23.6L, Mean Corpuscular Hemoglobin Concent 29.7L, Red Cell Distribution Width 16.5H, Platelet Count 89L, Mean Platelet Volume 10.8H, Neutrophils (%) (Auto) , Lymphocytes (%) (Auto) , Monocytes (%) (Auto) , Eosinophils (%) (Auto) , Basophils (%) (Auto) , Differential Total Cells Counted 100, Neutrophils % ( Manual) 75, Lymphocytes % (Manual) 21, Monocytes % (Manual) 4, Eosinophils % ( Manual) 0, Basophils % (Manual) 0, Band Neutrophils 0, Platelet Estimate DecreasedL, Platelet Morphology Normal, Hypochromasia 1+, Anisocytosis 1+, Tear Drop Cells 1+, [place] Cells 1+, Acanthocytes 1+, Schistocytes 1+, Sodium Level 140 , Potassium Level 4.5, Chloride Level 111H, Carbon Dioxide Level 20L, Anion Gap 10, Blood Urea Nitrogen 16, Creatinine 1.0, Estimat Glomerular Filtration Rate , Glucose Level 87, Calcium Level 8.7 Current Medications Medications (Trade) Dose Ordered Sig/Sam Route PRN Reason Start Time Stop Time Status Last Admin Dose Admin Albuterol/ Ipratropium (DuoNeb 0.5-3(2.5)mg/3ml) 3 ml Q4HRT HHN 04/01/17 11:00 04/04/17 18:59 04/03/17 03:13 Amiodarone HCl (Cordarone) 200 mg DAILY ORAL 04/01/17 10:00 04/30/17 09:59 04/02/17 08:30 Aspirin (Ecotrin) 81 mg DAILY ORAL 04/01/17 10:00 04/30/17 09:59 04/02/17 08:31 Atorvastatin Calcium (Lipitor) 10 mg QHS ORAL 04/01/17 21:00 04/29/17 20:59 04/02/17 21:35 Azithromycin 250 mg/Dextrose 275 ml @ 275 mls/hr Q24H IV 04/01/17 10:00 04/06/17 10:01 04/02/17 11:37 Carvedilol (Coreg) 12.5 mg EVERY 12 HOURS ORAL 04/01/17 10:00 04/29/17 09:59 04/02/17 21:35 Ceftriaxone Sodium 1 gm/ Sodium Chloride 55 ml @ 110 mls/hr DAILY IVPB 04/01/17 09:30 04/07/17 08:59 04/02/17 08:32 Dextrose (Dextrose 50%) STAT PRN IV Hypoglycemia 04/01/17 09:30 05/01/17 09:29 Donepezil HCl (Aricept) 10 mg DAILY ORAL 04/01/17 10:00 04/30/17 09:59 04/02/17 08:31 Insulin Aspart (NovoLOG) BEFORE MEALS AND HS SUBQ 04/01/17 11:30 04/29/17 20:59 04/03/17 06:04 Sitagliptin Phosphate (Januvia) 25 mg DAILY ORAL 04/01/17 10:00 04/30/17 09:59 04/02/17 08:31 ELLIE CORREA DO Apr 03, 2017 06:57
[2017-04-03 08:22] VITALS: BP 108/61
[2017-04-03] MEDS: Amiodarone 200mg tab ORAL SCH (08:55)
[2017-04-03] MEDS: Aspirin EC 81mg tab ORAL SCH (08:55)
[2017-04-03] MEDS: Donepezil 10mg tab ORAL SCH (08:55)
[2017-04-03] MEDS: cefTRIAXone 1 GM in NS 55 ML IVPB SCH (08:55)
[2017-04-03] MEDS: sitaGLIPtin 25mg tab ORAL SCH (08:55)
[2017-04-03] MEDS: Carvedilol 12.5mg tab ORAL SCH ×2 (08:56→21:08)
[2017-04-03 09:19] LABS: CALCIUM 8.7 MG/DL (8.5-10.1); CHLORIDE 115 MMOL/L (98-107); SODIUM 144 MMOL/L (136-145)
[2017-04-03 09:35] LABS: ANION GAP 11 (5-15); CARBON DIOXIDE 18 MMOL/L (21-32); POTASSIUM 4.1 MMOL/L (3.5-5.1)
[2017-04-03] MEDS: Azithromycin 250 MG in D5W 275 ML IV SCH (10:37)
--- NOTE | 2017-04-03 10:43 | Nephrology Progress Note ---
Assessment/Plan Assessment 1) MARÍA better 2) hyperatremia recovered Plan: continue current measures Subjective Subjective She is looking more perky, creat is down to 1.0, NA is 144, eating well Objective Objective Last 24 Hour Vital Signs Date Time Temp Pulse Resp B/P (MAP) Pulse Ox O2 Delivery O2 Flow Rate FiO2 04/03/17 08:56 69 108/61 04/03/17 08:22 98.2 69 19 108/61 98 Nasal Cannula 2.0 04/03/17 07:51 66 16 98 Nasal Cannula 2.0 28 04/03/17 07:38 65 16 96 Nasal Cannula 2.0 28 04/03/17 07:38 Nasal Cannula 2.0 28 04/03/17 07:38 96 Nasal Cannula 2.0 28 04/03/17 04:00 97.7 79 20 130/70 97 Room Air 04/03/17 03:20 62 16 98 Nasal Cannula 2.0 28 04/03/17 03:11 61 16 94 Nasal Cannula 2.0 28 04/03/17 00:00 97.9 64 18 108/65 97 Nasal Cannula 2.0 04/02/17 23:30 65 16 98 Nasal Cannula 2.0 28 04/02/17 23:22 64 16 96 Nasal Cannula 2.0 28 04/02/17 21:35 63 107/65 04/02/17 20:00 97.7 63 18 107/65 97 Room Air 04/02/17 19:25 68 18 97 Nasal Cannula 2.0 28 04/02/17 19:15 Nasal Cannula 2.0 28 04/02/17 19:15 68 16 98 Nasal Cannula 2.0 28 04/02/17 19:15 98 Nasal Cannula 2.0 28 04/02/17 15:50 65 18 98 Nasal Cannula 2.0 28 04/02/17 15:41 67 18 99 Nasal Cannula 2.0 28 04/02/17 15:34 98.1 63 18 96/53 97 Nasal Cannula 2.0 04/02/17 11:47 97.9 68 19 112/69 91 Nasal Cannula 2.0 04/02/17 11:42 67 18 96 Nasal Cannula 2.0 28 04/02/17 11:35 65 16 97 Nasal Cannula 2.0 28 Intake and Output 04/03/17 04/04/17 19:00 07:00 Intake Total 180 ml Balance 180 ml Intake Oral 180 ml Laboratory Tests 04/03/17 07:02: Sodium Level 144, Potassium Level 4.1, Chloride Level 115H, Carbon Dioxide Level 18L, Anion Gap 11, Blood Urea Nitrogen 16, Creatinine 1.0, Estimat Glomerular Filtration Rate , Glucose Level 115H, Calcium Level 8.7 Height (Feet): 5 Height (Inches): 3.00 Weight (Pounds): 105 General Appearance: WD/WN, no apparent distress EENT: PERRL/EOMI Neck: non-tender, normal alignment Cardiovascular: normal rate, regular rhythm Respiratory/Chest: lungs clear Abdomen: normal bowel sounds, non tender 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
[2017-04-03 12:30] VITALS: BP 97/60
[2017-04-03 15:53] VITALS: BP 122/59
[2017-04-03 20:00] VITALS: BP 110/67
[2017-04-04] VITALS (7 sets, daily range): BP systolic 107–143; BP diastolic 51–63
[2017-04-04] MEDS: Albuterol/Ipratropium 3ml neb HHN SCH ×4 (03:45→15:10)
[2017-04-04] MEDS: NovoLOG Insulin Flexpen SUBQ SCH ×4 (05:54→23:23)
[2017-04-04 07:24] LABS: BASOPHILS % (AUTO) 0.5 % (0.0-2.0); EOSINOPHILS % (AUTO) 1.8 % (0.0-3.0); LYMPHOCYTES % (AUTO) 9.7 % (20.0-45.0); MEAN CORPUSCULAR HEMOGLOBIN 24.4 PG (27.0-31.0); MEAN CORPUSCULAR HGB CONC 31.5 G/DL (32.0-36.0); MEAN CORPUSCULAR VOLUME 78 FL (80-99); MEAN PLATELET VOLUME 12.3 FL (6.5-10.1); MONOCYTES % (AUTO) 3.5 % (1.0-10.0); NEUTROPHILS % (AUTO) 84.4 % (45.0-75.0); PLATELET COUNT 135 K/UL (150-450); RED BLOOD COUNT 3.45 M/UL (4.20-5.40); WHITE BLOOD COUNT 6.9 K/UL (4.8-10.8)
[2017-04-04 07:49] LABS: ANION GAP 13 (5-15); CALCIUM 8.8 MG/DL (8.5-10.1); CARBON DIOXIDE 16 MMOL/L (21-32); CHLORIDE 112 MMOL/L (98-107); CREATININE 0.9 MG/DL (0.55-1.30); POTASSIUM 3.7 MMOL/L (3.5-5.1); SODIUM 140 MMOL/L (136-145)
[2017-04-04] MEDS: cefTRIAXone 1 GM in NS 55 ML IVPB SCH (10:08)
[2017-04-04] MEDS: Aspirin EC 81mg tab ORAL SCH (10:26)
[2017-04-04] MEDS: Donepezil 10mg tab ORAL SCH (10:26)
[2017-04-04] MEDS: sitaGLIPtin 25mg tab ORAL SCH (10:26)
[2017-04-04] MEDS: Amiodarone 200mg tab ORAL SCH (10:36)
[2017-04-04] MEDS: Carvedilol 12.5mg tab ORAL SCH ×2 (10:37→20:54)
--- NOTE | 2017-04-04 10:44 | Diagnostic Imaging Report ---
Indication: COUGH Technique: One view of the chest Comparison: 04/01/2017 Findings: Left chest AICD is again demonstrated. Diffuse interstitial edema persists. There is increasing airspace consolidation in the left perihilar region. There is volume loss of the left lung base. There is probably a small amount of pleural fluid on the left. Heart size is borderline enlarged. Left hilar calcified granulomatous lymph nodes again demonstrated. Impression: Increasing airspace consolidation in the left perihilar region. Otherwise stable findings, as described
[2017-04-04] MEDS: Azithromycin 250 MG in D5W 275 ML IV SCH (10:58)
--- NOTE | 2017-04-04 12:03 | Pulmonology Progress Note ---
Assessment/Plan Assessment/Plan Assessment/Plan 1. Dehydration w severe hypernatremia; resolved 2. Pneumonia w sepsis 3. Hyperlipidemia 4. History of stroke with right hemiparesis and aphasia. 5. Diabetes. 6. Hypertensive heart disease with chronic systolic and diastolic heart failure. cont D5W cont abx nephrology following Subjective Interval Events: none Constitutional: Reports: no symptoms HEENT: Repors: no symptoms Respiratory: Reports: no symptoms Cardiovascular: Reports: no symptoms Gastrointestinal/Abdominal: Reports: no symptoms Allergies: Coded Allergies: No Known Allergies (Verified , 06/03/10) Objective Last 24 Hour Vital Signs Date Time Temp Pulse Resp B/P (MAP) Pulse Ox O2 Delivery O2 Flow Rate FiO2 04/04/17 11:20 72 16 99 Nasal Cannula 2.0 28 04/04/17 11:09 28 04/04/17 11:09 65 16 96 Nasal Cannula 2.0 28 04/04/17 10:37 67 109/60 04/04/17 08:00 96.4 63 20 109/63 98 Nasal Cannula 2.0 04/04/17 07:17 71 16 99 Nasal Cannula 2.0 28 04/04/17 07:10 Nasal Cannula 2.0 28 04/04/17 07:10 28 04/04/17 07:10 96 Nasal Cannula 2.0 28 04/04/17 07:10 65 16 96 Nasal Cannula 2.0 04/04/17 04:04 73 16 99 Nasal Cannula 2.0 28 04/04/17 03:46 28 04/04/17 03:45 63 16 97 Nasal Cannula 2.0 04/04/17 03:17 97.2 57 19 109/56 97 Room Air 04/04/17 00:00 97.9 64 18 120/63 97 Nasal Cannula 2.0 04/03/17 23:40 68 18 99 Nasal Cannula 2.0 28 04/03/17 23:25 28 04/03/17 23:25 66 18 99 Nasal Cannula 2.0 28 04/03/17 21:08 65 110/67 04/03/17 20:00 96.8 65 18 110/67 98 Nasal Cannula 2.0 04/03/17 19:40 61 16 98 Nasal Cannula 2.0 28 04/03/17 19:32 28 04/03/17 19:32 98 Nasal Cannula 2.0 04/03/17 19:32 62 16 98 Nasal Cannula 2.0 28 04/03/17 19:32 Nasal Cannula 2.0 28 04/03/17 15:54 69 16 99 Nasal Cannula 2.0 28 04/03/17 15:53 96.8 63 19 122/59 90 Nasal Cannula 2.0 04/03/17 15:45 62 16 98 Nasal Cannula 2.0 28 04/03/17 12:30 98.6 85 19 97/60 92 Nasal Cannula 3.0 General Appearance: no acute distress HEENT: normocephalic Respiratory/Chest: chest wall non-tender, normal breath sounds Cardiovascular: normal peripheral pulses Laboratory Tests 04/04/17 05:15: White Blood Count 6.9, Red Blood Count 3.45L, Hemoglobin 8.4L, Hematocrit 26.7L , Mean Corpuscular Volume 78L, Mean Corpuscular Hemoglobin 24.4L, Mean Corpuscular Hemoglobin Concent 31.5L, Red Cell Distribution Width 16.0H, Platelet Count 135L, Mean Platelet Volume 12.3H, Neutrophils (%) (Auto) 84.4H, Lymphocytes (%) (Auto) 9.7L, Monocytes (%) (Auto) 3.5, Eosinophils (%) (Auto) 1.8, Basophils (%) (Auto) 0.5, Sodium Level 140, Potassium Level 3.7, Chloride Level 112H, Carbon Dioxide Level 16L, Anion Gap 13, Blood Urea Nitrogen 14, Creatinine 0.9, Estimat Glomerular Filtration Rate , Glucose Level 142H, Calcium Level 8.8 Current Medications Medications (Trade) Dose Ordered Sig/Sam Route PRN Reason Start Time Stop Time Status Last Admin Dose Admin Albuterol/ Ipratropium (DuoNeb 0.5-3(2.5)mg/3ml) 3 ml Q4HRT HHN 04/01/17 11:00 04/04/17 18:59 04/04/17 11:08 Amiodarone HCl (Cordarone) 200 mg DAILY ORAL 04/05/17 09:00 05/05/17 08:59 Aspirin (Ecotrin) 81 mg DAILY ORAL 04/01/17 10:00 04/30/17 09:59 04/04/17 10:26 Atorvastatin Calcium (Lipitor) 10 mg QHS ORAL 04/01/17 21:00 04/29/17 20:59 04/03/17 21:07 Azithromycin 250 mg/Dextrose 275 ml @ 275 mls/hr Q24H IV 04/01/17 10:00 04/06/17 10:01 04/04/17 10:58 Carvedilol (Coreg) 12.5 mg EVERY 12 HOURS ORAL 04/04/17 21:00 05/04/17 20:59 Ceftriaxone Sodium 1 gm/ Sodium Chloride 55 ml @ 110 mls/hr DAILY IVPB 04/01/17 09:30 04/07/17 08:59 04/04/17 10:08 Dextrose (Dextrose 50%) STAT PRN IV Hypoglycemia 04/01/17 09:30 05/01/17 09:29 Donepezil HCl (Aricept) 10 mg DAILY ORAL 04/01/17 10:00 04/30/17 09:59 04/04/17 10:26 Insulin Aspart (NovoLOG) BEFORE MEALS AND HS SUBQ 04/01/17 11:30 04/29/17 20:59 04/04/17 05:54 Sitagliptin Phosphate (Januvia) 25 mg DAILY ORAL 04/01/17 10:00 04/30/17 09:59 04/04/17 10:26 Quinten Kent MD Apr 04, 2017 12:03
--- NOTE | 2017-04-04 12:24 | Nephrology Progress Note ---
Assessment/Plan Assessment 1) MARÍA better 2) hyperatremia recovered Plan: continue current measures Can be discharged from my stand point Subjective Subjective She is looking more perky, creat is down to 1.0, NA is 140 off of D5 W, eating well Objective Objective Last 24 Hour Vital Signs Date Time Temp Pulse Resp B/P (MAP) Pulse Ox O2 Delivery O2 Flow Rate FiO2 04/04/17 11:20 72 16 99 Nasal Cannula 2.0 28 04/04/17 11:09 28 04/04/17 11:09 65 16 96 Nasal Cannula 2.0 28 04/04/17 10:37 67 109/60 04/04/17 08:00 96.4 63 20 109/63 98 Nasal Cannula 2.0 04/04/17 07:17 71 16 99 Nasal Cannula 2.0 28 04/04/17 07:10 Nasal Cannula 2.0 28 04/04/17 07:10 28 04/04/17 07:10 96 Nasal Cannula 2.0 28 04/04/17 07:10 65 16 96 Nasal Cannula 2.0 04/04/17 04:04 73 16 99 Nasal Cannula 2.0 28 04/04/17 03:46 28 04/04/17 03:45 63 16 97 Nasal Cannula 2.0 28 04/04/17 03:17 97.2 57 19 109/56 97 Room Air 04/04/17 00:00 97.9 64 18 120/63 97 Nasal Cannula 2.0 04/03/17 23:40 68 18 99 Nasal Cannula 2.0 28 04/03/17 23:25 28 04/03/17 23:25 66 18 99 Nasal Cannula 2.0 04/03/17 21:08 65 110/67 04/03/17 20:00 96.8 65 18 110/67 98 Nasal Cannula 2.0 04/03/17 19:40 61 16 98 Nasal Cannula 2.0 28 04/03/17 19:32 28 04/03/17 19:32 98 Nasal Cannula 2.0 28 04/03/17 19:32 62 16 98 Nasal Cannula 2.0 28 04/03/17 19:32 Nasal Cannula 2.0 28 04/03/17 15:54 69 16 99 Nasal Cannula 2.0 28 04/03/17 15:53 96.8 63 19 122/59 90 Nasal Cannula 2.0 04/03/17 15:45 62 16 98 Nasal Cannula 2.0 28 04/03/17 12:30 98.6 85 19 97/60 92 Nasal Cannula 3.0 Laboratory Tests 04/04/17 05:15: White Blood Count 6.9, Red Blood Count 3.45L, Hemoglobin 8.4L, Hematocrit 26.7L , Mean Corpuscular Volume 78L, Mean Corpuscular Hemoglobin 24.4L, Mean Corpuscular Hemoglobin Concent 31.5L, Red Cell Distribution Width 16.0H, Platelet Count 135L, Mean Platelet Volume 12.3H, Neutrophils (%) (Auto) 84.4H, Lymphocytes (%) (Auto) 9.7L, Monocytes (%) (Auto) 3.5, Eosinophils (%) (Auto) 1.8, Basophils (%) (Auto) 0.5, Sodium Level 140, Potassium Level 3.7, Chloride Level 112H, Carbon Dioxide Level 16L, Anion Gap 13, Blood Urea Nitrogen 14, Creatinine 0.9, Estimat Glomerular Filtration Rate , Glucose Level 142H, Calcium Level 8.8 Height (Feet): 5 Height (Inches): 3.00 Weight (Pounds): 105 General Appearance: WD/WN, no apparent distress, alert EENT: PERRL/EOMI, normal ENT inspection Neck: non-tender, normal alignment Cardiovascular: normal rate, regular rhythm, no JVD Respiratory/Chest: lungs clear Abdomen: normal bowel sounds, non tender 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
[2017-04-05 04:12] VITALS: BP 133/70
[2017-04-05] MEDS: NovoLOG Insulin Flexpen SUBQ SCH ×3 (06:02→16:56)
[2017-04-05 07:13] LABS: MEAN CORPUSCULAR HEMOGLOBIN 24.6 PG (27.0-31.0); MEAN CORPUSCULAR HGB CONC 31.8 G/DL (32.0-36.0); MEAN CORPUSCULAR VOLUME 77 FL (80-99); PLATELET COUNT 212 K/UL (150-450); RED BLOOD COUNT 4.02 M/UL (4.20-5.40); RED CELL DISTRIBUTION WIDTH 16.5 % (11.6-14.8); WHITE BLOOD COUNT 7.6 K/UL (4.8-10.8)
[2017-04-05 07:52] LABS: ANION GAP 12 mmol/L (5-15); CALCIUM 9.1 MG/DL (8.5-10.1); CARBON DIOXIDE 17 MMOL/L (21-32); CHLORIDE 111 MMOL/L (98-107); CREATININE 0.9 MG/DL (0.55-1.30); SODIUM 140 MMOL/L (136-145)
[2017-04-05 08:20] VITALS: BP 116/58
[2017-04-05 08:21] VITALS: BP 100/58
[2017-04-05] MEDS: Donepezil 10mg tab ORAL SCH (08:27)
[2017-04-05] MEDS: Aspirin EC 81mg tab ORAL SCH (08:31)
[2017-04-05] MEDS: Carvedilol 12.5mg tab ORAL SCH (08:31)
[2017-04-05] MEDS: sitaGLIPtin 25mg tab ORAL SCH (08:32)
[2017-04-05 08:42] LABS: BAND NEUTROPHILS % (MANUAL) 4 % (0-8); BASOPHILS % (MANUAL) 0 % (0-2); EOSINOPHILS % (MANUAL) 1 % (0-3); LYMPHOCYTES % (MANUAL) 9 % (20-45); NEUTROPHILS % (MANUAL) 86 % (45-75); PLATELET ESTIMATE ADEQUATE; PLATELET MORPHOLOGY NORMAL; TOTAL CELLS COUNTED 100
[2017-04-05 08:43] LABS: ANISOCYTOSIS 1+
[2017-04-05 08:44] LABS: HYPOCHROMASIA 1+; MICROCYTES 1+; POIKILOCYTOSIS 1+
[2017-04-05 08:45] LABS: BURR CELLS 1+; SCHISTOCYTES OCCASIONAL
[2017-04-05] MEDS: cefTRIAXone 1 GM in NS 55 ML IVPB SCH (09:00)
[2017-04-05] MEDS ORDERED: Amiodarone 200mg tab ORAL SCH (09:00)
--- NOTE | 2017-04-05 09:08 | Pulmonology Progress Note ---
Assessment/Plan Assessment/Plan Assessment/Plan 1. Dehydration w severe hypernatremia; resolved 2. Pneumonia w sepsis 3. Hyperlipidemia 4. History of stroke with right hemiparesis and aphasia. 5. Diabetes. 6. Hypertensive heart disease with chronic systolic and diastolic heart failure. Change to PO abx Dc to snf Subjective Interval Events: Feeling better Constitutional: Reports: no symptoms HEENT: Repors: no symptoms Respiratory: Reports: no symptoms Cardiovascular: Reports: no symptoms Allergies: Coded Allergies: No Known Allergies (Verified , 06/03/10) Objective Last 24 Hour Vital Signs Date Time Temp Pulse Resp B/P (MAP) Pulse Ox O2 Delivery O2 Flow Rate FiO2 04/05/17 08:31 69 116/58 04/05/17 08:21 97.9 70 19 100/58 98 Room Air 04/05/17 08:20 97.9 69 18 116/58 98 Room Air 04/05/17 04:12 97.7 72 19 133/70 96 Room Air 04/04/17 23:53 97.7 71 18 143/60 96 Room Air 04/04/17 20:54 70 107/51 04/04/17 19:55 97.8 70 20 107/51 96 Room Air 04/04/17 16:00 97.0 66 18 115/51 96 Room Air 04/04/17 15:17 81 16 99 Nasal Cannula 2.0 28 04/04/17 15:06 65 16 96 Nasal Cannula 2.0 28 04/04/17 15:06 28 04/04/17 12:35 96.3 65 112/62 98 Nasal Cannula 2.0 04/04/17 11:20 72 16 99 Nasal Cannula 2.0 28 04/04/17 11:09 28 04/04/17 11:09 65 16 96 Nasal Cannula 2.0 28 04/04/17 10:37 67 109/60 Intake and Output 04/05/17 04/06/17 19:00 07:00 Intake Total 240 ml Balance 240 ml Intake Oral 240 ml # Voids 1 # Bowel Movements 1 General Appearance: no acute distress HEENT: normocephalic Respiratory/Chest: chest wall non-tender, lungs clear Cardiovascular: normal peripheral pulses, normal rate Abdomen: normal bowel sounds Laboratory Tests 04/05/17 05:10: White Blood Count 7.6, Red Blood Count 4.02L, Hemoglobin 9.9L, Hematocrit 31.2L , Mean Corpuscular Volume 77L, Mean Corpuscular Hemoglobin 24.6L, Mean Corpuscular Hemoglobin Concent 31.8L, Red Cell Distribution Width 16.5H, Platelet Count 212#, Mean Platelet Volume 9.0, Neutrophils (%) (Auto) , Lymphocytes (%) (Auto) , Monocytes (%) (Auto) , Eosinophils (%) (Auto) , Basophils (%) (Auto) , Differential Total Cells Counted 100, Neutrophils % ( Manual) 86H, Lymphocytes % (Manual) 9L, Monocytes % (Manual) 0L, Eosinophils % ( Manual) 1, Basophils % (Manual) 0, Band Neutrophils 4, Platelet Estimate Adequate, Platelet Morphology Normal, Hypochromasia 1+, Poikilocytosis 1+, Anisocytosis 1+, Microcytosis 1+, Cop[place] Cells 1+, Schistocytes Occasional, Sodium Level 140, Potassium Level 4.0, Chloride Level 111H, Carbon Dioxide Level 17L, Anion Gap 12, Blood Urea Nitrogen 15, Creatinine 0.9, Estimat Glomerular Filtration Rate , Glucose Level 184H, Calcium Level 9.1 Current Medications Medications (Trade) Dose Ordered Sig/Sam Route PRN Reason Start Time Stop Time Status Last Admin Dose Admin Amiodarone HCl (Cordarone) 200 mg DAILY ORAL 04/05/17 09:00 05/05/17 08:59 04/05/17 08:28 Aspirin (Ecotrin) 81 mg DAILY ORAL 04/01/17 10:00 04/30/17 09:59 04/05/17 08:31 Atorvastatin Calcium (Lipitor) 10 mg QHS ORAL 04/01/17 21:00 04/29/17 20:59 04/04/17 20:54 Azithromycin 250 mg/Dextrose 275 ml @ 275 mls/hr Q24H IV 04/01/17 10:00 04/06/17 10:01 04/04/17 10:58 Carvedilol (Coreg) 12.5 mg EVERY 12 HOURS ORAL 04/04/17 21:00 05/04/17 20:59 04/05/17 08:31 Ceftriaxone Sodium 1 gm/ Sodium Chloride 55 ml @ 110 mls/hr DAILY IVPB 04/01/17 09:30 04/07/17 08:59 04/04/17 10:08 Dextrose (Dextrose 50%) STAT PRN IV Hypoglycemia 04/01/17 09:30 05/01/17 09:29 Donepezil HCl (Aricept) 10 mg DAILY ORAL 04/01/17 10:00 04/30/17 09:59 04/05/17 08:27 Insulin Aspart (NovoLOG) BEFORE MEALS AND HS SUBQ 04/01/17 11:30 04/29/17 20:59 04/05/17 06:02 Sitagliptin Phosphate (Januvia) 25 mg DAILY ORAL 04/01/17 10:00 04/30/17 09:59 04/05/17 08:32 Quinten Kent MD Apr 05, 2017 09:08
[2017-04-05] MEDS ORDERED: AZITHROMYCIN500 MG ORAL (09:10)
[2017-04-05] MEDS: Azithromycin 250 MG in D5W 275 ML IV SCH (09:55)
[2017-04-05 11:50] VITALS: BP 102/51
--- NOTE | 2017-04-05 12:38 | Nephrology Progress Note ---
Assessment/Plan Problem List: (1) MARÍA (acute kidney injury) (2) UTI (urinary tract infection) (3) Dehydration (4) Hypernatremia Plan labs improved, encourage diet Subjective ROS Limited/Unobtainable: Yes Objective Objective Last 24 Hour Vital Signs Date Time Temp Pulse Resp B/P (MAP) Pulse Ox O2 Delivery O2 Flow Rate FiO2 04/05/17 11:50 97.9 64 17 102/51 99 Room Air 04/05/17 08:31 69 116/58 04/05/17 08:21 97.9 70 19 100/58 98 Room Air 04/05/17 08:20 97.9 69 18 116/58 98 Room Air 04/05/17 07:54 Nasal Cannula 2.0 28 04/05/17 07:53 98 Nasal Cannula 2.0 28 04/05/17 04:12 97.7 72 19 133/70 96 Room Air 04/04/17 23:53 97.7 71 18 143/60 96 Room Air 04/04/17 20:54 70 107/51 04/04/17 19:55 97.8 70 20 107/51 96 Room Air 04/04/17 16:00 97.0 66 18 115/51 96 Room Air 04/04/17 15:17 81 16 99 Nasal Cannula 2.0 28 04/04/17 15:06 65 16 96 Nasal Cannula 2.0 28 04/04/17 15:06 28 Intake and Output 04/05/17 04/06/17 19:00 07:00 Intake Total 240 ml Balance 240 ml Intake Oral 240 ml # Voids 1 # Bowel Movements 1 Laboratory Tests 04/05/17 05:10: White Blood Count 7.6, Red Blood Count 4.02L, Hemoglobin 9.9L, Hematocrit 31.2L , Mean Corpuscular Volume 77L, Mean Corpuscular Hemoglobin 24.6L, Mean Corpuscular Hemoglobin Concent 31.8L, Red Cell Distribution Width 16.5H, Platelet Count 212#, Mean Platelet Volume 9.0, Neutrophils (%) (Auto) , Lymphocytes (%) (Auto) , Monocytes (%) (Auto) , Eosinophils (%) (Auto) , Basophils (%) (Auto) , Differential Total Cells Counted 100, Neutrophils % ( Manual) 86H, Lymphocytes % (Manual) 9L, Monocytes % (Manual) 0L, Eosinophils % ( Manual) 1, Basophils % (Manual) 0, Band Neutrophils 4, Platelet Estimate Adequate, Platelet Morphology Normal, Hypochromasia 1+, Poikilocytosis 1+, Anisocytosis 1+, Microcytosis 1+, Almyra Cells 1+, Schistocytes Occasional, Sodium Level 140, Potassium Level 4.0, Chloride Level 111H, Carbon Dioxide Level 17L, Anion Gap 12, Blood Urea Nitrogen 15, Creatinine 0.9, Estimat Glomerular Filtration Rate , Glucose Level 184H, Calcium Level 9.1 Height (Feet): 5 Height (Inches): 3.00 Weight (Pounds): 105 General Appearance: no apparent distress, thin EENT: normal ENT inspection Neck: normal alignment Cardiovascular: regular rhythm Respiratory/Chest: lungs clear Abdomen: non tender, soft Extremities: no calf tenderness, other - no edema 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
[2017-04-05] MEDS ORDERED: Augmentin 875mg Tab ORAL SCH (14:00)
[2017-04-05 17:30] VITALS: BP 125/52
--- NOTE | 2017-04-07 14:33 | Discharge Summary ---
Discharge Summary Hospital Course Date of Admission Mar 30, 2017 at 13:58 Date of Discharge Apr 05, 2017 at 17:20 Admitting Diagnosis dehydration/sepsis HPI Liya Zuluaga is a 82 year old female who was admitted on Mar 30, 2017 at 13:58 for Dehydration, Sepsis Hospital Course [id number] Discharge Discharge Disposition Patient was discharged to home Discharge Diagnoses: Jaylin Mann NP Apr 07, 2017 14:33
--- NOTE | 2017-04-07 23:01 | Discharge Summary 2 SIG ---
DATE OF ADMISSION: 03/30/2017 DATE OF DISCHARGE: 04/05/2017 ATTENDING PHYSICIAN: Oswald Estrella M.D. TELECOMMUNICATIONS PROFESSIONAL: Alni James M.D. BRIEF HOSPITAL COURSE: The patient is an 82-year-old female, who was admitted from home due to weakness and poor p.o. intake. She also has history of congestive heart failure, diabetes, cardiac arrest with defibrillator, CVA with right-sided hemiparesis, and mostly bedbound. On evaluation at ED, blood work showed leukocytosis. Lactic acid was 4.5. Sodium was 164, creatinine 1.6, and BNP 6660. Urinalysis showed urine WBC 2 to 4 with urine RBC 2 to 4 and 1+ leukocyte esterase. Initial chest x-ray showed elevated left hemidiaphragm with resultant basilar atelectatic change. She was admitted to telemetry for sepsis and dehydration. The patient had evidence of hypernatremia with water deficit calculated at 4.8 liters. Acute kidney injury was due to prerenal state caused by dehydration. She was started on D5 water at 100 mL/h. Losartan was discontinued due to acute kidney injury. She was started on ceftriaxone and azithromycin. She came in with mid sacral stage III pressure ulcer, with unstageable pressure ulcers on the right lateral malleolus and left ear. She was provided wound care. Hypernatremia recovered with IV hydration and creatinine down trended. Urine culture showed growth of enterococcus. Wound culture with Klebsiella and Pseudomonas. Antibiotics were switched to p.o. and the patient was eventually discharged home. FINAL DIAGNOSES: 1. Dehydration with severe hypernatremia, resolved. 2. Pneumonia with sepsis. 3. Hyperlipidemia. 4. Stroke with right hemiparesis and aphasia. 5. Diabetes. 6. Hypertensive heart disease with chronic systolic and diastolic heart failure. 7. Urinary tract infection. 8. Acute kidney injury. 9. Dehydration. 10. Mid sacral stage III pressure ulcer with unstageable pressure ulcer to the right lateral malleolus and left ear, present on admission. DISPOSITION: The patient was discharged home. DISCHARGE MEDICATIONS: Refer to medication list. Continue with azithromycin for five more days. Quinten Kent M.D. I have been assigned to dictate discharge summary on this account and I was not involved in the patient's management. Jaylin Mann N.P. DR: LATIA JOB#: [id number] CC: ILANA
== END 2017-04-05 17:20 | disposition home or self-care (01) | DRG 871 ==
LOC: EMR 13:25 → 2E 13:58 → EDBEDREQ 15:41 → 2E 17:25 → 4W 04-01 08:54
DX: A41.9 Sepsis, unspecified organism (principal); J18.9 Pneumonia, unspecified organism; N17.9 Acute kidney failure, unspecified; E87.0 Hyperosmolality and hypernatremia; L89.153 Pressure ulcer of sacral region, stage 3; I11.0 Hypertensive heart disease with heart failure; I50.42 Chronic combined systolic (congestive) and diastolic (congestive) heart failure; F03.90 Unspecified dementia, unspecified severity, without behavioral disturbance, psychotic disturbance, mood disturbance, and anxiety; R13.10 Dysphagia, unspecified; L89.510 Pressure ulcer of right ankle, unstageable; I69.351 Hemiplegia and hemiparesis following cerebral infarction affecting right dominant side; Z86.74 Personal history of sudden cardiac arrest; E11.9 Type 2 diabetes mellitus without complications; E86.0 Dehydration; I69.320 Aphasia following cerebral infarction; E78.5 Hyperlipidemia, unspecified; Z95.810 Presence of automatic (implantable) cardiac defibrillator; G62.9 Polyneuropathy, unspecified; Z88.8 Allergy status to other drugs, medicaments and biological substances; Z66 Do not resuscitate; L89.810 Pressure ulcer of head, unstageable
CPT/HCPCS: 36415; 71010; 80048; 80053; 81003; 82550; 82553; 82962; 83605; 83880; 84484; 85007; 85025; 87040; 87070; 87081; 87086; 87181; 87205; 93005; 94640; 94664; 94760; J1815; J7620; J8499

== ENCOUNTER 2017-04-11 11:37 | Outpatient (RCR) | payer MEDICARE, OTHER ==
[~2017-04-11 11:37] MED LIST changes: +AZITHROMYCIN500 MG ORAL; +JANUVIA50 MG ORAL; +LIPITOR10 MG ORAL; +METFORMIN HCL500 M1 ORAL; +METFORMIN HCL850 M1 ORAL; +POTASSIUM20 MEQ/15 PO
== END 2017-04-19 | disposition home or self-care (01) ==
LOC: WCC 11:37
DX: L89.153 Pressure ulcer of sacral region, stage 3 (principal); L89.893 Pressure ulcer of other site, stage 3; Z87.891 Personal history of nicotine dependence; E11.9 Type 2 diabetes mellitus without complications; I10 Essential (primary) hypertension; G81.91 Hemiplegia, unspecified affecting right dominant side; I25.2 Old myocardial infarction; Z79.84 Long term (current) use of oral hypoglycemic drugs
CPT/HCPCS: 11042

== ENCOUNTER 2017-04-27 13:30 | Outpatient (RCR) | payer MEDICARE, OTHER ==
[~2017-04-27] VITALS: Ht 157.5 cm; Wt 52.2 kg
[2017-04-27] MEDS ORDERED: METFORMIN HCL850 M1 ORAL (21:26)
[2017-04-28] MEDS ORDERED: AMIODARONE HCL200 MG PO (01:43)
[2017-05-05] MEDS ORDERED: Lidocaine HCl 2% Jelly 5ml Tube TOPIC ONE (11:30)
[2017-05-09] MEDS ORDERED: VIT B 12 PO (00:55)
== END 2017-05-19 | disposition home or self-care (01) ==
LOC: WCC 13:30
DX: L89.153 Pressure ulcer of sacral region, stage 3 (principal); L89.893 Pressure ulcer of other site, stage 3; E11.9 Type 2 diabetes mellitus without complications; I10 Essential (primary) hypertension; Z86.73 Personal history of transient ischemic attack (TIA), and cerebral infarction without residual deficits; I25.2 Old myocardial infarction; Z79.84 Long term (current) use of oral hypoglycemic drugs
CPT/HCPCS: 11043; G0463

== ENCOUNTER 2017-04-27 14:47 | Inpatient (IN) | payer MEDICARE, OTHER ==
[~2017-04-27] VITALS: Ht 157.5 cm; Wt 43.1 kg
[2017-04-27] MEDS ORDERED: Albuterol ud Inhalation HHN ONE (15:15)
--- NOTE | 2017-04-27 15:21 | Emergency Room Report ---
History of Present Illness General Chief Complaint: Upper Respiratory Illness Source: Patient Present Illness HPI The patient is an 82-year-old female brought in by family after increased congestion and difficulty breathing. Patient noted have prior history of CVA with right-sided weakness. Per family member patient had been having increased weakness as well as difficulty breathing with cough. The patient is currently wheelchair-bound. She is nonambulatory. She reportedly had not been having fever. The cough was somewhat worse yesterday. The patient prior history of diabetes as well as heart disease. The patient had recent hospitalization which was noted to be hypernatremic. Allergies: Coded Allergies: No Known Allergies (Verified , 06/03/10) Patient History Past Medical History: see triage record Reviewed Nursing Documentation: PMH: Agreed, PSxH: Agreed Nursing Documentation-PMH Past Medical History: No History, Except For Hx Cardiac Problems: Yes - Cardiac arrest Hx Hypertension: Yes Hx Pacemaker: Yes - AICD Hx Asthma: Yes Hx COPD: No Hx Diabetes: Yes Hx Cancer: No Hx Gastrointestinal Problems: Yes - gallstones Hx Dialysis: No Hx Neurological Problems: Yes Hx Cerebrovascular Accident: Yes Hx Dementia: Yes Hx Seizures: No Hx Peripheral Neuropathy: Yes Hx Concentration Difficulty: Yes Hx Speech Problem: Yes - garbled Hx Weakness: Yes Review of Systems All Other Systems: limited - by mental status Physical Exam Vital Signs Date Time Temp Pulse Resp B/P (MAP) Pulse Ox O2 Delivery O2 Flow Rate FiO2 04/27/17 14:55 97.3 67 20 128/55 97 Room Air General Appearance: alert, cachetic, Chronically Ill Eyes: bilateral eye other - disconjugate gaze ENT: dry mucus membranes Neck: limited range of motion Respiratory: normal breath sounds Cardiovascular #1: normal peripheral pulses, regular rate, rhythm Gastrointestinal: normal bowel sounds, non tender, soft, no mass Neurologic: alert Skin: normal inspection, no rash, other - decubitus ulcer Medical Decision Making Diagnostic Impression: Primary Impression: Generalized weakness Additional Impressions: Hyperkalemia Fluid overload ER Course Patient presented for generalized weakness. Differential diagnosis included was not limited to anemia, urinary tract infection, electrolyte abnormality, hypothyroidism, myocardial infarction, myasthenia gravis, dehydration, among others. Patient was given IV Lasix. Dr. Oswald Estrella was contacted for inpatient management due to patient's generalized weakness as well as hyperkalemia. she be admitted to telemetry for cardiac monitoring.The patient was noted to have elevated lactic acid level. There is no definite evidence of infection at this time. Labs Test 04/27/17 16:15 04/27/17 17:39 04/27/17 20:05 White Blood Count 6.4 K/UL (4.8-10.8) Red Blood Count 4.99 M/UL (4.20-5.40) Hemoglobin 11.5 G/DL (12.0-16.0) Hematocrit 40.3 % (37.0-47.0) Mean Corpuscular Volume 81 FL (80-99) Mean Corpuscular Hemoglobin 23.1 PG (27.0-31.0) Mean Corpuscular Hemoglobin Concent 28.7 G/DL (32.0-36.0) Red Cell Distribution Width 18.4 % (11.6-14.8) Platelet Count 299 K/UL (150-450) Mean Platelet Volume 7.5 FL (6.5-10.1) Neutrophils (%) (Auto) 71.1 % (45.0-75.0) Lymphocytes (%) (Auto) 23.0 % (20.0-45.0) Monocytes (%) (Auto) 4.0 % (1.0-10.0) Eosinophils (%) (Auto) 0.7 % (0.0-3.0) Basophils (%) (Auto) 1.3 % (0.0-2.0) Sodium Level 133 MMOL/L (136-145) Potassium Level 5.8 MMOL/L (3.5-5.1) Chloride Level 101 MMOL/L (98-107) Carbon Dioxide Level 25 MMOL/L (21-32) Anion Gap 7 mmol/L (5-15) Blood Urea Nitrogen 9 mg/dL (7-18) Creatinine 1.0 MG/DL (0.55-1.30) Estimat Glomerular Filtration Rate mL/min (>60) Glucose Level 149 MG/DL (74-106) Calcium Level 9.7 MG/DL (8.5-10.1) Total Bilirubin 0.4 MG/DL (0.2-1.0) Aspartate Amino Transf (AST/SGOT) 41 U/L (15-37) Alanine Aminotransferase (ALT/SGPT) 35 U/L (12-78) Alkaline Phosphatase 98 U/L (46-116) Total Creatine Kinase 100 U/L (26-308) Creatine Kinase MB 3.5 NG/ML (0.0-3.6) Creatine Kinase MB Relative Index 3.5 Troponin I 0.005 ng/mL (0.000-0.056) Pro-B-Type Natriuretic Peptide 2098 pg/mL (0-125) Total Protein 7.4 G/DL (6.4-8.2) Albumin 2.7 G/DL (3.4-5.0) Globulin 4.7 g/dL Albumin/Globulin Ratio 0.6 (1.0-2.7) Lactic Acid Level 4.30 mmol/L (0.66-2.22) Last Vital Signs Date Time Temp Pulse Resp B/P (MAP) Pulse Ox O2 Delivery O2 Flow Rate FiO2 04/27/17 14:55 97.3 67 20 128/55 97 Room Air Status: unchanged Disposition: ADMITTED INPATIENT Condition: Serious UlisesNestor Apr 27, 2017 15:20
--- NOTE | 2017-04-27 16:39 | Diagnostic Imaging Report ---
Indication: Dyspnea Comparison: 04/04/17 A single view chest radiograph was obtained. Findings: Left infiltrate has significantly improved. Heart is enlarged. Lung lines are low currently. Bilateral calcifications are noted in the mikala. Pacemaker and generalized osteopenia noted. Impression: No acute disease
[2017-04-27 16:41] LABS: BASOPHILS % (AUTO) 1.3 % (0.0-2.0); EOSINOPHILS % (AUTO) 0.7 % (0.0-3.0); MEAN CORPUSCULAR HEMOGLOBIN 23.1 PG (27.0-31.0); MEAN CORPUSCULAR HGB CONC 28.7 G/DL (32.0-36.0); MEAN CORPUSCULAR VOLUME 81 FL (80-99); MEAN PLATELET VOLUME 7.5 FL (6.5-10.1); NEUTROPHILS % (AUTO) 71.1 % (45.0-75.0); PLATELET COUNT 299 K/UL (150-450); RED BLOOD COUNT 4.99 M/UL (4.20-5.40); RED CELL DISTRIBUTION WIDTH 18.4 % (11.6-14.8); WHITE BLOOD COUNT 6.4 K/UL (4.8-10.8)
[2017-04-27 17:28] VITALS: BP 141/62
[2017-04-27 17:49] LABS: REFLEX LACTIC ACID YES OR NO YES
[2017-04-27 18:15] LABS: ALANINE AMINOTRANSFERASE 35 U/L (12-78); ALBUMIN/GLOBULIN RATIO 0.6 (1.0-2.7); ANION GAP 7 mmol/L (5-15); ASPARTATE AMINO TRANSFERASE 41 U/L (15-37); CALCIUM 9.7 MG/DL (8.5-10.1); CARBON DIOXIDE 25 MMOL/L (21-32); CHLORIDE 101 MMOL/L (98-107); CKMB 3.5 NG/ML (0.0-3.6); POTASSIUM 5.8 MMOL/L (3.5-5.1); SODIUM 133 MMOL/L (136-145); TOTAL PROTEIN 7.4 G/DL (6.4-8.2)
[2017-04-27 19:28] VITALS: BP 118/56
[2017-04-27] MEDS ORDERED: METFORMIN HCL850 M1 ORAL (21:26)
[2017-04-27 21:28] VITALS: BP 121/62
[2017-04-27 22:45] VITALS: BP_SYST 115; BP_SYST 139; BP_DIAS 69; BP_DIAS 70
[2017-04-28] MEDS ORDERED: AMIODARONE HCL200 MG PO (01:43)
[2017-04-28 04:00] VITALS: BP 109/55
[2017-04-28 05:39] LABS: BASOPHILS % (AUTO) 1.7 % (0.0-2.0); LYMPHOCYTES % (AUTO) 32.5 % (20.0-45.0); MEAN CORPUSCULAR HEMOGLOBIN 21.9 PG (27.0-31.0); MEAN CORPUSCULAR HGB CONC 27.4 G/DL (32.0-36.0); MEAN CORPUSCULAR VOLUME 80 FL (80-99); MEAN PLATELET VOLUME 6.4 FL (6.5-10.1); MONOCYTES % (AUTO) 7.2 % (1.0-10.0); NEUTROPHILS % (AUTO) 57.6 % (45.0-75.0); PLATELET COUNT 268 K/UL (150-450); RED BLOOD COUNT 4.55 M/UL (4.20-5.40); RED CELL DISTRIBUTION WIDTH 17.7 % (11.6-14.8); WHITE BLOOD COUNT 5.7 K/UL (4.8-10.8)
[2017-04-28 06:10] LABS: ALANINE AMINOTRANSFERASE 33 U/L (12-78); ALBUMIN/GLOBULIN RATIO 0.6 (1.0-2.7); ANION GAP 9 mmol/L (5-15); ASPARTATE AMINO TRANSFERASE 28 U/L (15-37); CALCIUM 9.6 MG/DL (8.5-10.1); CARBON DIOXIDE 27 MMOL/L (21-32); CHLORIDE 100 MMOL/L (98-107); CREATININE 1.1 MG/DL (0.55-1.30); POTASSIUM 4.9 MMOL/L (3.5-5.1); SODIUM 136 MMOL/L (136-145); TOTAL PROTEIN 6.7 G/DL (6.4-8.2)
[2017-04-28 06:19] LABS: THYROID STIMULATING HORMONE 4.538 uiU/mL (0.360-3.740)
[2017-04-28 08:20] VITALS: BP 127/66
--- NOTE | 2017-04-28 09:03 | History & Physical ---
History and Physical History & Physicial History & Physicial HISTORY OF PRESENT ILLNESS: This elderly woman was admitted from home due to weakness and poor intake. She has high K and elevated lactate although there is no evident sepsis. Admission was arranged. PAST MEDICAL HISTORY: Cardiac arrest in April 2012 with placement of a defibrillator and pacemaker. 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 Admitted for pneumonia recently. She has dysphagia. ALLERGIES: NESHA INHIBITOR CAUSES COUGH. VACCINES. SHE HAD PNEUMOCOCCAL VACCINE IN 2008 AND FLU VACCINE ANNUALLY. MEDICATIONS: Reviewed and reconciled. PAST SURGICAL HISTORY: Pacemaker, defibrillator and cholecystectomy. SOCIAL HISTORY: She lives at home with the daughter. She does not smoke. She has a high school education and is retired. REVIEW OF SYSTEMS: Cannot be obtained. The patient is aphasic. PHYSICAL EXAMINATION: GENERAL: The patient is alert and responsive, smiling at me, mumbling VITAL SIGNS: The vital signs are stable. There is no fever. HEENT: The head is normocephalic. NECK: No jugular vein distention or lymphadenopathy. CHEST: Few rales CARDIAC: Rhythm is regular. ABDOMEN: Soft and nontender. Liver and spleen are not enlarged. EXTREMITIES: No clubbing, cyanosis, or edema. CHEST: An implanted defibrillator is noted in the left anterior axillary region. LABORATORY DATA: Reviewed. K 5.8 IMPRESSIONS: 1. Hyperkalemia 2. No signs of sepsis 3. Hyperlipidemia 4. History of stroke with right hemiparesis and aphasia. 5. Diabetes. 6. Hypertensive heart disease with chronic systolic and diastolic heart failure. PLAN: The patient will be admitted to inpatient. We will give IVF. Nephrology was notified. She will be DNR per prior discussion with the daughter. EDWARDO HOOKS MICHAEL Apr 28, 2017 09:03
[2017-04-28 11:28] VITALS: BP 116/66
[2017-04-28 12:00] VITALS: BP 124/66
--- NOTE | 2017-04-28 13:24 | Wound Care Consultation ---
Wound Assessment Wound Assessment #1: Wound Number: 1 Wound Present on Admission: Yes New Wound: No Status Change of Wound: No Wound Location Body Site Modif: mid Wound Location Body Site: other - sacrococcygeal Wound Type: pressure ulcer Bryce Test: Does not Bryce Pressure Ulcer Stage: III Wound Thickness: Full Thickness Wound Length: 2.5 Wound Width: 2.0 Wound Depth: 0.5 Percent of Wound [place]/Red: 100 Wound Drainage Description: Serosanguineous Wound Drainage Amount: Moderate Wound Drainage Odor: None/Absent Tissue Surrounding Wound: Macerated Wound General Appearance: Reddened, Draining Wound Assessment #2: Wound Number: 2 Wound Present on Admission: Yes New Wound: No Status Change of Wound: No Wound Location Body Site Modif: left Wound Location Body Site: ear Wound Type: pressure ulcer Bryce Test: Does not Bryce Pressure Ulcer Stage: Unstageable Wound Thickness: Full Thickness Wound Length: 2.0 Wound Width: 0.8 Wound Depth: utd Percent of Wound [place]/Red: 30 Percent of Wound Bed Yellow/Wh: 70 Wound Drainage Description: Serosanguineous Wound Drainage Amount: Moderate Wound Drainage Odor: None/Absent Tissue Surrounding Wound: Macerated Wound General Appearance: Reddened - yellow, Draining Wound Assessment #3: Wound Number: 3 Wound Present on Admission: Yes New Wound: No Status Change of Wound: No Wound Location Body Site Modif: right, medial Wound Location Body Site: malleolus/ankle Wound Type: pressure ulcer Bryce Test: Does not Bryce Pressure Ulcer Stage: Deep Tissue Injury Wound Thickness: Full Thickness Wound Length: 2.0 Wound Width: 2.0 Wound Depth: utd Percent of Wound Purple/Maroon: 100 Wound Drainage Amount: None Wound Drainage Odor: None/Absent Tissue Surrounding Wound: Intact Wound General Appearance: Asymptomatic Wound Comment #1 Sacrococcygeal stage III pressure ulcer #2 Left ear unstageable pressure ulcer #3 Right medial malleolus DTI pressure ulcer #4 Right buttock full thickness scar tissue Recommendation -Sacrococcygeal stage III pressure ulcer Cleanse with saline, pat dry, apply Triad cream, cover with Biatain silicone daily and PRN soiled/dislodged -Left ear unstageable pressure ulcer Cleanse with saline, pat dry, apply Therahoney gel to wound bed, cover with Biatain silicone drg daily and PRN soiled/dislodged -Local wound care per protocol for DTI pressure ulcer -Low air loss mattress -Offload both heels -Heel protector on both heels -Optimize nutrition -Keep clean and dry -Turn and reposition -Assess and f/u accordingly for any changes CHRISTINE RDZ RN Apr 28, 2017 13:24
[2017-04-28 16:00] VITALS: BP 124/66
--- NOTE | 2017-04-28 16:30 | Consultation ---
DATE OF CONSULTATION: 04/28/2017 NEPHROLOGY CONSULTATION CONSULTING PHYSICIAN: Shashank Dockery M.D. REFERRING PHYSICIAN: Oswald Estrella M.D. REASON FOR CONSULTATION: Hyperkalemia. HISTORY OF PRESENT ILLNESS: The patient is an 82-year-old lady who has had a prior CVA, right hemiplegia, aphasia, and weakness. She apparently was brought into the hospital after family noted that she was weak and possibly more congested. She was found to have hyperkalemia. There is a history of cardiac arrest in April 2012 with placement of defibrillator and pacemaker. She has had multiple strokes, aphasia, depression, hypertension, and congestive heart failure with diastolic dysfunction. She has had gallstone pancreatitis in the past as well as pneumonia. PAST SURGICAL HISTORY: Pacemaker, defibrillator, and cholecystectomy. ALLERGIES: NESHA inhibitors cause cough. MEDICATIONS: Prior to admission medications are reviewed on the computer. The patient is unable to give a history. SYSTEM REVIEW: The patient is unable. She is aphasic. PHYSICAL EXAMINATION: GENERAL: The patient is lying in bed, chronically ill-appearing, thin, and weak. VITAL SIGNS: Temperature is 97.5, pulse 71, respirations 19, blood pressure 127/66, and O2 saturation 97% on three liters. HEAD, EYES, EARS, NOSE, AND THROAT: Sclerae are nonicteric. Ocular motion intact in all directions. Oral mucosa moist. NECK: No adenopathy. LUNGS: Clear. HEART: Regular rhythm. I hear no murmur at this time. ABDOMEN: Soft. I am unable to feel liver or spleen. EXTREMITIES: Show severe muscle wasting. There is contraction in the right elbow and right arm. NEUROLOGIC: She is alert, but aphasic and dysarthric. There is a right hemiparesis and also some left-sided weakness as well and possibly bilateral VIIth nerve weakness. LABORATORY DATA: Pertinent labs show white count of 6.4, hemoglobin 11.5, repeat hemoglobin 9.9. Sodium 133, potassium 5.8, repeat 136 and 4.9 with a BUN 11 and creatinine of 1.1. Lactic acid serially 3.1 and 4.3. Serum albumin 2.5. TSH 4.5. No urinalysis is available. BNP is 2098. Troponin 0.005. There is no urinalysis available. IMPRESSION: 1. Hyperkalemia secondary to exogenous KCl. 2. Chronic diastolic congestive heart failure. 3. Moderate protein-calorie malnutrition. 4. Adult onset diabetes. 5. Chronic kidney disease likely stage 3. 6. Possible mild dehydration. 7. History of arrhythmias. 8. History of permanent pacemaker defibrillator. 9. History of prior cardiac arrest. PLAN: We will observe the patient without potassium. She also was on losartan at home, which be given, but we need to watch her electrolytes serially. I will check urinalysis. She has elevated lactate of uncertain etiology and this will be followed up. Shashank Dockery M.D. DR: NITA JOB#: [id number] CC:
[2017-04-28] MEDS: Donepezil 10mg tab ORAL SCH (16:54)
[2017-04-28] MEDS: sitaGLIPtin 50mg tab ORAL SCH (16:54)
[2017-04-28] MEDS: Amiodarone 200mg tab ORAL SCH (16:55)
[2017-04-28] MEDS: Aspirin EC 81mg tab ORAL SCH (16:55)
[2017-04-28] MEDS: Losartan 50mg tab ORAL SCH (16:56)
[2017-04-28] MEDS: metFORMIN 500mg tab ORAL SCH (17:02)
[2017-04-28 20:00] VITALS: BP 104/55
[2017-04-28] MEDS: Carvedilol 12.5mg tab ORAL SCH (21:26)
[2017-04-29] VITALS: BP 132/62
[2017-04-29 04:00] VITALS: BP 107/62
[2017-04-29 05:56] LABS: APPEARANCE,URINE CLEAR; KETONES,URINE NEGATIVE (NEGATIVE); LEUKOCYTE ESTERASE ,URINE 1+ (NEGATIVE); NITRITE,URINE NEGATIVE (NEGATIVE); PH,URINE 5 (4.5-8.0); PROTEIN,URINE NEGATIVE (NEGATIVE); UROBILINOGEN,URINE NORMAL MG/DL (0.0-1.0)
[2017-04-29 06:29] LABS: BACTERIA,URINE MODERATE /HPF; RBC,URINE 0-2 /HPF (0 - 2); SQUAMOUS EPITHELIAL CELL,UR FEW /LPF (NONE/OCC); YEAST,URINE FEW /HPF
--- NOTE | 2017-04-29 07:59 | Nephrology Progress Note ---
Assessment/Plan Problem List: (1) Malnutrition of moderate degree (2) CHF (congestive heart failure) (3) Hyperkalemia (4) Generalized weakness Plan off po kcl, repeat lab, continue rx chf Subjective ROS Limited/Unobtainable: Yes Objective Objective Last 24 Hour Vital Signs Date Time Temp Pulse Resp B/P (MAP) Pulse Ox O2 Delivery O2 Flow Rate FiO2 04/29/17 04:00 97.9 69 20 107/62 99 Room Air 04/29/17 04:00 61 04/29/17 00:00 97.9 75 18 132/62 98 Room Air 04/29/17 00:00 74 04/28/17 21:26 68 108/66 04/28/17 20:00 73 04/28/17 20:00 97.9 92 20 104/55 98 Room Air 04/28/17 16:56 124/66 04/28/17 16:00 91 04/28/17 16:00 97.6 72 18 124/66 99 Room Air 04/28/17 12:00 97.6 72 18 124/66 Room Air 04/28/17 12:00 71 04/28/17 11:28 97.6 69 19 116/66 Room Air 04/28/17 08:20 97.5 71 19 127/66 Nasal Cannula 3.0 04/28/17 08:00 75 Laboratory Tests 04/29/17 05:40: Urine Color Pale yellow, Urine Appearance Clear, Urine pH 5, Urine Specific [place] 1.010, Urine Protein Negative, Urine Glucose (UA) Negative, Urine Ketones Negative, Urine Occult Blood Negative, Urine Nitrite Negative, Urine Bilirubin Negative, Urine Urobilinogen Normal, Urine Leukocyte Esterase 1+H, Urine RBC 0-2, Urine WBC 5-10H, Urine Squamous Epithelial Cells Few, Urine Bacteria ModerateH, Urine Yeast FewH Height (Feet): 5 Height (Inches): 2.00 Weight (Pounds): 95 General Appearance: thin EENT: normal ENT inspection Neck: normal alignment Cardiovascular: normal rate, regular rhythm Respiratory/Chest: lungs clear, decreased breath sounds Abdomen: non tender Extremities: other - no edema, muscle wasting Neurologic: motor weakness, aphasia ALONA SANZ Apr 29, 2017 07:59
[2017-04-29] MEDS: Aspirin EC 81mg tab ORAL SCH (08:41)
[2017-04-29] MEDS: sitaGLIPtin 50mg tab ORAL SCH (08:41)
[2017-04-29] MEDS: metFORMIN 500mg tab ORAL SCH ×2 (08:42→17:27)
[2017-04-29] MEDS: Donepezil 10mg tab ORAL SCH (08:42)
[2017-04-29] MEDS: Amiodarone 200mg tab ORAL SCH (08:44)
[2017-04-29] MEDS ORDERED: Losartan 50mg tab ORAL SCH (09:00)
[2017-04-29] MEDS: Losartan 50mg tab ORAL SCH (09:00)
[2017-04-29] MEDS: Carvedilol 12.5mg tab ORAL SCH (09:00)
[2017-04-29] MEDS ORDERED: Aspirin EC 81mg tab ORAL SCH (09:00)
[2017-04-29] MEDS ORDERED: sitaGLIPtin 50mg tab ORAL SCH (09:00)
[2017-04-29] MEDS ORDERED: Amiodarone 200mg tab ORAL SCH (09:00)
[2017-04-29] MEDS ORDERED: Donepezil 10mg tab ORAL SCH (09:00)
[2017-04-29 09:23] VITALS: BP 108/67
[2017-04-29 09:25] VITALS: BP 108/67
[2017-04-29 10:07] LABS: BASOPHILS % (AUTO) 1.1 % (0.0-2.0); EOSINOPHILS % (AUTO) 0.1 % (0.0-3.0); LYMPHOCYTES % (AUTO) 22.7 % (20.0-45.0); MEAN CORPUSCULAR HEMOGLOBIN 22.7 PG (27.0-31.0); MEAN CORPUSCULAR HGB CONC 28.1 G/DL (32.0-36.0); MEAN CORPUSCULAR VOLUME 81 FL (80-99); MEAN PLATELET VOLUME 7.3 FL (6.5-10.1); MONOCYTES % (AUTO) 4.6 % (1.0-10.0); NEUTROPHILS % (AUTO) 71.5 % (45.0-75.0); PLATELET COUNT 278 K/UL (150-450); RED BLOOD COUNT 4.36 M/UL (4.20-5.40)
[2017-04-29 10:38] LABS: REFLEX LACTIC ACID YES OR NO YES
[2017-04-29 10:54] LABS: ALANINE AMINOTRANSFERASE 28 U/L (12-78); ALBUMIN/GLOBULIN RATIO 0.6 (1.0-2.7); ANION GAP 7 mmol/L (5-15); ASPARTATE AMINO TRANSFERASE 26 U/L (15-37); CALCIUM 9.1 MG/DL (8.5-10.1); CARBON DIOXIDE 25 MMOL/L (21-32); CHLORIDE 102 MMOL/L (98-107); CREATININE 1.3 MG/DL (0.55-1.30); POTASSIUM 4.5 MMOL/L (3.5-5.1); SODIUM 134 MMOL/L (136-145); TOTAL PROTEIN 6.7 G/DL (6.4-8.2)
[2017-04-29 12:00] VITALS: BP 125/70
[2017-04-29 16:00] VITALS: BP 110/70
--- NOTE | 2017-05-02 09:37 | Discharge Summary ---
Discharge Summary Hospital Course Date of Admission Apr 27, 2017 at 18:50 Date of Discharge Apr 29, 2017 at 18:30 Admitting Diagnosis generalized weakness hyperkalemia, chf HPI Liya Zuluaga is a 82 year old female who was admitted on Apr 27, 2017 at 18:50 for Generalized Weakness Hyperkalemia, Congestive Hospital Course dc summary #[id number] Discharge Medications Continued Medications: Amiodarone Hcl* (Cordarone*) 200 Mg Tablet 200 MG ORAL DAILY Aspirin Ec* (Aspirin Ec*) 81 Mg Tablet.dr 81 MG ORAL DAILY, TAB Atorvastatin Calcium* (Lipitor*) 10 Mg Tablet 10 MG ORAL DAILY, TAB Carvedilol (Coreg) 12.5 Mg Tab 12.5 MG ORAL EVERY 12 HOURS, TAB Donepezil Hcl* (Aricept*) 10 Mg Tablet 10 MG ORAL DAILY, TAB Ipratropium/Albuterol Sulfate (DuoNeb 0.5-3(2.5)mg/3ml) 3 Ml Ampul.neb 3 ML HHN Q4HRT, #1 EA Losartan Potassium (Losartan Potassium) 100 Mg Tablet 100 MG ORAL DAILY, TAB Metformin Hcl* (Metformin Hcl*) 500 Mg Tablet 500 MG ORAL TWICE A DAY, TAB Multivitamins* (Multivitamins*) 1 Each Tablet 1 TAB ORAL DAILY, TAB 0 Refills Sitagliptin (Januvia) 50 Mg Tablet 50 MG ORAL DAILY, TAB Discharge Condition Upon Discharge: stable Discharge Disposition Patient was discharged to Home with Home Health(06) Discharge Diagnoses: Discharge Instructions Discharge Instructions Special Instructions I have been assigned to complete a D/C Summary on this account. I was not involved in the patient management Hiwot Goldberg NP (Vanchtein) May 02, 2017 09:37
--- NOTE | 2017-05-02 19:46 | Discharge Summary 2 SIG ---
DATE OF ADMISSION: 04/27/2017 DATE OF DISCHARGE: 04/29/2017 REASON FOR ADMISSION: 82-year-old female with past medical history significant for cardiac arrest in 2011 with placement of defibrillator and pacemaker, diabetes, neuropathy, hyperlipidemia, chronic anemia, dementia, multiple CVAs with right hemiparesis and aphasia, depression, hypertension, congestive heart failure with diastolic dysfunction, dysphagia, presented from home due to the weakness and poor oral intake. The patient had elevated potassium -5.8. Lactic acid -3.1. No evidence of sepsis. The patient had no fever. No leukocytosis. Vital signs in the emergency department were stable. Hemoglobin and hematocrit stable. Pro BNP- 2098. Troponin was negative. The patient was admitted for further management for hyperkalemia and generalized weakness. HOSPITAL STAY: The patient was admitted to telemetry floor. Nephrology consult was requested. Per personnel training officer, hyperkalemia was likely due to the exogenous intake pf potassium. No further potassium supplement. Losartan placed on hold as well at that time. Renal parameters and electrolytes were closely monitored. Potassium trending down without additional potassium supplement. Prior to discharge, potassium -4.5. Losartan resumed. Lactic acid trended down. Renal parameters remained stable. Barrel Bander closely followed. Treatment for congestive heart failure was resumed. No evidence of acute congestive heart failure exacerbation. No evidence of sepsis. Supplemental oxygen provided as needed to keep saturation above 92%. Pulmonary toilet was on the standby as needed. Nephrotoxics were avoided. Urine culture revealed Enterococcus faecalis. Blood culture were negative. The patient was treated on previous admission for Enterococci. At this time, no fever, no leukocytosis, likely asymptomatic bacteriuria. No symptoms.were observed or reported. No treatment was initiated. Wound care nurse seen the patient for present on admission sacrococcyx decubitus stage III and left ear unstable pressure ulcer. Wound care provided as per wound care nurse recommendation. Blood sugar was managed with current anti-glycemic regimen and was stable. Documentation Improvement Specialist seen and evaluated the patient. Nutritional supplements such as Glucerna and James were added to román as recommended by dietary. The patient was cleared for discharge home with home health services. FINAL DIAGNOSES: 1. Hyperkalemia, secondary to exogenous potassium intake 2. Chronic diastolic congestive heart failure. 3. Diabetes mellitus. 4. Chronic kidney disease stage 3. 5. Moderate protein-calorie malnutrition. 6. Pacemaker defibrillator. 7. History of cardiac arrest. 8. Sacrococcyx decubitus stage III, present on admission. 9. Left ear un-stageable pressure ulcer, present on admission. DISCHARGE MEDICATIONS: See medication reconciliation list. DISCHARGE INSTRUCTIONS: The patient was discharged home. Followup with home health services and primary medical doctor . Oswald Estrella M.D. I have been assigned to dictate discharge summary on this account and I was not involved in the patient's management. Hiwot HaasWhite Plains HospitalNigel N.PGeorgiana DR: Robin JOB#: [id number] CC: ILANA
--- NOTE | 2017-05-08 16:27 | Cardiology Report ---
APPROVED REPORT EKG Measurement Heart [id number] Atrial pacing Anteroseptal infarct, age undetermined Abnormal ECG
--- NOTE | 2017-05-09 10:43 | Cardiology Report ---
APPROVED REPORT EXAM: Two-dimensional and M-mode echocardiogram with Doppler and color Doppler. INDICATION CVA/TIA M-Mode DIMENSIONS IVSd1.1 (0.7-1.1cm)Left Atrium (MM)4.6 (1.6-4.0cm) LVDd4.3 (3.5-5.6cm)Aortic Root3.6 (2.0-3.7cm) PWd1.1 (0.7-1.1cm)Aortic Cusp Exc.1.8 (1.5-2.0cm) LVDs3.2 (2.5-4.0cm) PWs1.4 cm Other Information Technically limited study due to pt's position. Normal left ventricular chamber size. Asynchronous septal motion may be due to pacemaker, and all other remaining segments seem to have normal wall motion to extent visualized. Left ventricular ejection fraction estimated to be 55%. Mild left ventricular hypertrophy. No evidence of pericardial effusion. Mild left atrial enlargement. Right cardiac chamber sizes are within normal limits. Focal aortic valve sclerosis with adequate cusp excursion. Thickened mitral valve leaflets with normal excursion. Mitral annulus and aortic root calcification. Pulmonic valve not well visualized. Normal tricuspid valve structure. IVC at normal size and collapsing with respiration. Pacemaker wire present in the right side chambers. A color flow and spectral Doppler study was performed and revealed: Trace aortic insufficiency. Mild mitral regurgitation. Mitral inflow velocities indicates possible pseudo normalization pattern implying moderately elevated left atrial pressure (Grade II). Moderate tricuspid regurgitation. Tricuspid systolic velocities suggests peak right ventricular systolic pressure of 50mmHg, consistent with moderate pulmonary hypertension. No pulmonic regurgitation present.
== END 2017-04-29 18:30 | disposition home health service (06) | DRG 640 ==
LOC: EMR 16:00 → 2E 18:50 → EDBEDREQ 21:19 → 2E 22:20
DX: E87.5 Hyperkalemia (principal); L89.153 Pressure ulcer of sacral region, stage 3; E44.0 Moderate protein-calorie malnutrition; I13.0 Hypertensive heart and chronic kidney disease with heart failure and stage 1 through stage 4 chronic kidney disease, or unspecified chronic kidney disease; F03.90 Unspecified dementia, unspecified severity, without behavioral disturbance, psychotic disturbance, mood disturbance, and anxiety; I50.32 Chronic diastolic (congestive) heart failure; R13.10 Dysphagia, unspecified; L89.890 Pressure ulcer of other site, unstageable; E11.22 Type 2 diabetes mellitus with diabetic chronic kidney disease; I69.351 Hemiplegia and hemiparesis following cerebral infarction affecting right dominant side; Z68.1 Body mass index [BMI] 19.9 or less, adult; E78.5 Hyperlipidemia, unspecified; I69.320 Aphasia following cerebral infarction; Z86.74 Personal history of sudden cardiac arrest; Z95.810 Presence of automatic (implantable) cardiac defibrillator; G62.9 Polyneuropathy, unspecified; F32.9 Major depressive disorder, single episode, unspecified; Z88.8 Allergy status to other drugs, medicaments and biological substances; Z66 Do not resuscitate; N18.3 Chronic kidney disease, stage 3 (moderate)
CPT/HCPCS: 36415; 71010; 80053; 81003; 82550; 82553; 83605; 83880; 84443; 84484; 85025; 86850; 86900; 86901; 87040; 87070; 87081; 87086; 87181; 87205; 92610; 93005; 93306; 94640; 94664; 99285

== ENCOUNTER 2017-05-08 15:25 | Inpatient (IN) | payer MEDICARE, OTHER ==
[~2017-05-08] VITALS: Ht 157.5 cm; Wt 42.2 kg
[~2017-05-08 15:25] MED LIST changes: +AMIODARONE HCL200 MG PO
--- NOTE | 2017-05-08 15:38 | Emergency Room Report ---
History of Present Illness General Chief Complaint: To Be Triaged Source: Patient, Medical Record Present Illness HPI 82-year-old female walked in with history of prior CVA, known right-sided hemiparesthesia, a fish and chronic weakness was recently admitted earlier this month for hyperkalemia. History of pacemaker and defibrillator, depression, hypertension, congestive heart failure and gallstone pancreatitis. Presents today with cough and weakness.daughter endorses that patient "more lethargic than usual." The patient herself has no complaints. patient not providing any history of present illness, just says "yes" to any question. recent weakness for hyperkalemia as cause of weakness likely due to exogenous potassium. Allergies: Coded Allergies: No Known Allergies (Verified , 06/03/10) Patient History Past Medical History: other - see HPI Past Surgical History: other - See hpi Pertinent Family History: none Social History: Denies: smoking, alcohol use, drug use Now: No Immunizations: UTD Reviewed Nursing Documentation: PMH: Agreed, PSxH: Agreed Nursing Documentation-PMH Hx Cardiac Problems: Yes - Cardiac arrest Hx Hypertension: Yes Hx Pacemaker: Yes - AICD Hx Asthma: Yes Hx COPD: No Hx Diabetes: Yes Hx Cancer: No Hx Gastrointestinal Problems: Yes Hx Dialysis: No Hx Neurological Problems: Yes Hx Cerebrovascular Accident: Yes Hx Dementia: Yes Hx Seizures: No Hx Peripheral Neuropathy: Yes Hx Concentration Difficulty: Yes Hx Speech Problem: Yes - garbled Hx Weakness: Yes Review of Systems All Other Systems: negative except mentioned in HPI Physical Exam Sp02 EP Interpretation: reviewed, normal General Appearance: normal inspection, well appearing, no apparent distress, alert, GCS 15, non-toxic, other - Elderly, weak appearing Head: normocephalic, atraumatic Eyes: bilateral eye PERRL, bilateral eye EOMI ENT: normal ENT inspection, hearing grossly normal, normal voice Neck: normal inspection, full range of motion, supple, no bony tend Respiratory: normal inspection, lungs clear, normal breath sounds, no respiratory distress, no retraction, no wheezing Cardiovascular #1: regular rate, rhythm, no edema Gastrointestinal: normal inspection, normal bowel sounds, non tender, soft, no guarding, no hernia Genitourinary: no CVA tenderness Musculoskeletal: normal inspection, back normal, normal range of motion, Zaida' s Sign negative Neurologic: normal inspection, alert, oriented x3, responsive, pig handler III-XII nml as tested, speech normal Psychiatric: normal inspection, judgement/insight normal, mood/affect normal Skin: normal inspection, normal color, other - Sacral decubitus ulcer Medical Decision Making Diagnostic Impression: Primary Impression: Hyperkalemia Additional Impression: UTI (urinary tract infection) Qualified Codes: N30.01 - Acute cystitis with hematuria ER Course 82-year-old female walked in with weakness found to have hyperkalemia 5.5 and a UTI. Vital signs stable, afebrile, nonseptic appearing. EKG shows inferior and lateral T wave inversions, not seen previously on EKG or commented on previously in the EMR. however troponin is within normal limits. possible reason for new acute T wave inversions his hyperkalemia. No other ischemia seen on EKG. Patient given empiric Rocephin for UTI, and one albuterol 4 hyperkalemia. Given low glucose, too risky to give dextrose and insulin at this point. Tele Admit Dr Estrella EKG Diagnostic Results Rate: normal Rhythm: NSR ST Segments: other - TWI in inferior and lateral leads ASA given to the pt in ED: No Rhythm Strip Diag. Results EP Interpretation: yes Rate: 66 Rhythm: NSR, no PVC's, no ectopy Chest X-Ray Diagnostic Results Chest X-Ray Diagnostic Results : Chest X-Ray Ordered: Yes Indication: Other - Weakness EP Interpretation: Yes Interpretation: no consolidation, no effusion, no pneumothorax, other - + pacemaker Impression: Other - unchanged from previous Electronically Signed by: Dr Edwardo Malcolm MD Status: improved Disposition: ADMITTED INPATIENT Condition: Serious EDWARDO MALCOLM M.D. May 08, 2017 15:38
[2017-05-08 15:50] VITALS: BP 125/47
[2017-05-08 16:26] LABS: APPEARANCE,URINE CLOUDY; KETONES,URINE NEGATIVE (NEGATIVE); LEUKOCYTE ESTERASE ,URINE 3+ (NEGATIVE); NITRITE,URINE NEGATIVE (NEGATIVE); PH,URINE 8 (4.5-8.0); PROTEIN,URINE 2+ (NEGATIVE); UROBILINOGEN,URINE NORMAL MG/DL (0.0-1.0)
[2017-05-08 16:30] LABS: ANION GAP 12 mmol/L (5-15); CALCIUM 9.7 MG/DL (8.5-10.1); CARBON DIOXIDE 19 MMOL/L (21-32); CHLORIDE 105 MMOL/L (98-107); CREATININE 1.3 MG/DL (0.55-1.30); POTASSIUM 5.5 MMOL/L (3.5-5.1); SODIUM 136 MMOL/L (136-145)
[2017-05-08 16:43] LABS: ALANINE AMINOTRANSFERASE 59 U/L (12-78); ALBUMIN/GLOBULIN RATIO 0.6 (1.0-2.7); ASPARTATE AMINO TRANSFERASE 26 U/L (15-37); CKMB 2.7 NG/ML (0.0-3.6); TOTAL PROTEIN 6.9 G/DL (6.4-8.2)
[2017-05-08 16:46] LABS: RBC,URINE 0-2 /HPF (0 - 2); SQUAMOUS EPITHELIAL CELL,UR MODERATE /LPF (NONE/OCC); WBC,URINE TNTC /HPF (0 - 2)
[2017-05-08 16:47] LABS: BACTERIA,URINE MANY /HPF
[2017-05-08 16:53] LABS: BASOPHILS % (AUTO) 0.9 % (0.0-2.0); EOSINOPHILS % (AUTO) 0.7 % (0.0-3.0); LYMPHOCYTES % (AUTO) 17.3 % (20.0-45.0); MEAN CORPUSCULAR HEMOGLOBIN 23.2 PG (27.0-31.0); MEAN CORPUSCULAR HGB CONC 29.6 G/DL (32.0-36.0); MEAN CORPUSCULAR VOLUME 78 FL (80-99); MEAN PLATELET VOLUME 5.9 FL (6.5-10.1); MONOCYTES % (AUTO) 4.3 % (1.0-10.0); NEUTROPHILS % (AUTO) 76.9 % (45.0-75.0); PLATELET COUNT 262 K/UL (150-450); RED BLOOD COUNT 4.14 M/UL (4.20-5.40); RED CELL DISTRIBUTION WIDTH 16.4 % (11.6-14.8); WHITE BLOOD COUNT 9.5 K/UL (4.8-10.8)
[2017-05-08] MEDS ORDERED: cefTRIAXone 1 GM in NS 55 ML IVPB ONE (17:15)
[2017-05-08] MEDS ORDERED: Albuterol ud Inhalation HHN ONE ×2 (17:15→17:45)
[2017-05-08 17:21] VITALS: BP 126/49
[2017-05-08 19:08] VITALS: BP 110/45
[2017-05-08 20:10] VITALS: BP 107/40
[2017-05-08 21:10] VITALS: BP 99/41
[2017-05-08 21:39] VITALS: BP 110/40
[2017-05-08] MEDS ORDERED: D5NS 1,000 ML IV SCH (22:20)
[2017-05-08] MEDS: D5NS 1,000 ML IV SCH (23:00)
[2017-05-09] MEDS ORDERED: VIT B 12 PO (00:55)
[2017-05-09 08:00] VITALS: BP 141/70
[2017-05-09] MEDS ORDERED: sitaGLIPtin 25mg tab ORAL SCH (09:00)
--- NOTE | 2017-05-09 09:14 | Diagnostic Imaging Report ---
Indication: Cough Technique: One view of the chest Comparison: 06/27/2016 Findings: Patient is rotated to the right. There is a left chest AICD again demonstrated. There is some atelectasis in the left perihilar region and left lung base, minimally at the right lung base. Lungs and pleural spaces otherwise clear. Granulomas calcifications are seen in the aortopulmonary window. Impression: Perihilar, bibasilar atelectatic changes. No acute process otherwise Evidence of old granulomatous disease AICD
[2017-05-09 09:55] LABS: BASOPHILS % (AUTO) 0.9 % (0.0-2.0); LYMPHOCYTES % (AUTO) 12.8 % (20.0-45.0); MEAN CORPUSCULAR HEMOGLOBIN 24.2 PG (27.0-31.0); MEAN CORPUSCULAR HGB CONC 31.1 G/DL (32.0-36.0); MEAN CORPUSCULAR VOLUME 78 FL (80-99); MEAN PLATELET VOLUME 8.1 FL (6.5-10.1); MONOCYTES % (AUTO) 5.4 % (1.0-10.0); NEUTROPHILS % (AUTO) 79.8 % (45.0-75.0); PLATELET COUNT 269 K/UL (150-450); RED BLOOD COUNT 3.85 M/UL (4.20-5.40); RED CELL DISTRIBUTION WIDTH 16.4 % (11.6-14.8); WHITE BLOOD COUNT 7.9 K/UL (4.8-10.8)
[2017-05-09] MEDS: Amiodarone 200mg tab ORAL SCH (09:55)
[2017-05-09] MEDS: Losartan 50mg tab ORAL SCH (09:55)
[2017-05-09] MEDS: Donepezil 10mg tab ORAL SCH (09:55)
[2017-05-09] MEDS: Aspirin EC 81mg tab ORAL SCH (09:55)
[2017-05-09] MEDS: Carvedilol 12.5mg tab ORAL SCH ×2 (09:55→21:21)
[2017-05-09] MEDS: D5NS 1,000 ML IV SCH (09:56)
[2017-05-09 10:24] LABS: ALANINE AMINOTRANSFERASE 51 U/L (12-78); ALBUMIN/GLOBULIN RATIO 0.6 (1.0-2.7); ANION GAP 9 mmol/L (5-15); ASPARTATE AMINO TRANSFERASE 28 U/L (15-37); CALCIUM 9.4 MG/DL (8.5-10.1); CARBON DIOXIDE 21 MMOL/L (21-32); CHLORIDE 107 MMOL/L (98-107); CREATININE 0.9 MG/DL (0.55-1.30); POTASSIUM 5.6 MMOL/L (3.5-5.1); SODIUM 137 MMOL/L (136-145); TOTAL PROTEIN 6.1 G/DL (6.4-8.2)
[2017-05-09] MEDS ORDERED: Sodium Polystyrene Sulfonate 15gm Powder ORAL ONE (11:00)
[2017-05-09] MEDS: Albuterol/Ipratropium 3ml neb HHN SCH ×4 (11:01→23:23)
--- NOTE | 2017-05-09 11:43 | Wound Care Consultation ---
Wound Assessment Wound Assessment #1: Wound Number: 1 Wound Present on Admission: Yes New Wound: No Status Change of Wound: No Wound Location Body Site Modif: right Wound Location Body Site: elbow Wound Type: scar Bryce Test: Does not Bryce Wound Thickness: Full Thickness Wound Length: 1.0 Wound Width: 1.0 Percent of Wound Emmet/Red: 100 Wound Drainage Amount: None Wound Drainage Odor: None/Absent Tissue Surrounding Wound: Intact Wound General Appearance: Open to air, Clean/Dry Wound Assessment #2: Wound Number: 2 Wound Present on Admission: Yes New Wound: No Status Change of Wound: No Wound Location Body Site Modif: right Wound Location Body Site: heel Wound Type: scar Bryce Test: Does not Bryce Wound Thickness: Full Thickness Wound Length: 1.0 Wound Width: 1.0 Percent of Wound Emmet/Red: 100 Wound Drainage Amount: None Wound Drainage Odor: None/Absent Tissue Surrounding Wound: Intact Wound General Appearance: Open to air, Clean/Dry Wound Assessment #3: Wound Number: 3 Wound Present on Admission: Yes New Wound: No Status Change of Wound: No Wound Location Body Site Modif: right, medial Wound Location Body Site: malleolus/ankle Wound Type: pressure ulcer Bryce Test: Does not Bryce Pressure Ulcer Stage: Unstageable Wound Thickness: Full Thickness Wound Length: 0.5 - center of wound Wound Width: 0.5 - center of wound Wound Depth: utd Percent of Wound Black/Brown: 100 Other Colors Identified: noted surrouding skin 2.0cmx 2.0cm dark brown/ maroon in color Wound Drainage Amount: None Wound Drainage Odor: None/Absent Tissue Surrounding Wound: Intact Wound General Appearance: Reddened - dark brown/maroon Wound Assessment #4: Wound Number: 4 Wound Present on Admission: Yes New Wound: No Status Change of Wound: No Wound Location Body Site Modif: mid Wound Location Body Site: sacral Wound Type: pressure ulcer Bryce Test: Does not Bryce Pressure Ulcer Stage: Unstageable Wound Thickness: Full Thickness Wound Length: 3.0 Wound Width: 2.0 Wound Depth: utd Percent of Wound Emmet/Red: 10 Percent of Wound Bed Yellow/Wh: 90 Wound Drainage Description: Serosanguineous Wound Drainage Amount: Moderate Wound Drainage Odor: None/Absent Tissue Surrounding Wound: Macerated - noted around periwound site Wound General Appearance: Reddened, Draining, Necrotic Wound Assessment #5: Wound Number: 5 Wound Present on Admission: Yes New Wound: No Status Change of Wound: No Wound Location Body Site Modif: left Wound Location Body Site: sacral Wound Type: scar Bryce Test: Does not Bryce Wound Thickness: Full Thickness Wound Length: 3.0 Wound Width: 3.0 Percent of Wound Emmet/Red: 100 Wound Drainage Amount: None Wound Drainage Odor: None/Absent Tissue Surrounding Wound: Intact Wound Assessment #6: Wound Number: 6 Wound Present on Admission: Yes New Wound: No Status Change of Wound: No Wound Location Body Site Modif: right Wound Location Body Site: sacral Wound Type: scar Bryce Test: Does not Bryce Wound Thickness: Full Thickness Wound Length: 3.0 Wound Width: 3.0 Percent of Wound Emmet/Red: 100 Wound Drainage Amount: None Wound Drainage Odor: None/Absent Tissue Surrounding Wound: Intact Wound Assessment #7: Wound Number: 7 Wound Present on Admission: Yes New Wound: No Status Change of Wound: No Wound Location Body Site Modif: left Wound Location Body Site: ear Wound Type: pressure ulcer Bryce Test: Does not Bryce Pressure Ulcer Stage: Unstageable Wound Thickness: Full Thickness Wound Length: 1.5 Wound Width: 1.0 Wound Depth: utd Percent of Wound Black/Brown: 100 Wound Drainage Amount: None Wound Drainage Odor: None/Absent Tissue Surrounding Wound: Intact Wound General Appearance: Reddened - brown Wound Assessment #8: Wound Number: 8 Wound Present on Admission: Yes New Wound: No Status Change of Wound: No Wound Location Body Site Modif: right, lateral Wound Location Body Site: knee Bryce Test: Does not Bryce Pressure Ulcer Stage: Deep Tissue Injury - suspected Wound Length: 2.5 Wound Width: 2.5 Percent of Wound Purple/Maroon: 100 - deep brown color over bony prominence Wound Drainage Amount: None Wound Drainage Odor: None/Absent Tissue Surrounding Wound: Intact Wound General Appearance: Open to air, Clean/Dry Wound Assessment #9: Wound Number: 9 Wound Present on Admission: Yes New Wound: No Status Change of Wound: No Wound Location Body Site Modif: left, medial Wound Location Body Site: foot Wound Type: other - scattered non blanhable dark brown hyperpigmentation over bony areas Bryce Test: Does not Bryce Percent of Wound Black/Brown: 100 Wound Drainage Amount: None Wound Drainage Odor: None/Absent Tissue Surrounding Wound: Intact Wound General Appearance: Open to air, Clean/Dry Wound Assessment #10: Wound Number: 10 Wound Present on Admission: Yes New Wound: No Status Change of Wound: No Wound Location Body Site Modif: right Wound Location Body Site: ischial tuberosity Wound Type: scar Bryce Test: Does not Bryce Wound Thickness: Full Thickness Wound Length: 3.0 Wound Width: 3.0 Percent of Wound Emmet/Red: 100 Wound Drainage Amount: None Wound Drainage Odor: None/Absent Tissue Surrounding Wound: Intact Wound Assessment #11: Wound Number: 11 Wound Present on Admission: Yes New Wound: No Status Change of Wound: No Wound Location Body Site Modif: left Wound Location Body Site: toe - 2nd Wound Type: scab Bryce Test: Does not Byrce Wound Length: 0.5 Wound Width: 0.5 Wound Depth: utd Percent of Wound Black/Brown: 100 Other Colors Identified: surrounding skin also noted with deep brown skin color. Wound Drainage Amount: None Wound Drainage Odor: None/Absent Tissue Surrounding Wound: Intact Wound General Appearance: Open to air, Clean/Dry Wound Assessment #12: Wound Number: 12 Wound Present on Admission: Yes New Wound: No Status Change of Wound: No Wound Location Body Site Modif: left Wound Location Body Site: ischial tuberosity Wound Type: scar Bryce Test: Does not Bryce Wound Thickness: Full Thickness Wound Length: 3.0 Wound Width: 3.0 Percent of Wound Emmet/Red: 100 Wound Drainage Amount: None Wound Drainage Odor: None/Absent Tissue Surrounding Wound: Intact Wound General Appearance: Open to air, Clean/Dry Wound Assessment #13: Wound Number: 13 Wound Present on Admission: Yes New Wound: No Status Change of Wound: No Wound Location Body Site Modif: right Wound Location Body Site: ear Wound Type: scar Bryce Test: Does not Bryce Wound Thickness: Full Thickness Wound Length: 1.0 Wound Width: 0.5 Percent of Wound Emmet/Red: 100 Wound Drainage Amount: None Wound Drainage Odor: None/Absent Tissue Surrounding Wound: Intact Wound General Appearance: Open to air, Clean/Dry Wound Comment #1 Mid Sacral unstageable pressure ulcer. #2 Left ear unstageable pressure ulcer. #3 left 2nd toe scab. #4 right medial ankle unstageable pressure ulcer. #5 Right lateral knee suspected deep tissue injury. #6 Right elbow full thickness scar tissue. #7 Right heel full thickness scar tissue. #8 Left Sacral full thickness scar tissue. #9 Right Sacral full thickness scar tissue. #10 Right ischial tuberosity full thickness scar tissue. #11 Left medial foot scattered hyperpigmentation over bony areas. #12 Left ischial tuberosity full thickness scar tissue. #13 Right ear full thickness scar tissue. Recommendation. -Local wound care as ordered -Apply low air loss SPR mattress. -Turn and reposition. -Keep clean and dry. -Optimize nutrition. -Heel protectors. -Avoid shear and friction. -Offload heels. -Assess and follow up with MD for an changes of condition to skin. DION GROVER May 09, 2017 11:43
[2017-05-09 12:00] VITALS: BP 110/60
[2017-05-09] MEDS: Vitamin B-12 500mcg tab ORAL SCH (12:56)
--- NOTE | 2017-05-09 13:04 | History & Physical ---
History and Physical History & Physicial HISTORY OF PRESENT ILLNESS: This elderly woman was admitted from home due to weakness and poor intake. She has high K and possible UTI. T wave abnormalities were noted. Admission was arranged. PAST MEDICAL HISTORY: Cardiac arrest in April 2012 with placement of a defibrillator and pacemaker. 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 Admitted for pneumonia recently. She has dysphagia. ALLERGIES: NESHA INHIBITOR CAUSES COUGH. VACCINES. SHE HAD PNEUMOCOCCAL VACCINE IN 2008 AND FLU VACCINE ANNUALLY. MEDICATIONS: Reviewed and reconciled. PAST SURGICAL HISTORY: Pacemaker, defibrillator and cholecystectomy. SOCIAL HISTORY: She lives at home with the daughter. She does not smoke. She has a high school education and is retired. REVIEW OF SYSTEMS: Cannot be obtained. The patient is aphasic. PHYSICAL EXAMINATION: GENERAL: The patient is alert and responsive, smiling at me, mumbling "yes" VITAL SIGNS: The vital signs are stable. There is no fever. HEENT: The head is normocephalic. NECK: No jugular vein distention or lymphadenopathy. CHEST: Few rales CARDIAC: Rhythm is regular. ABDOMEN: Soft and nontender. Liver and spleen are not enlarged. EXTREMITIES: No clubbing, cyanosis, or edema. CHEST: An implanted defibrillator is noted in the left anterior axillary region. LABORATORY DATA: Reviewed. K 5.5 IMPRESSIONS: 1. Hyperkalemia 2. Mild UTI 3. T wave abnormalities 4. History of stroke with right hemiparesis and aphasia. 5. Diabetes. 6. Hypertensive heart disease with chronic systolic and diastolic heart failure. PLAN: The patient will be admitted to inpatient. We will give IVF. Cardiology was notified. She will be DNR per prior discussion with the daughter. EDWARDO HOOKS May 09, 2017 13:04
[2017-05-09 16:00] VITALS: BP 134/64
[2017-05-09] MEDS: cefTRIAXone 1 GM in NS 55 ML IVPB SCH (16:27)
--- NOTE | 2017-05-09 17:59 | Cardiology Report ---
APPROVED REPORT EKG Measurement Heart [id number] Normal sinus rhythm Septal infarct, age undetermined Abnormal ECG
[2017-05-09] MEDS: Heparin 5000 units/ml inj SUBQ SCH (21:22)
[2017-05-10] MEDS: D5NS 1,000 ML IV SCH ×3 (00:16→20:35)
[2017-05-10] MEDS: Albuterol/Ipratropium 3ml neb HHN SCH ×6 (03:00→23:43)
[2017-05-10 04:41] LABS: BASOPHILS % (AUTO) 1.2 % (0.0-2.0); EOSINOPHILS % (AUTO) 1.7 % (0.0-3.0); LYMPHOCYTES % (AUTO) 18.6 % (20.0-45.0); MEAN CORPUSCULAR HGB CONC 31.2 G/DL (32.0-36.0); MEAN CORPUSCULAR VOLUME 77 FL (80-99); MEAN PLATELET VOLUME 7.1 FL (6.5-10.1); MONOCYTES % (AUTO) 6.9 % (1.0-10.0); NEUTROPHILS % (AUTO) 71.6 % (45.0-75.0); PLATELET COUNT 272 K/UL (150-450); RED BLOOD COUNT 3.38 M/UL (4.20-5.40); RED CELL DISTRIBUTION WIDTH 16.6 % (11.6-14.8); WHITE BLOOD COUNT 5.1 K/UL (4.8-10.8)
[2017-05-10 06:08] LABS: ALANINE AMINOTRANSFERASE 44 U/L (12-78); ALBUMIN/GLOBULIN RATIO 0.6 (1.0-2.7); ANION GAP 12 mmol/L (5-15); ASPARTATE AMINO TRANSFERASE 23 U/L (15-37); CALCIUM 9.1 MG/DL (8.5-10.1); CARBON DIOXIDE 21 MMOL/L (21-32); CHLORIDE 110 MMOL/L (98-107); CREATININE 0.9 MG/DL (0.55-1.30); POTASSIUM 3.2 MMOL/L (3.5-5.1); SODIUM 142 MMOL/L (136-145); TOTAL PROTEIN 5.9 G/DL (6.4-8.2)
[2017-05-10] MEDS: sitaGLIPtin 50mg tab ORAL SCH (06:39)
[2017-05-10 08:00] VITALS: BP 143/63
[2017-05-10] MEDS: Losartan 50mg tab ORAL SCH (09:00)
[2017-05-10] MEDS: Vitamin B-12 500mcg tab ORAL SCH (09:00)
[2017-05-10] MEDS: Heparin 5000 units/ml inj SUBQ SCH ×2 (09:00→20:32)
[2017-05-10] MEDS: Donepezil 10mg tab ORAL SCH (09:00)
[2017-05-10] MEDS: Amiodarone 200mg tab ORAL SCH (09:00)
[2017-05-10] MEDS: Aspirin EC 81mg tab ORAL SCH (09:00)
[2017-05-10] MEDS: Carvedilol 12.5mg tab ORAL SCH ×2 (09:46→20:31)
[2017-05-10 12:00] VITALS: BP 128/60
--- NOTE | 2017-05-10 12:59 | General Progress Note ---
Assessment/Plan Assessment/Plan 1. Hyperkalemia, now low 2. UTI, c/s pdg 3. EKG abnormalities 4. History of stroke with right hemiparesis and aphasia. 5. Diabetes. 6. Hypertensive heart disease with chronic systolic and diastolic heart failure. cardiology will see her c/s urine pdg called pod, wound care per dtr hope to dc tomorrow Subjective ROS Limited/Unobtainable: Yes Allergies: Coded Allergies: No Known Allergies (Verified , 06/03/10) Objective Last 24 Hour Vital Signs Date Time Temp Pulse Resp B/P (MAP) Pulse Ox O2 Delivery O2 Flow Rate FiO2 05/10/17 12:21 67 16 100 Room Air 21 05/10/17 12:06 67 20 100 Room Air 21 05/10/17 09:46 67 143/63 05/10/17 09:00 143/63 05/10/17 08:00 66 05/10/17 07:48 114 18 100 Room Air 21 05/10/17 07:35 66 18 100 Room Air 21 05/10/17 04:00 66 05/10/17 03:15 71 18 94 Room Air 21 05/10/17 03:00 21 05/10/17 03:00 69 18 97 Room Air 21 05/10/17 00:00 60 05/09/17 23:20 76 18 96 Room Air 21 05/09/17 23:10 21 05/09/17 23:10 72 18 96 Room Air 21 05/09/17 21:21 72 134/64 05/09/17 20:00 65 05/09/17 19:20 72 18 100 Room Air 21 05/09/17 19:15 67 18 100 Room Air 21 05/09/17 19:15 69 18 Room Air 21 05/09/17 19:15 21 05/09/17 16:05 63 05/09/17 16:00 98.4 65 19 134/64 97 Room Air 05/09/17 15:39 70 18 94 Room Air 21 05/09/17 15:34 21 05/09/17 15:33 68 18 Room Air 21 05/09/17 15:32 68 18 92 Room Air 21 Laboratory Tests 05/10/17 03:15: White Blood Count 5.1, Red Blood Count 3.38L, Hemoglobin 8.1L, Hematocrit 25.9L , Mean Corpuscular Volume 77L, Mean Corpuscular Hemoglobin 24.0L, Mean Corpuscular Hemoglobin Concent 31.2L, Red Cell Distribution Width 16.6H, Platelet Count 272, Mean Platelet Volume 7.1, Neutrophils (%) (Auto) 71.6, Lymphocytes (%) (Auto) 18.6L, Monocytes (%) (Auto) 6.9, Eosinophils (%) (Auto) 1.7, Basophils (%) (Auto) 1.2, Sodium Level 142, Potassium Level 3.2L, Chloride Level 110H, Carbon Dioxide Level 21, Anion Gap 12, Blood Urea Nitrogen 18, Creatinine 0.9, Estimat Glomerular Filtration Rate , Glucose Level 148H, Calcium Level 9.1, Total Bilirubin 0.2, Aspartate Amino Transf (AST/SGOT) 23, Alanine Aminotransferase (ALT/SGPT) 44, Alkaline Phosphatase 60, Total Protein 5.9L, Albumin 2.2L, Globulin 3.7, Albumin/Globulin Ratio 0.6L Height (Feet): 5 Height (Inches): 2.00 Weight (Pounds): 93 General Appearance: no apparent distress Cardiovascular: normal rate Respiratory/Chest: lungs clear Abdomen: non tender EDWARDO HOOKS May 10, 2017 12:59
--- NOTE | 2017-05-10 15:13 | Consultation ---
Consult Note Assessment/Plan A/ 1) Right medial ankle DTI 2) DM 3) Diabetic Neuropathy 4) Abn mobility P/ 1) Cont wound care as ordered 2) Cont heel protectors 3) Will order arterial ultz - nonpalp pedal pulses 4) Will follow Thank you Osiel Lockhart DPM May 10, 2017 15:13
[2017-05-10] MEDS: cefTRIAXone 1 GM in NS 55 ML IVPB SCH (17:34)
--- NOTE | 2017-05-10 17:34 | Consultation ---
History of Present Illness General Date patient seen: May 10, 2017 Time patient seen: 17:30 Chief Complaint: Generalized Weakness Reason for Consultation: Sacral ulcer Present Illness HPI Asked to evaluate this patient known to me from the outpatient wound center. She was admitted to [facility] for failure to thrive. She has a coccyx ulcer that has been treated and healed in the past. She is bedridden with h/o CVA. Allergies: Coded Allergies: No Known Allergies (Verified , 06/03/10) Medication History Scheduled Amiodarone Hcl* (Cordarone*), 200 MG ORAL DAILY, (Reported) Aspirin Ec* (Aspirin Ec*), 81 MG ORAL DAILY, (Reported) Atorvastatin Calcium* (Lipitor*), 10 MG ORAL DAILY, (Reported) Carvedilol (Coreg), 12.5 MG ORAL EVERY 12 HOURS, (Reported) Donepezil Hcl* (Aricept*), 10 MG ORAL DAILY, (Reported) Ipratropium/Albuterol Sulfate (DuoNeb 0.5-3(2.5)mg/3ml), 3 ML HHN Q4HRT Losartan Potassium (Losartan Potassium), 100 MG ORAL DAILY, (Reported) Metformin Hcl* (Metformin Hcl*), 500 MG ORAL TWICE A DAY, (Reported) Metformin Hcl* (Metformin Hcl*), 850 MG ORAL BID, (Reported) Multivitamins* (Multivitamins*), 1 TAB ORAL TID, (Reported) Sitagliptin (Januvia), 50 MG ORAL DAILY, (Reported) [Vit B 12], 1 TAB PO BID, (Reported) Patient History Limited by: medical condition History Provided By: Medical Record Healthcare decision maker Resuscitation status Full Code Advanced Directive on File No Review of Systems Constitutional: Reports: no symptoms Skin: Reports: see HPI Physical Exam General Appearance: alert, thin Lines, tubes and drains: peripheral Respiratory/Chest: no respiratory distress Skin Exam: other - Stage 2 pressure ulcer of the coccyx with clean granular base. Periskin in good condition. No erythema or warmth. No crepitus. Musculoskeletal: atrophy Last 24 Hour Vital Signs Date Time Temp Pulse Resp B/P (MAP) Pulse Ox O2 Delivery O2 Flow Rate FiO2 05/10/17 15:34 74 20 100 Room Air 21 05/10/17 15:24 69 18 100 Room Air 21 05/10/17 12:21 67 16 100 Room Air 21 05/10/17 12:06 67 20 100 Room Air 21 05/10/17 12:00 97.5 62 20 128/60 100 Room Air 05/10/17 12:00 69 05/10/17 09:46 67 143/63 05/10/17 09:00 143/63 05/10/17 08:00 97.2 67 20 143/63 99 Room Air 05/10/17 08:00 66 05/10/17 07:48 114 18 100 Room Air 21 05/10/17 07:35 66 18 100 Room Air 21 05/10/17 04:00 66 05/10/17 03:15 71 18 94 Room Air 21 05/10/17 03:00 21 05/10/17 03:00 69 18 97 Room Air 21 05/10/17 00:00 60 05/09/17 23:20 76 18 96 Room Air 21 05/09/17 23:10 21 05/09/17 23:10 72 18 96 Room Air 21 05/09/17 21:21 72 134/64 05/09/17 20:00 65 05/09/17 19:20 72 18 100 Room Air 21 05/09/17 19:15 67 18 100 Room Air 21 05/09/17 19:15 69 18 Room Air 21 05/09/17 19:15 21 Intake and Output 05/10/17 05/11/17 19:00 07:00 Intake Total 600 ml Balance 600 ml IV Total 600 ml Laboratory Tests Test 05/10/17 03:15 White Blood Count 5.1 K/UL (4.8-10.8) Red Blood Count 3.38 M/UL (4.20-5.40) L Hemoglobin 8.1 G/DL (12.0-16.0) L Hematocrit 25.9 % (37.0-47.0) L Mean Corpuscular Volume 77 FL (80-99) L Mean Corpuscular Hemoglobin 24.0 PG (27.0-31.0) L Mean Corpuscular Hemoglobin Concent 31.2 G/DL (32.0-36.0) L Red Cell Distribution Width 16.6 % (11.6-14.8) H Platelet Count 272 K/UL (150-450) Mean Platelet Volume 7.1 FL (6.5-10.1) Neutrophils (%) (Auto) 71.6 % (45.0-75.0) Lymphocytes (%) (Auto) 18.6 % (20.0-45.0) L Monocytes (%) (Auto) 6.9 % (1.0-10.0) Eosinophils (%) (Auto) 1.7 % (0.0-3.0) Basophils (%) (Auto) 1.2 % (0.0-2.0) Sodium Level 142 MMOL/L (136-145) Potassium Level 3.2 MMOL/L (3.5-5.1) L Chloride Level 110 MMOL/L (98-107) H Carbon Dioxide Level 21 MMOL/L (21-32) Anion Gap 12 mmol/L (5-15) Blood Urea Nitrogen 18 mg/dL (7-18) Creatinine 0.9 MG/DL (0.55-1.30) Estimat Glomerular Filtration Rate mL/min (>60) Glucose Level 148 MG/DL (74-106) H Calcium Level 9.1 MG/DL (8.5-10.1) Total Bilirubin 0.2 MG/DL (0.2-1.0) Aspartate Amino Transf (AST/SGOT) 23 U/L (15-37) Alanine Aminotransferase (ALT/SGPT) 44 U/L (12-78) Alkaline Phosphatase 60 U/L (46-116) Total Protein 5.9 G/DL (6.4-8.2) L Albumin 2.2 G/DL (3.4-5.0) L Globulin 3.7 g/dL Albumin/Globulin Ratio 0.6 (1.0-2.7) L Height (Feet): 5 Height (Inches): 2.00 Weight (Pounds): 93 Medications Current Medications Medications (Trade) Dose Ordered Sig/Sam Route PRN Reason Start Time Stop Time Status Last Admin Dose Admin Albuterol/ Ipratropium (Albuterol/ Ipratropium) 3 ml Q4HRT HHN 05/09/17 11:00 05/14/17 10:59 05/10/17 15:28 Amiodarone HCl (Cordarone) 200 mg DAILY ORAL 05/09/17 09:00 06/08/17 08:59 05/10/17 09:00 Aspirin (Ecotrin) 81 mg DAILY ORAL 05/09/17 09:00 06/08/17 08:59 05/10/17 09:00 Atorvastatin Calcium (Lipitor) 10 mg QHS ORAL 05/09/17 21:00 06/08/17 20:59 05/09/17 21:21 Carvedilol (Coreg) 12.5 mg EVERY 12 HOURS ORAL 05/09/17 09:00 06/08/17 08:59 05/10/17 09:46 Ceftriaxone Sodium 1 gm/ Sodium Chloride 55 ml @ 110 mls/hr Q24HRS IVPB 05/09/17 17:00 05/16/17 16:59 05/09/17 16:27 Cyanocobalamin (Vitamin B-12) 500 mcg DAILY ORAL 05/09/17 12:00 06/08/17 11:59 05/10/17 09:00 Dextrose/Sodium Chloride 1,000 ml @ 75 mls/hr [id number] IV 05/08/17 21:30 06/07/17 21:29 05/10/17 13:39 Donepezil HCl (Aricept) 10 mg DAILY ORAL 05/09/17 09:00 06/08/17 08:59 05/10/17 09:00 Heparin Sodium (Porcine) (Heparin 5000 units/ml) 5,000 units EVERY 12 HOURS SUBQ 05/09/17 21:00 06/08/17 20:59 05/10/17 09:00 Losartan Potassium (Cozaar) 100 mg DAILY ORAL 05/09/17 09:00 06/08/17 08:59 05/10/17 09:00 Metformin HCl (Glucophage) 850 mg BID ORAL 05/09/17 09:00 06/08/17 08:59 Future hold 05/10/17 09:45 Multivitamins (Multivitamins) 1 tab DAILY ORAL 05/09/17 09:00 06/08/17 08:59 05/10/17 09:45 Sitagliptin Phosphate (Januvia) 50 mg ACBREAKFAST ORAL 05/10/17 06:30 06/08/17 08:59 05/10/17 06:39 Assessment/Plan Status: stable Assessment/Plan Patient with chronic stage 2 coccyx pressure ulcer. Need to off-load and turn q 2hrs. Optimize nutrition, moisture control. No need for surgical intervention at this time. Once she is discharged will arrange for follow up at the wound center. STEFANY HEATON May 10, 2017 17:34
[2017-05-10 20:00] VITALS: BP 158/76
--- NOTE | 2017-05-10 20:00 | Consultation ---
DATE OF CONSULTATION: 05/10/2017 CONSULTING PHYSICIAN: Osiel Kirk D.P.M. REQUESTING PHYSICIAN: Oswald Estrella M.D. REASON FOR CONSULTATION: History of a skin lesion in the presence of diabetes mellitus. HISTORY OF PRESENT ILLNESS: The patient is an 82-year-old female, who was admitted to [facility] on 05/08/2017 for weakness and urinary tract infection. The patient does not look in any apparent distress and does not complain of any pain in the lower extremities. PAST MEDICAL HISTORY: Significant for cardiac arrest in 2011, defibrillator placement, pacemaker placement, diabetes mellitus, diabetic neuropathy, hyperlipidemia, chronic anemia, dementia, multiple strokes with right-sided hemiparesis, aphasia, depression, hypertension, congestive heart failure, diastolic dysfunction, gallstone pancreatitis, history of pneumonia, and history of dysphagia. PAST SURGICAL HISTORY: As above. MEDICATIONS: Per AUG. ALLERGIES: She is allergic to NESHA inhibitors. SOCIAL HISTORY: Noncontributory. FAMILY HISTORY: Noncontributory. PHYSICAL EXAMINATION: VITAL SIGNS: Temperature is 97.5, pulse is 69, respirations 20, blood pressure is 128/60, and saturating 100% on room air. EXTREMITIES: Lower extremity physical exam, vascular, nonpalpable pedal pulses noted bilaterally. Feet are equally warm. There is no edema or cyanosis noted. DERMATOLOGICAL: There is a discoloration noted on the medial aspect of the right ankle. No signs of acute infection. No other sores or lesions noted. Nails are within normal limits. MUSCULOSKELETAL: The patient is able to move the left leg upon request and unable to move the right side. Protective threshold is diminished. LABORATORY DATA: White blood cell count is 5.1, hemoglobin and hematocrit is 8.1 and 25.9, and platelet count is 272,000. Potassium 3.2, BUN is 18, creatinine is 0.9, and glucose is 148. Albumin is 2.2. No lower extremity imaging is noted. ASSESSMENT: 1. Right medial ankle deep tissue injury. 2. Diabetes mellitus. 3. Diabetic neuropathy. 4. Abnormal mobility. PLAN: 1. Continue wound care as ordered. 2. Continue heel protectors. 3. We will order arterial ultrasound due to nonpalpable pedal pulses. 4. We will follow. Thank you for the courtesy of this consultation. Osiel Kirk D.P.M. DR: CHEKO JOB#: [id number] CC:
[2017-05-11] VITALS: BP 139/73
--- NOTE | 2017-05-11 03:30 | Progress Note ---
DATE: 05/10/2017 CARDIOLOGY PROGRESS NOTE SUBJECTIVE: The patient is without distress. No shortness of breath. Monitored rhythm, sinus and sinus arrhythmia, no pauses. OBJECTIVE: VITAL SIGNS: Blood pressure is 143/63, pulse rate 67, and respiratory rate 20. NECK: Jugular venous pressure is flat. LUNGS: With few rales. CARDIAC: Regular rhythm and rate. Normal S1 and S2 with a fourth heart sound. ABDOMEN: Soft. EXTREMITIES: No edema. Left axillary defibrillator site is clean with no skin breakdown. DIAGNOSTIC DATA: EKG reviewed, notable for sinus rhythm, intraventricular conduction delay, and nonspecific T-wave changes. IMPRESSION: 1. No evidence of acute myocardial ischemia. 2. Ischemic cardiomyopathy. 3. History of cardiac arrhythmias, on amiodarone with cardiac defibrillator. 4. Hypertensive heart disease. PLAN: 1. No further diagnostic cardiac studies planned. 2. Outpatient ICD interrogation will be arranged. 3. Continue maintenance dose amiodarone. 4. Maintain current antianginal and anti-failure regimen. Robert Hunter M.D. DR: Drea JOB#: [id number] CC:
[2017-05-11] MEDS: Albuterol/Ipratropium 3ml neb HHN SCH ×6 (03:43→23:01)
--- NOTE | 2017-05-11 03:45 | Consultation ---
DATE OF CONSULTATION: 05/09/2017 CARDIOLOGY CONSULTATION CONSULTING PHYSICIAN: Robert Hunter M.D. REQUESTING PHYSICIAN: Oswald Estrella M.D. REASON FOR CONSULTATION: Abnormal EKG in the setting of cardiomyopathy with cardiac defibrillator. HISTORY OF PRESENT ILLNESS: This is an 82-year-old female, was admitted from home due to poor oral intake, weakness, and electrolyte abnormalities. She was noted to have signs of acute renal failure due to hypovolemia and dehydration and urinary tract infection. Concern was raised over her abnormal EKG prompting this consultation. The patient has a known history of cardiomyopathy with chronic systolic and diastolic congestive heart failure. Her ejection fraction estimates have been in the range of 35% to 40%. She is status post cardiac arrest in 2011 with subsequent implant of cardiac defibrillator. She had a cardiac catheterization at that time revealed normal coronaries. She has also had prior strokes with resultant right-sided hemiparesis and aphasia. 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 ALLERGIES: Include NESHA inhibitor, cough. MEDICATIONS: Prior to admission reviewed and reconciled. SOCIAL HISTORY: Negative for smoking, alcohol, or substance abuse. FAMILY HISTORY: None known. REVIEW OF SYSTEMS: Not obtainable from the patient. Review of records dating back to 2012 is completed x30 minutes and all pertinent data has been outlined above. PHYSICAL EXAMINATION: VITAL SIGNS: Blood pressure 134/64, pulse 65, respiratory rate 19, afebrile, and oxygen saturation on room air 97%. GENERAL: Awake, alert, and interactive. Minimally verbal. SKIN: The left anterior axillary region has a defibrillator, palpable. No skin breakdown noted. NECK: Supple. LUNGS: With few rales. CARDIAC: Regular rhythm and rate. Normal S1, paradoxically split S2. A 1/6 systolic murmur at the apex. ABDOMEN: Soft and nontender. No ascites. EXTREMITIES: Without edema. There is right-sided weakness and aphasia. LABORATORY AND DIAGNOSTIC DATA: EKG revealed sinus rhythm, possible septal infarction, IVCD. Labs, white count of 7.9, hemoglobin 9.3. Sodium 137, potassium 5.6, bicarbonate 21, BUN 26, creatinine 0.9, and glucose 160. Albumin 2.4. Yesterday, pro-natriuretic peptide was 3500 and troponin was 0.019. IMPRESSION: 1. Persistent hyperkalemia. 2. Urinary tract infection. 3. Hypertensive cardiomyopathy. 4. Acute on chronic systolic and diastolic congestive heart failure, mostly compensated. 5. Cerebrovascular accident with aphasia and right hemiparesis. 6. EKG abnormalities have no acute clinical significance. 7. Cardiac defibrillator with history of sudden cardiac several years ago. PLAN: Because of the patient's poor performance status, she is DNR per daughter's wishes. Her potassium will be corrected should it remain high. Losartan should be considered. Her antihypertensive and antianginal regimen should be titrated for optimal volume management. Maintenance dose amiodarone at 200 mg daily should continue. Thyroid function should be checked, otherwise I would not recommend any change in cardiovascular regimen. Outpatient interrogation of defibrillator will follow. Robert Hunter M.D. DR: JEANNINE JOB#: [id number] CC:
[2017-05-11 05:26] LABS: ANION GAP 10 mmol/L (5-15); CALCIUM 8.4 MG/DL (8.5-10.1); CARBON DIOXIDE 22 MMOL/L (21-32); CHLORIDE 113 MMOL/L (98-107); CREATININE 0.8 MG/DL (0.55-1.30); POTASSIUM 2.8 MMOL/L (3.5-5.1); SODIUM 145 MMOL/L (136-145)
[2017-05-11] MEDS: sitaGLIPtin 50mg tab ORAL SCH (05:31)
[2017-05-11 08:00] VITALS: BP 157/76
[2017-05-11] MEDS ORDERED: KCl 10% 40mEq/30ml liquid ORAL ONE ×2 (09:00→21:00)
[2017-05-11] MEDS: Donepezil 10mg tab ORAL SCH (09:06)
[2017-05-11] MEDS: Carvedilol 12.5mg tab ORAL SCH ×2 (09:07→21:40)
[2017-05-11] MEDS: Losartan 50mg tab ORAL SCH (09:07)
[2017-05-11] MEDS: Aspirin EC 81mg tab ORAL SCH (09:08)
[2017-05-11] MEDS: Amiodarone 200mg tab ORAL SCH (09:09)
[2017-05-11] MEDS: Vitamin B-12 500mcg tab ORAL SCH (09:10)
[2017-05-11] MEDS: Heparin 5000 units/ml inj SUBQ SCH ×2 (09:11→21:41)
[2017-05-11 12:00] VITALS: BP 139/72
--- NOTE | 2017-05-11 12:34 | General Progress Note ---
Assessment/Plan Assessment/Plan 1. Hyperkalemia, now low 2. UTI, c/s pdg 3. EKG abnormalities 4. History of stroke with right hemiparesis and aphasia. 5. Diabetes. 6. Hypertensive heart disease with chronic systolic and diastolic heart failure. appreciate consultants guidance c/s urine noted; rx adjusted K low; rx ordered disc w dtr home w [facility] tomorrow Subjective ROS Limited/Unobtainable: Yes Allergies: Coded Allergies: No Known Allergies (Verified , 06/03/10) Objective Last 24 Hour Vital Signs Date Time Temp Pulse Resp B/P (MAP) Pulse Ox O2 Delivery O2 Flow Rate FiO2 05/11/17 10:57 83 20 Room Air 21 05/11/17 10:44 78 20 95 Room Air 21 05/11/17 09:07 157/76 05/11/17 09:07 68 157/76 05/11/17 08:00 99.0 69 19 157/76 94 Room Air 05/11/17 08:00 68 05/11/17 07:48 79 20 100 Room Air 21 05/11/17 07:35 72 18 100 Room Air 21 05/11/17 04:00 64 05/11/17 03:54 88 20 100 Room Air 21 05/11/17 03:43 87 18 100 Room Air 21 05/11/17 00:00 71 05/11/17 00:00 98.8 66 18 139/73 93 Room Air 05/10/17 23:52 83 20 100 Room Air 21 05/10/17 23:43 85 18 100 Room Air 21 05/10/17 20:31 89 158/76 05/10/17 20:20 103 18 100 Room Air 21 05/10/17 20:10 72 18 100 Room Air 21 05/10/17 20:00 82 05/10/17 20:00 98.2 89 18 158/76 96 Room Air 05/10/17 16:00 72 05/10/17 15:34 74 20 100 Room Air 21 05/10/17 15:24 69 18 100 Room Air 21 Intake and Output 05/11/17 05/12/17 19:00 07:00 Intake Total 150 ml Balance 150 ml IV Total 150 ml Laboratory Tests 05/11/17 03:40: Sodium Level 145, Potassium Level 2.8L, Chloride Level 113H, Carbon Dioxide Level 22, Anion Gap 10, Blood Urea Nitrogen 14, Creatinine 0.8, Estimat Glomerular Filtration Rate , Glucose Level 133H, Calcium Level 8.4L, Magnesium Level 1.0L, Pro-B-Type Natriuretic Peptide 6202H Height (Feet): 5 Height (Inches): 2.00 Weight (Pounds): 93 General Appearance: no apparent distress, cachetic Cardiovascular: normal rate Respiratory/Chest: lungs clear EDWARDO HOOKS May 11, 2017 12:34
[2017-05-11] MEDS: cefTRIAXone 1 GM in NS 55 ML IVPB SCH (15:20)
[2017-05-11 16:00] VITALS: BP 134/70
[2017-05-11] MEDS ORDERED: Nitrofurantoin Macrocrystal 50mg cap ORAL SCH (18:00)
[2017-05-12] MEDS: Albuterol/Ipratropium 3ml neb HHN SCH ×4 (03:33→15:14)
[2017-05-12 05:02] LABS: ANION GAP 9 mmol/L (5-15); CALCIUM 8.8 MG/DL (8.5-10.1); CARBON DIOXIDE 19 MMOL/L (21-32); CHLORIDE 114 MMOL/L (98-107); CREATININE 0.9 MG/DL (0.55-1.30); POTASSIUM 3.9 MMOL/L (3.5-5.1); SODIUM 142 MMOL/L (136-145)
[2017-05-12] MEDS: sitaGLIPtin 50mg tab ORAL SCH (06:12)
[2017-05-12 08:06] VITALS: BP 138/75
[2017-05-12] MEDS: Donepezil 10mg tab ORAL SCH (08:19)
[2017-05-12] MEDS: Aspirin EC 81mg tab ORAL SCH (08:19)
[2017-05-12] MEDS: cefTRIAXone 1 GM in NS 55 ML IVPB SCH (08:19)
[2017-05-12] MEDS: Losartan 50mg tab ORAL SCH (08:20)
[2017-05-12] MEDS: Carvedilol 12.5mg tab ORAL SCH (08:20)
[2017-05-12] MEDS: Vitamin B-12 500mcg tab ORAL SCH (08:21)
[2017-05-12] MEDS: Amiodarone 200mg tab ORAL SCH (08:21)
[2017-05-12] MEDS: Heparin 5000 units/ml inj SUBQ SCH (08:22)
--- NOTE | 2017-05-12 08:30 | Progress Note ---
DATE: 05/11/2017 CARDIOLOGY PROGRESS NOTE SUBJECTIVE: The patient without complaints. No distress. No apparent chest pain or shortness of breath. OBJECTIVE: VITAL SIGNS: Blood pressure 157/76, pulse 68, and respirations 19. LUNGS: Coarse breath sounds. HEART: Regular rhythm and rate. Normal S1, paradoxically split S2. ABDOMEN: Soft. EXTREMITIES: Trace pitting edema. LABORATORY DATA: Sodium 145, potassium 3.8, magnesium 1.0. Brain natriuretic peptide 6200. IMPRESSION: 1. Cardiomyopathy. 2. Paroxysmal atrial and ventricular arrhythmias. 3. Nonspecific ST-T wave changes. 4. Severe hypomagnesemia. 5. Severe hypokalemia. 6. Hypertensive heart disease. PLAN: 1. Replace potassium. 2. IV magnesium. 3. Continue amiodarone at maintenance dose. 4. Continue beta-odette with titration. 5. Losartan for blood pressure management. 6. Further recommendations will follow should blood pressure control remain at an increasing trend. Robert Hunter M.D. DR: JADEN JOB#: [id number] CC:
--- NOTE | 2017-05-12 10:49 | General Progress Note ---
Assessment/Plan Assessment/Plan 1. Hyperkalemia, now normal 2. UTI, c/s reviewed and abx adjusted 3. EKG abnormalities 4. History of stroke with right hemiparesis and aphasia. 5. Diabetes. 6. Hypertensive heart disease with chronic systolic and diastolic heart failure. c/s urine noted; rx adjusted Hgb low; repeat disc w dtr home w [facility] today if Hgb stable Subjective ROS Limited/Unobtainable: Yes Allergies: Coded Allergies: No Known Allergies (Verified , 06/03/10) Objective Last 24 Hour Vital Signs Date Time Temp Pulse Resp B/P (MAP) Pulse Ox O2 Delivery O2 Flow Rate FiO2 05/12/17 10:35 91 18 99 Room Air 21 05/12/17 10:30 90 18 96 Room Air 21 05/12/17 08:20 138/75 05/12/17 08:20 80 138/75 05/12/17 08:06 97.6 80 18 138/75 94 Room Air 05/12/17 08:00 75 05/12/17 06:29 77 18 99 Room Air 21 05/12/17 06:25 76 18 97 Room Air 21 05/12/17 04:00 78 05/12/17 03:41 68 18 99 Room Air 21 05/12/17 03:33 73 18 97 Room Air 21 05/12/17 00:00 69 05/11/17 23:11 72 20 99 Room Air 21 05/11/17 23:01 78 18 98 Room Air 21 05/11/17 21:40 75 146/80 05/11/17 20:00 72 05/11/17 19:22 79 20 98 Room Air 21 05/11/17 19:12 80 20 96 Room Air 21 05/11/17 16:00 97.9 76 19 134/70 97 Room Air 05/11/17 16:00 73 05/11/17 15:39 81 20 Room Air 21 05/11/17 15:20 76 20 Room Air 21 05/11/17 12:00 61 05/11/17 12:00 98.2 64 20 139/72 93 Room Air 05/11/17 10:57 83 20 Room Air 21 Intake and Output 05/12/17 05/13/17 19:00 07:00 Intake Total 55 ml Balance 55 ml IV Total 55 ml Laboratory Tests 05/12/17 03:20: Sodium Level 142, Potassium Level 3.9, Chloride Level 114H, Carbon Dioxide Level 19L, Anion Gap 9, Blood Urea Nitrogen 14, Creatinine 0.9, Estimat Glomerular Filtration Rate , Glucose Level 119H, Calcium Level 8.8 Height (Feet): 5 Height (Inches): 2.00 Weight (Pounds): 93 General Appearance: no apparent distress Cardiovascular: normal rate Respiratory/Chest: lungs clear Abdomen: non tender EDWARDO HOOKS May 12, 2017 10:49
[2017-05-12 11:20] LABS: BASOPHILS % (AUTO) 0.7 % (0.0-2.0); EOSINOPHILS % (AUTO) 0.9 % (0.0-3.0); LYMPHOCYTES % (AUTO) 14.5 % (20.0-45.0); MEAN CORPUSCULAR HEMOGLOBIN 23.3 PG (27.0-31.0); MEAN CORPUSCULAR HGB CONC 29.8 G/DL (32.0-36.0); MEAN CORPUSCULAR VOLUME 78 FL (80-99); MEAN PLATELET VOLUME 5.6 FL (6.5-10.1); MONOCYTES % (AUTO) 5.6 % (1.0-10.0); NEUTROPHILS % (AUTO) 78.4 % (45.0-75.0); PLATELET COUNT 310 K/UL (150-450); RED BLOOD COUNT 3.41 M/UL (4.20-5.40); RED CELL DISTRIBUTION WIDTH 16.6 % (11.6-14.8); WHITE BLOOD COUNT 8.1 K/UL (4.8-10.8)
[2017-05-12 11:59] VITALS: BP 152/76
[2017-05-12 12:47] LABS: EOSINOPHILS % (AUTO) 0.9 % (0.0-3.0); LYMPHOCYTES % (AUTO) 11.9 % (20.0-45.0); MEAN CORPUSCULAR HEMOGLOBIN 23.3 PG (27.0-31.0); MEAN CORPUSCULAR HGB CONC 29.8 G/DL (32.0-36.0); MEAN CORPUSCULAR VOLUME 78 FL (80-99); MONOCYTES % (AUTO) 4.2 % (1.0-10.0); NEUTROPHILS % (AUTO) 81.9 % (45.0-75.0); PLATELET COUNT 316 K/UL (150-450); RED BLOOD COUNT 3.64 M/UL (4.20-5.40); RED CELL DISTRIBUTION WIDTH 16.6 % (11.6-14.8)
[2017-05-12] MEDS ORDERED: Cephalexin 250mg Cap ORAL SCH (13:00)
--- NOTE | 2017-05-12 13:30 | Progress Note ---
DATE: 05/12/2017 CARDIOLOGY PROGRESS NOTE SUBJECTIVE: No shortness of breath. Monitored rhythm. Remains sinus with atrial and ventricular ectopy. PHYSICAL EXAMINATION: VITAL SIGNS: Most recent blood pressure 146/80, pulse 70, respiratory rate 18. LUNGS: No wheezing. HEART: Regular rhythm and rate. Normal S1, paradoxically split S2. ABDOMEN: Soft. No edema. LABORATORY DATA: Magnesium yesterday was 1.0. Potassium today 3.9. Pro-natriuretic peptide yesterday was 6900. IMPRESSION: 1. Hypomagnesemia. 2. Cardiomyopathy. 3. Paroxysmal atrial and ventricular ectopy. 4. Hypertensive heart disease. 5. Chronic systolic and diastolic congestive heart failure. 6. Cerebrovascular disease with right hemiparesis. 7. Nonspecific EKG abnormalities. PLAN: 1. Complete magnesium replacement. 2. Monitor potassium levels. 3. Continue baseline antihypertensive regimen including amiodarone for arrhythmia suppression. Robert Hunter M.D. DR: Freida JOB#: [id number] CC:
[2017-05-12] MEDS ORDERED: D5NS 1000ml IV ONE ×2 (15:48→16:28)
[2017-05-12] MEDS ORDERED: Tubing IV Secondary IV ONE ×2 (15:48→16:28)
[2017-05-12 15:58] VITALS: BP 135/79
[2017-05-12] MEDS ORDERED: NS 500ML ONE (16:28)
--- NOTE | 2017-05-12 23:08 | Diagnostic Imaging Report ---
APPROVED REPORT CPT Code: 20874 Present Symptoms Comments: R/O DVT Hx of a pacemaker Left side RIGHT UPPER EXTREMITY: Venous imaging reveals patency of the internal jugular, subclavian, axillary and brachial veins. The cephalic and basilic veins are also patent. Doppler indicates normal spontaneous flow within these venous segments. LEFT UPPER EXTREMIYY: Venous imaging reveals thrombus in the internal jugular, subclavian axillary vein. The remaining segments are within normal limits. There is no evidence of thrombus within axillary and brachial veins. Doppler indicates normal spontaneous flow within these venous segments. The cephalic vein was not well visualized. There is no evidence of acute deep vein thrombosis.
--- NOTE | 2017-05-12 23:09 | Diagnostic Imaging Report ---
APPROVED REPORT CPT Code: 66841 Present Symptoms Comments: R/O DVT BILATERAL: Imaging reveals a patent deep venous system bilaterally. There is no evidence of thrombus within the femoral, popliteal or tibial segments. The greater saphenous veins are also within normal limits. Doppler indicates normal spontaneous flow within these segments.
--- NOTE | 2017-05-16 10:17 | Diagnostic Imaging Report ---
APPROVED REPORT CPT Code: 58262 Symptoms Comments: Swelling Comments Exam is technically difficult due to patient status and cooperation. RIGHT LEG: Common femoral artery waveform analysis is within normal limits at rest. Color flow duplex sonography reveals moderate calcification throughout the superficial femoral and popliteal arteries. There is no evidence of significant stenosis or occlusion within these segments. The tibioperoneal trunk was not well visualized. The distal anterior tibial artery appears to be occluded. A mild stenosis (20-30%) is seen in the distal posterior tibial artery. The proximal posterior, dorsalis pedis, and proximal to distal anterior tibial arteries are also mildly calcified. Doppler tibial artery waveform analysis is compatible with mild ischemia at rest.
--- NOTE | 2017-05-17 12:57 | Discharge Summary ---
Discharge Summary Hospital Course Date of Admission May 08, 2017 at 17:12 Date of Discharge May 12, 2017 at 16:29 Admitting Diagnosis weakness/UTI/hyperK HPI Liya Zuluaga is a 82 year old female who was admitted on May 08, 2017 at 17:12 for Weakness,Urinary Tract Infection,Hyperkalemia Hospital Course [id number] Discharge Discharge Disposition Patient was discharged to Home with Discharge Diagnoses: Jaylin Mann NP May 17, 2017 12:57
--- NOTE | 2017-05-17 15:15 | Discharge Summary 2 SIG ---
DATE OF ADMISSION: 05/08/2017 DATE OF DISCHARGE: 05/12/2017 AIRPLANE TECHNICIAN: 1. Robert Hunter M.D. 2. Osiel Kirk M.D. 3. Antwan Goode M.D. BRIEF HOSPITAL COURSE: The patient is an 82-year-old elderly female, who was admitted from home secondary to weakness and poor oral intake. On evaluation at ED, she was noted to have high potassium and urinalysis with evidence of urinary tract infection. EKG was in normal sinus rhythm. Chest x-ray done showed pacemaker with no acute cardiothoracic disease. She was then admitted to the [facility] for evaluation of hyperkalemia, potassium level was 5.5. She was given IV fluids and was seen by Cardiology for evaluation of abnormal EKG. She has a known history of cardiomyopathy with chronic systolic and diastolic congestive heart failure status post cardiac arrest in 2011 with subsequent implant of cardiac defibrillator. She had cardiac catheterization at that time. She was given antihypertensive and antianginal regimen and was continued on amiodarone 200 mg daily. She was started on IV ceftriaxone urine culture showed growth of E. coli and Enterococcus and Klebsiella. She was also seen by Dr. Goode. She came in with a sacral coccygeal ulcer stage II. She was given wound care. No need for surgical intervention. She had a right medial ankle deep tissue injury. Podiatry evaluation was done. Venous duplex of lower extremity was negative for DVT. Hyperkalemia resolved. She was given potassium supplements and magnesium supplements and was eventually discharged home with home health. FINAL DIAGNOSES: 1. Hyperkalemia. 2. Urinary tract infection with E. coli, Klebsiella and enterococcus. 3. Electrocardiogram abnormalities. 4. Old stroke with right hemiparesis and aphasia. 5. Diabetes mellitus. 6. Hypertensive heart disease with chronic systolic and diastolic heart failure. 7. Hypomagnesemia. 8. Cardiomyopathy. 9. Right medial ankle deep tissue injury, present on admission. 10. Stage II coccyx ulcer, present on admission. DISCHARGE MEDICATIONS: Refer to medication list. DISPOSITION: The patient was discharged with home health, [facility]. Oswald Estrella M.D. I have been assigned to dictate discharge summary on this account and I was not involved in the patient's management. Jaylin Mann N.P. DR: MANUEL JOB#: [id number] CC: ILANA
== END 2017-05-12 16:29 | disposition home or self-care (01) | DRG 641 ==
LOC: EMR 16:20 → 2W 17:12 → EDBEDREQ 17:41 → ENRESERV 21:17 → 2W 22:55
DX: E87.5 Hyperkalemia (principal); N17.9 Acute kidney failure, unspecified; L89.152 Pressure ulcer of sacral region, stage 2; G62.9 Polyneuropathy, unspecified; I11.0 Hypertensive heart disease with heart failure; I69.351 Hemiplegia and hemiparesis following cerebral infarction affecting right dominant side; E11.40 Type 2 diabetes mellitus with diabetic neuropathy, unspecified; I50.42 Chronic combined systolic (congestive) and diastolic (congestive) heart failure; N39.0 Urinary tract infection, site not specified; Z95.810 Presence of automatic (implantable) cardiac defibrillator; Z86.74 Personal history of sudden cardiac arrest; I69.320 Aphasia following cerebral infarction; Z88.8 Allergy status to other drugs, medicaments and biological substances; Z66 Do not resuscitate; I49.8 Other specified cardiac arrhythmias; E83.42 Hypomagnesemia; R94.31 Abnormal electrocardiogram [ECG] [EKG]; B96.20 Unspecified Escherichia coli [E. coli] as the cause of diseases classified elsewhere; B95.2 Enterococcus as the cause of diseases classified elsewhere; B96.1 Klebsiella pneumoniae [K. pneumoniae] as the cause of diseases classified elsewhere; L89.510 Pressure ulcer of right ankle, unstageable
CPT/HCPCS: 36415; 71010; 80048; 80053; 81003; 82550; 82553; 82962; 83735; 83880; 84484; 85025; 87070; 87081; 87086; 87181; 87205; 93005; 93926; 93970; 94640; 94664; 99285; J7620; J8499

== ENCOUNTER 2017-06-01 13:30 | Outpatient (RCR) | payer MEDICARE, OTHER ==
[~2017-06-01 13:30] MED LIST changes: +VIT B 12 PO
== END 2017-06-19 | disposition home or self-care (01) ==
LOC: WCC 13:30
DX: L89.153 Pressure ulcer of sacral region, stage 3 (principal); L89.893 Pressure ulcer of other site, stage 3; Z87.891 Personal history of nicotine dependence; E11.9 Type 2 diabetes mellitus without complications; I10 Essential (primary) hypertension; I25.2 Old myocardial infarction; Z86.73 Personal history of transient ischemic attack (TIA), and cerebral infarction without residual deficits; Z79.84 Long term (current) use of oral hypoglycemic drugs
CPT/HCPCS: 11043